=== PATIENT | male | born 1980 | race African-American/Black ===

== ENCOUNTER 2016-12-18 00:23 | Emergency (ER) | payer SELFPAY ==
[~2016-12-18] VITALS: Ht 172.7 cm; Wt 90.7 kg
[~2016-12-18 00:23] MED LIST: IBUPROFEN800 MG ORAL; PROTONIX40 M2 GT
[2016-12-18] MEDS ORDERED: NKM (00:41)
[2016-12-18 00:49] VITALS: BP 137/106
[2016-12-18] MEDS ORDERED: FUROSEMIDE40 MG ORAL (00:52)
[2016-12-18 00:59] VITALS: BP 137/106
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
== END 2016-12-18 01:05 | disposition home or self-care (01) ==
LOC: EMR 01:00
DX: M79.605 Pain in left leg (principal); M79.604 Pain in right leg; R60.9 Edema, unspecified
CPT/HCPCS: 99283

== ENCOUNTER 2016-12-28 23:45 | Inpatient (IN) | payer MEDICAID ==
[~2016-12-28] VITALS: Ht 172.7 cm; Wt 90.7 kg
[~2016-12-28 23:45] MED LIST changes: +FUROSEMIDE40 MG ORAL; +NKM
[2016-12-29] VITALS (8 sets, daily range): BP systolic 116–142; BP diastolic 58–103
[2016-12-29] MEDS ORDERED: ACETAMINOPHEN-1 EAC1 ORAL (00:09)
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
[2016-12-29] MEDS ORDERED: Ketorolac 30mg Inj IV ONE (01:00)
[2016-12-29 01:01] LABS: APPEARANCE,URINE CLEAR; KETONES,URINE NEGATIVE (NEGATIVE); LEUKOCYTE ESTERASE ,URINE NEGATIVE (NEGATIVE); NITRITE,URINE NEGATIVE (NEGATIVE); PH,URINE 6 (4.5-8.0); UROBILINOGEN,URINE 1 MG/DL (0.0-1.0)
[2016-12-29 01:07] LABS: BASOPHILS % (AUTO) 0.8 % (0.0-2.0); EOSINOPHILS % (AUTO) 0.6 % (0.0-3.0); LYMPHOCYTES % (AUTO) 29.5 % (20.0-45.0); MEAN CORPUSCULAR HEMOGLOBIN 28.4 PG (27.0-31.0); MEAN CORPUSCULAR HGB CONC 31.7 G/DL (32.0-36.0); MEAN CORPUSCULAR VOLUME 90 FL (80-99); MEAN PLATELET VOLUME 10.1 FL (6.5-10.1); MONOCYTES % (AUTO) 5.7 % (1.0-10.0); NEUTROPHILS % (AUTO) 63.4 % (45.0-75.0); PLATELET COUNT 226 K/UL (150-450); RED BLOOD COUNT 4.49 M/UL (4.70-6.10); RED CELL DISTRIBUTION WIDTH 13.1 % (11.6-14.8); WHITE BLOOD COUNT 13.5 K/UL (4.8-10.8)
[2016-12-29 01:08] LABS: PROTEIN,URINE NEGATIVE (NEGATIVE)
[2016-12-29 01:09] LABS: BACTERIA,URINE FEW /HPF; RBC,URINE 0 /HPF (0 - 0); SQUAMOUS EPITHELIAL CELL,UR FEW /LPF (NONE/OCC); WBC,URINE 0 /HPF (0 - 0)
[2016-12-29 01:13] LABS: TROPONIN I < 0.30 ng/mL (<=0.30)
[2016-12-29 01:16] LABS: ALANINE AMINOTRANSFERASE 42 U/L (3-41); ALBUMIN/GLOBULIN RATIO 1.1 (1.0-2.7); ANION GAP 17 (5-15); ASPARTATE AMINO TRANSFERASE 36 U/L (5-40); CALCIUM 8.7 mg/dL (8.6-10.2); CARBON DIOXIDE 22 mEQ/L (20-30); CHLORIDE 98 mEQ/L (98-107); CREATININE 1.2 mg/dL (0.7-1.2); GLOMERULAR FILTRATION RATE > 60 mL/min (>60); HEMOLYSIS 8; SODIUM 137 mEQ/L (135-145); TOTAL PROTEIN 6.4 g/dL (6.6-8.7)
[2016-12-29] MEDS ORDERED: DuoNeb 0.5-3(2.5)mg/3ml neb HHN PRN (08:00)
[2016-12-29] MEDS ORDERED: Miralax 17gm pkt ORAL PRN (08:00)
--- NOTE | 2016-12-29 08:35 | Cardiology Progress Note ---
Assessment/Plan Assessment/Plan leg pain dyspnea ? chf substance abuse he seems to be doing relatively well sat room air are 98-99% now await echo will need treatment for diastolci htn will need low dose acei for his htn if systolic dysunction will need further therpay otherwise he may be able to go home soon [id number] Objective Last 24 Hour Vital Signs Date Time Temp Pulse Resp B/P Pulse Ox O2 Delivery O2 Flow Rate FiO2 12/29/16 07:49 112 22 128/79 97 Room Air 12/29/16 07:20 98.0 110 18 139/99 99 Room Air 12/29/16 07:20 110 18 Room Air 12/29/16 05:25 97.4 107 17 122/83 98 Room Air 12/29/16 03:17 97.4 112 21 125/88 96 Room Air 12/29/16 01:37 97.4 12/29/16 00:17 97.4 115 21 129/91 100 Room Air 12/29/16 00:15 115 20 Room Air 12/29/16 00:04 128 128/106 95 Room Air Intake and Output 12/28/16 12/29/16 19:00 07:00 Output Total 600 ml Balance -600 ml Output Urine Total 600 ml # Voids 3 Laboratory Tests Test 12/29/16 00:45 White Blood Count 13.5 K/UL (4.8-10.8) H Red Blood Count 4.49 M/UL (4.70-6.10) L Hemoglobin 12.7 G/DL (14.2-18.0) L Hematocrit 40.2 % (42.0-52.0) L Mean Corpuscular Volume 90 FL (80-99) Mean Corpuscular Hemoglobin 28.4 PG (27.0-31.0) Mean Corpuscular Hemoglobin Concent 31.7 G/DL (32.0-36.0) L Red Cell Distribution Width 13.1 % (11.6-14.8) Platelet Count 226 K/UL (150-450) Mean Platelet Volume 10.1 FL (6.5-10.1) Neutrophils (%) (Auto) 63.4 % (45.0-75.0) Lymphocytes (%) (Auto) 29.5 % (20.0-45.0) Monocytes (%) (Auto) 5.7 % (1.0-10.0) Eosinophils (%) (Auto) 0.6 % (0.0-3.0) Basophils (%) (Auto) 0.8 % (0.0-2.0) Urine Color Yellow Urine Appearance Clear Urine pH 6 (4.5-8.0) Urine Specific [place] 1.020 (1.005-1.035) Urine Protein Negative (NEGATIVE) Urine Glucose (UA) Negative (NEGATIVE) Urine Ketones Negative (NEGATIVE) Urine Occult Blood Negative (NEGATIVE) Urine Nitrite Negative (NEGATIVE) Urine Bilirubin Negative (NEGATIVE) Urine Urobilinogen 1 MG/DL (0.0-1.0) H Urine Leukocyte Esterase Negative (NEGATIVE) Urine RBC 0 /HPF (0 - 0) Urine WBC 0 /HPF (0 - 0) Urine Squamous Epithelial Cells Few /LPF (NONE/OCC) Urine Bacteria Few /HPF (NONE) Sodium Level 137 mEQ/L (135-145) Potassium Level 4.0 mEQ/L (3.4-4.9) Chloride Level 98 mEQ/L (98-107) Carbon Dioxide Level 22 mEQ/L (20-30) Anion Gap 17 (5-15) H Blood Urea Nitrogen 19 mg/dL (7-23) Creatinine 1.2 mg/dL (0.7-1.2) Estimat Glomerular Filtration Rate > 60 mL/min (>60) Glucose Level 122 mg/dL (74-106) H Calcium Level 8.7 mg/dL (8.6-10.2) Total Bilirubin 0.6 mg/dL (0.0-1.2) Aspartate Amino Transf (AST/SGOT) 36 U/L (5-40) Alanine Aminotransferase (ALT/SGPT) 42 U/L (3-41) H Alkaline Phosphatase 126 U/L (40-129) Troponin I < 0.30 ng/mL (<=0.30) Pro-B-Type Natriuretic Peptide 2258 pg/mL (0-125) H Total Protein 6.4 g/dL (6.6-8.7) L Albumin 3.4 g/dL (3.5-5.2) L Globulin 3.0 g/dL Albumin/Globulin Ratio 1.1 (1.0-2.7) Urine Opiates Screen Negative (NEGATIVE) Urine Barbiturates Screen Negative (NEGATIVE) Phencyclidine (PCP) Screen Negative (NEGATIVE) Urine Amphetamines Screen Positive (NEGATIVE) H Urine Benzodiazepines Screen Negative (NEGATIVE) Urine Cocaine Screen Negative (NEGATIVE) Urine Marijuana (THC) Screen Positive (NEGATIVE) H MARY LARKIN Dec 29, 2016 08:35
[2016-12-29] MEDS ORDERED: Lisinopril 2.5mg tab ORAL SCH (09:00)
[2016-12-29 09:25] LABS: TROPONIN I < 0.30 ng/mL (<=0.30)
[2016-12-29] MEDS: Heparin 5000 units/ml inj SUBQ SCH ×2 (09:39→21:44)
--- NOTE | 2016-12-29 09:43 | Diagnostic Imaging Report ---
Indications: Shortness of breath Technique: Portable AP chest Findings: Comparison: None Suboptimal inspiration, lordotic projection, poor image quality due to exposure factors limit evaluation. Cardiac silhouette enlarged. Pulmonary vasculature difficult to evaluate. Hazy opacity right lung base. Left lung base not well evaluated. No obvious pleural abnormality. IMPRESSION: Limited exam due to technical factors described Suggestion of focal lung opacity right lung base, may be atelectatic, congestive, or pneumonic. Cardiomegaly Upright PA and lateral chest radiographs with better inspiratory effort and optimal technique recommended for more complete evaluation.
--- NOTE | 2016-12-29 10:19 | Consultation ---
DATE OF CONSULTATION: CARDIOLOGY CONSULTATION: CONSULTING PHYSICIAN: Geraldo Turner M.D. REFERRING PHYSICIAN: Erika Cote M.D. REASON FOR REFERRAL: Possible congestive heart failure. HISTORY OF PRESENT ILLNESS: This is a 36-year-old gentleman who presented to the emergency room because of leg pain for two weeks and shortness of breath for about 10 days cannot walk much. He states that he is short of breath in any position, does wake up at night because of shortness of breath . He has occasional pain in the chest that he had a difficult time explaining, but only lasted approximately few seconds and goes away by itself. No dizziness or lightheadedness. No heart pounding palpitations. PAST MEDICAL HISTORY: He denied diabetes, high blood pressure, heart attack, cancer, stroke, hepatitis, tuberculosis, asthma, emphysema, ulcers, kidney problems, liver problems, thyroid problems, anemia, arthritis, HIV, AIDS, and prior congestive heart failure. SOCIAL HISTORY: He occasionally smokes and occasionally drinks. He denies any drug use except for admitted to marijuana. REVIEW OF SYSTEMS: Gastrointestinal: Negative Genitourinary: Negative. Pulmonary: Negative. Constitutional: Negative. Neurologic: Negative. PHYSICAL EXAMINATION: GENERAL: Shows be overweight middle aged gentleman in no apparent respiratory distress. VITAL SIGNS: Blood pressure is anywhere between 122/83 to 139/99, heart rate is 112 to 115, temperature 97.4, and oxygen saturation 99% to 100% on room air is documented. NECK: Supple. No jugular venous distention. LUNGS: Relatively clear to auscultation although some forced expiratory breath sounds. The Doppler wave noted there is no crackles noted. CARDIAC: Regular rhythm. Tachycardic. No heaves, thrills, or gallops noted. ABDOMEN: Soft and obese. Positive bowel sounds. EXTREMITIES: There is trace edema of the lower extremities. NEUROLOGIC: He is awake, alert, and responsive. LABORATORY VALUES: Urine drug screen positive for amphetamines and positive for marijuana. White count 13.5, hemoglobin 12.7, and platelet count of 226,000. Sodium is 137, potassium 4.2, chloride 88, bicarbonate 22, BUN of 19, creatinine 1.2, and glucose of 122. Troponin less than 0.3. ProBNP is only 2200. Liver function tests appeared to be normal. Urinalysis appears to be unremarkable. Imaging, he cannot find any x-ray of the chest. Other data includes EKG, EKG shows a sinus tachycardia, rate of 120, and normal QRS axis and some nonspecific T-wave changes and some delay in R-wave progression. ASSESSMENT AND PLAN: 1. Leg pain. 2. Dyspnea. 3. Positive drug screen for marijuana and amphetamines. Dr. Cote, this patient was seen in cardiac consultation. Lungs appeared to be relatively clear. I am unable to locate the chest x-ray for review. However the emergency room physician indicates no consolidation, no pneumothorax, cardiomegaly with vascular congestion. The patient is being admitted with a diagnosis of congestive heart failure due to possible underlying drug abuse, which he absolutely denies and nevertheless an echocardiogram is needed to evaluate his systolic function. He does not have overt signs of heart failure on examination of significant degree although he has been treated in the emergency room. He was noted to have some slight rales at the bases on the emergency room physician's evaluation. He did have diastolic blood pressure being quite high with systolic appears to be intact. His oxygen saturations have been adequate. I would recommend waiting for an echocardiogram on him to see if he truly has any systolic or diastolic dysfunction and he is being treated with intravenous Lasix anyway if systolic dysfunction is present, then of course, he will need the therapy for that eventually. Dr. Cote, thank you for allowing me to participate in the care of this patient. Geraldo Turner M.D. DR: YU JOB#: [id number] CC:
--- NOTE | 2016-12-29 10:20 | History and Physical ---
History of Present Illness General Date patient seen: Dec 29, 2016 Reason for Hospitalization: Edema Present Illness HPI 36-year-old male with no past medical history presented with chief complaint of lower extremity and swelling. He had a cxr in ER showing severe cardiomegaly and chf and possible infiltrate. Allergies: Coded Allergies: No Known Allergies (Unverified , 08/25/13) Medication History Scheduled Furosemide* (Lasix*), 40 MG ORAL DAILY Ibuprofen* (Motrin*), 800 MG ORAL Q8H No Known Medications* (NKM - No Known Medications*), 0 ., (Reported) Pantoprazole Sodium (Protonix), 40 MG GT DAILY Discontinued Medications Acetaminophen With Codeine (T#3) (Tylenol #3 Tab*), 1 TAB ORAL Q4H PRN for For Pain, (Reported) Discontinued Reason: Therapy completed Patient History Healthcare decision maker Resuscitation status Advanced Directive on File Past Medical/Surgical History Past Medical/Surgical History: (1) Amphetamine abuse (2) Cardiomyopathy Review of Systems All Other Systems: negative except mentioned in HPI Physical Exam Lines, tubes and drains: peripheral, PICC HEENT: normocephalic, atraumatic Neck: non-tender, normal alignment Respiratory/Chest: chest wall non-tender, lungs clear Cardiovascular/Chest: normal peripheral pulses, normal rate Abdomen: normal bowel sounds Genitourinary/Rectal: normal genital exam, normal rectal exam Last 24 Hour Vital Signs Date Time Temp Pulse Resp B/P Pulse Ox O2 Delivery O2 Flow Rate FiO2 12/29/16 09:38 128/79 12/29/16 09:28 112 20 Room Air 12/29/16 07:49 112 22 128/79 97 Room Air 12/29/16 07:20 98.0 110 18 139/99 99 Room Air 12/29/16 07:20 110 18 Room Air 12/29/16 05:25 97.4 107 17 122/83 98 Room Air 12/29/16 03:17 97.4 112 21 125/88 96 Room Air 12/29/16 01:37 97.4 12/29/16 00:17 97.4 115 21 129/91 100 Room Air 12/29/16 00:15 115 20 Room Air 12/29/16 00:04 128 128/106 95 Room Air Intake and Output 12/28/16 12/29/16 19:00 07:00 Output Total 600 ml Balance -600 ml Output Urine Total 600 ml # Voids 3 Laboratory Tests Test 12/29/16 00:45 12/29/16 08:35 White Blood Count 13.5 K/UL (4.8-10.8) H Red Blood Count 4.49 M/UL (4.70-6.10) L Hemoglobin 12.7 G/DL (14.2-18.0) L Hematocrit 40.2 % (42.0-52.0) L Mean Corpuscular Volume 90 FL (80-99) Mean Corpuscular Hemoglobin 28.4 PG (27.0-31.0) Mean Corpuscular Hemoglobin Concent 31.7 G/DL (32.0-36.0) L Red Cell Distribution Width 13.1 % (11.6-14.8) Platelet Count 226 K/UL (150-450) Mean Platelet Volume 10.1 FL (6.5-10.1) Neutrophils (%) (Auto) 63.4 % (45.0-75.0) Lymphocytes (%) (Auto) 29.5 % (20.0-45.0) Monocytes (%) (Auto) 5.7 % (1.0-10.0) Eosinophils (%) (Auto) 0.6 % (0.0-3.0) Basophils (%) (Auto) 0.8 % (0.0-2.0) Urine Color Yellow Urine Appearance Clear Urine pH 6 (4.5-8.0) Urine Specific [place] 1.020 (1.005-1.035) Urine Protein Negative (NEGATIVE) Urine Glucose (UA) Negative (NEGATIVE) Urine Ketones Negative (NEGATIVE) Urine Occult Blood Negative (NEGATIVE) Urine Nitrite Negative (NEGATIVE) Urine Bilirubin Negative (NEGATIVE) Urine Urobilinogen 1 MG/DL (0.0-1.0) H Urine Leukocyte Esterase Negative (NEGATIVE) Urine RBC 0 /HPF (0 - 0) Urine WBC 0 /HPF (0 - 0) Urine Squamous Epithelial Cells Few /LPF (NONE/OCC) Urine Bacteria Few /HPF (NONE) Sodium Level 137 mEQ/L (135-145) Potassium Level 4.0 mEQ/L (3.4-4.9) Chloride Level 98 mEQ/L (98-107) Carbon Dioxide Level 22 mEQ/L (20-30) Anion Gap 17 (5-15) H Blood Urea Nitrogen 19 mg/dL (7-23) Creatinine 1.2 mg/dL (0.7-1.2) Estimat Glomerular Filtration Rate > 60 mL/min (>60) Glucose Level 122 mg/dL (74-106) H Calcium Level 8.7 mg/dL (8.6-10.2) Total Bilirubin 0.6 mg/dL (0.0-1.2) Aspartate Amino Transf (AST/SGOT) 36 U/L (5-40) Alanine Aminotransferase (ALT/SGPT) 42 U/L (3-41) H Alkaline Phosphatase 126 U/L (40-129) Troponin I < 0.30 ng/mL (<=0.30) < 0.30 ng/mL (<=0.30) Pro-B-Type Natriuretic Peptide 2258 pg/mL (0-125) H Total Protein 6.4 g/dL (6.6-8.7) L Albumin 3.4 g/dL (3.5-5.2) L Globulin 3.0 g/dL Albumin/Globulin Ratio 1.1 (1.0-2.7) Urine Opiates Screen Negative (NEGATIVE) Urine Barbiturates Screen Negative (NEGATIVE) Phencyclidine (PCP) Screen Negative (NEGATIVE) Urine Amphetamines Screen Positive (NEGATIVE) H Urine Benzodiazepines Screen Negative (NEGATIVE) Urine Cocaine Screen Negative (NEGATIVE) Urine Marijuana (THC) Screen Positive (NEGATIVE) H Height (Feet): 5 Height (Inches): 8.00 Weight (Pounds): 200 Medications Current Medications Medications (Trade) Dose Ordered Sig/Leonora Route PRN Reason Start Time Stop Time Status Last Admin Dose Admin Acetaminophen (Tylenol) 650 mg Q4H PRN ORAL Fever>100.5 12/29/16 08:00 01/28/17 07:59 Albuterol/ Ipratropium (DuoNeb 0.5-3(2.5)mg/3ml) 3 ml Q4H PRN HHN Shortness of Breath 12/29/16 08:00 01/03/17 07:59 Dextrose (Dextrose 50%) STAT PRN IV Hypoglycemia 12/29/16 08:00 01/28/17 07:59 Furosemide (Lasix) 40 mg EVERY 8 HOURS IV 12/29/16 14:00 01/28/17 13:59 UNV Heparin Sodium (Porcine) (Heparin 5000 units/ml) 5,000 units EVERY 12 HOURS SUBQ 12/29/16 09:00 01/28/17 08:59 12/29/16 09:39 Lisinopril (Zestril) 5 mg DAILY ORAL 12/29/16 09:00 01/28/17 08:59 12/29/16 09:38 Ondansetron HCl (Zofran) 4 mg Q6H PRN IVP Nausea & Vomiting 12/29/16 08:00 01/28/17 07:59 Polyethylene Glycol (Miralax) 17 gm DAILYPRN PRN ORAL Constipation 12/29/16 08:00 01/28/17 07:59 Temazepam (Restoril) 15 mg HSPRN PRN ORAL Insomnia 12/29/16 21:00 01/05/17 20:59 Assessment/Plan Problem List: (1) Acute on chronic diastolic (congestive) heart failure ICD Codes: I50.33 - Acute on chronic diastolic (congestive) heart failure SNOMED: 06131116, 884033372 (2) Amphetamine abuse ICD Codes: F15.10 - Other stimulant abuse, uncomplicated SNOMED: 80228895 Assessment/Plan diuretics respiratory treatment cardiology evaluation sputum for c/s, iv antibiotics for potential Pneumonia MARY CORRIGAN Dec 29, 2016 10:20
--- NOTE | 2016-12-29 12:43 | Cardiology Report ---
APPROVED REPORT EXAM: Two-dimensional and M-mode echocardiogram with Doppler and color Doppler. INDICATION Left ventricular function M-Mode DIMENSIONS IVSd1.1 (0.7-1.1cm)Left Atrium (MM)5.2 (1.6-4.0cm) LVDd6.3 (3.5-5.6cm)Aortic Root2.9 (2.0-3.7cm) PWd1.1 (0.7-1.1cm)Aortic Cusp Exc.1.8 (1.5-2.0cm) LVDs6.1 (2.5-4.0cm) PWs1.3 cm Mild left ventricular enlargement. Global left ventricular hypokinesis.Septal dyskinesis. Left ventricular ejection fraction estimated to be less than 20 %. No evidence of left ventricular hypertrophy. No evidence of pericardial fat or effusion. Moderate bi-atrial enlargement by 2D. Focal aortic valve sclerosis with adequate cusp excursion Thickened mitral valve leaflets with normal excursion. Mitral annulus and aortic root calcification. Pulmonic valve not well visualized. Normal tricuspid valve structure. IVC dilated at 2.3cm with no physiologic collapse. A color flow and spectral Doppler study was performed and revealed: Mild aortic regurgitation. Moderate mitral regurgitation (3jets). Left ventricular diastolic dysfunction not obtainable due to A-FIB. Moderate tricuspid regurgitation. Tricuspid systolic velocities suggests peak right ventricular systolic pressure of 49 mmHg Consistent with moderate pulmonary hypertension.
[2016-12-29] MEDS ORDERED: Ketorolac 30mg Inj IV PRN (13:00)
--- NOTE | 2016-12-29 14:32 | Cardiology Report ---
APPROVED REPORT EKG Measurement Heart [id number] Sinus tachycardia with fusion complexes Cannot rule out Anterior infarct, age undetermined Abnormal ECG
[2016-12-30 00:20] VITALS: BP 132/90
[2016-12-30 04:13] VITALS: BP 130/86
[2016-12-30 07:58] LABS: BASOPHILS % (AUTO) 0.8 % (0.0-2.0); EOSINOPHILS % (AUTO) 1.4 % (0.0-3.0); LYMPHOCYTES % (AUTO) 26.5 % (20.0-45.0); MEAN CORPUSCULAR HEMOGLOBIN 27.4 PG (27.0-31.0); MEAN CORPUSCULAR HGB CONC 30.3 G/DL (32.0-36.0); MEAN CORPUSCULAR VOLUME 90 FL (80-99); MEAN PLATELET VOLUME 9.2 FL (6.5-10.1); MONOCYTES % (AUTO) 6.2 % (1.0-10.0); NEUTROPHILS % (AUTO) 65.2 % (45.0-75.0); PLATELET COUNT 226 K/UL (150-450); RED BLOOD COUNT 4.73 M/UL (4.70-6.10); RED CELL DISTRIBUTION WIDTH 13.1 % (11.6-14.8); WHITE BLOOD COUNT 13.2 K/UL (4.8-10.8)
[2016-12-30 08:01] VITALS: BP 118/80
[2016-12-30] MEDS: Heparin 5000 units/ml inj SUBQ SCH ×2 (08:14→21:18)
[2016-12-30 08:21] LABS: ALANINE AMINOTRANSFERASE 37 U/L (3-41); ALBUMIN/GLOBULIN RATIO 1.1 (1.0-2.7); ANION GAP 13 (5-15); ASPARTATE AMINO TRANSFERASE 28 U/L (5-40); CALCIUM 8.9 mg/dL (8.6-10.2); CARBON DIOXIDE 27 mEQ/L (20-30); CHLORIDE 99 mEQ/L (98-107); CREATININE 1.1 mg/dL (0.7-1.2); GLOMERULAR FILTRATION RATE > 60 mL/min (>60); HEMOLYSIS 1; POTASSIUM 3.7 mEQ/L (3.4-4.9); SODIUM 139 mEQ/L (135-145); TOTAL PROTEIN 6.6 g/dL (6.6-8.7)
[2016-12-30 08:51] LABS: BILIRUBIN,DIRECT 0.3 mg/dL (0.1-0.3)
[2016-12-30] MEDS ORDERED: Lisinopril 10mg tab ORAL SCH (09:00)
[2016-12-30 09:30] LABS: ANION GAP 18 (5-15); CALCIUM 8.9 mg/dL (8.6-10.2); CARBON DIOXIDE 24 mEQ/L (20-30); CHLORIDE 97 mEQ/L (98-107); CREATININE 1.1 mg/dL (0.7-1.2); GLOMERULAR FILTRATION RATE > 60 mL/min (>60); HEMOLYSIS 3; PHOSPHORUS 3.8 mg/dL (2.5-4.8); POTASSIUM 3.6 mEQ/L (3.4-4.9); SODIUM 139 mEQ/L (135-145)
[2016-12-30 09:31] LABS: TROPONIN I < 0.30 ng/mL (<=0.30)
--- NOTE | 2016-12-30 11:01 | Diagnostic Imaging Report ---
Indication: DYSPNEA Technique: One view of the chest Comparison: 12/29/2016 Findings: The heart is enlarged. There is bilateral interstitial edema again demonstrated. This appears slightly improved, although that could be an artifact of slightly increased exposure technique of the current study. Pleural spaces are clear. Impression: Bilateral interstitial edema, equivocally slightly improved over one day. Otherwise stable
[2016-12-30 11:20] VITALS: BP 121/81
--- NOTE | 2016-12-30 15:09 | Pulmonology Progress Note ---
Assessment/Plan Problems: (1) Acute on chronic diastolic (congestive) heart failure (2) Amphetamine abuse Assessment/Plan diuresing well echo is 20% convinced the patient to stay until seen by alumina refinery operator Subjective ROS Limited/Unobtainable: No Interval Events: less short of breath Allergies: Coded Allergies: No Known Allergies (Unverified , 08/25/13) Objective Last 24 Hour Vital Signs Date Time Temp Pulse Resp B/P Pulse Ox O2 Delivery O2 Flow Rate FiO2 12/30/16 12:00 122 12/30/16 11:20 97.9 120 20 121/81 100 Room Air 12/30/16 08:10 118/80 12/30/16 08:01 96.6 118 20 118/80 96 Nasal Cannula 3.0 12/30/16 08:00 121 12/30/16 04:13 98.6 110 21 130/86 98 Room Air 12/30/16 04:00 119 12/30/16 00:20 97.8 110 20 132/90 99 Nasal Cannula 2.0 12/30/16 00:00 120 12/29/16 20:00 96.6 69 19 132/78 100 Room Air 12/29/16 20:00 120 12/29/16 19:30 90 20 Room Air 21 12/29/16 17:09 123/98 Room Air 12/29/16 16:00 96.9 117 18 142/103 97 Nasal Cannula 2.0 Intake and Output 12/29/16 12/30/16 19:00 07:00 Intake Total 900 ml Output Total 1700 ml 1600 ml Balance -800 ml -1600 ml Intake Oral 800 ml IV Total 100 ml Output Urine Total 1700 ml 1600 ml # Voids 1 General Appearance: WD/WN HEENT: normocephalic, atraumatic Respiratory/Chest: lungs clear Abdomen: normal bowel sounds, soft, non tender Extremities: no cyanosis Laboratory Tests 12/30/16 06:55: White Blood Count 13.2H, Red Blood Count 4.73, Hemoglobin 13.0L, Hematocrit 42.8 , Mean Corpuscular Volume 90, Mean Corpuscular Hemoglobin 27.4, Mean Corpuscular Hemoglobin Concent 30.3L, Red Cell Distribution Width 13.1, Platelet Count 226, Mean Platelet Volume 9.2, Neutrophils (%) (Auto) 65.2, Lymphocytes (%) (Auto) 26.5, Monocytes (%) (Auto) 6.2, Eosinophils (%) (Auto) 1.4, Basophils (%) (Auto) 0.8, Sodium Level 139, Potassium Level 3.7, Chloride Level 99, Carbon Dioxide Level 27, Anion Gap 13, Blood Urea Nitrogen 15, Creatinine 1.1, Estimat Glomerular Filtration Rate > 60, Glucose Level 105, Calcium Level 8.9, Phosphorus Level 3.8, Total Bilirubin 1.2, Direct Bilirubin 0.3, Aspartate Amino Transf (AST/SGOT) 28, Alanine Aminotransferase (ALT/SGPT) 37, Alkaline Phosphatase 114, Troponin I < 0.30, Pro-B-Type Natriuretic Peptide 2162H, Total Protein 6.6, Albumin 3.5, Globulin 3.1, Albumin/Globulin Ratio 1.1 Current Medications Medications (Trade) Dose Ordered Sig/Leonora Route PRN Reason Start Time Stop Time Status Last Admin Dose Admin Acetaminophen (Tylenol) 650 mg Q4H PRN ORAL Fever/Headache/Mild Pain 12/29/16 22:00 01/28/17 21:59 12/30/16 13:01 Acetaminophen/ Hydrocodone Bitart ([place] 5/325) 1 tab Q4H PRN ORAL Moderate Pain (Pain Scale 4-6) 12/30/16 15:15 01/06/17 15:14 UNV Albuterol/ Ipratropium (DuoNeb 0.5-3(2.5)mg/3ml) 3 ml Q4H PRN HHN Shortness of Breath 12/29/16 08:00 01/03/17 07:59 Dextrose (Dextrose 50%) STAT PRN IV Hypoglycemia 12/29/16 08:00 01/28/17 07:59 Furosemide (Lasix) 40 mg TID IV 12/29/16 13:00 01/28/17 12:59 12/30/16 12:58 Heparin Sodium (Porcine) (Heparin 5000 units/ml) 5,000 units EVERY 12 HOURS SUBQ 12/29/16 09:00 01/28/17 08:59 12/30/16 08:14 Levofloxacin (Levaquin) 100 ml @ 100 mls/hr Q24H IVPB 12/29/16 13:00 01/05/17 12:59 12/30/16 12:59 Lisinopril 10 mg 10 mg DAILY ORAL 12/30/16 09:00 01/29/17 08:59 12/30/16 08:10 Ondansetron HCl (Zofran) 4 mg Q6H PRN IVP Nausea & Vomiting 12/29/16 08:00 01/28/17 07:59 Polyethylene Glycol (Miralax) 17 gm DAILYPRN PRN ORAL Constipation 12/29/16 08:00 01/28/17 07:59 Temazepam (Restoril) 30 mg HSPRN PRN ORAL Insomnia 12/30/16 21:00 01/06/17 20:59 MARY CORRIGAN Dec 30, 2016 15:09
[2016-12-30] MEDS ORDERED: Norco 5mg/325mg tab ORAL PRN (15:15)
[2016-12-30 16:00] VITALS: BP 129/77
--- NOTE | 2016-12-30 16:32 | Cardiology Progress Note ---
Assessment/Plan Assessment/Plan leg pain acute systolic heart failure substance abuse cardio,myopathy MR pulm htn wbc is still elevated blood cx are not mature yet need med adjusted i have extensively discussed with pt about stopping drugs and avoid excessive water and na intake he has a obrien sandwich at bedside i told him he need to stop eating that way will contimnue diuretic increase acei i am avoiding giving him bb as his uds positive for amphetamine may start coreg tomorrow d/w dr elizabeth the need for fu with acardiologst to follow and adjust meds as well as other things he may need for microchip specialist was discused with pt he understood he also understood the need to take meds and that these meds amparo lneed to be adjusted intermediate duplex neg Subjective Cardiovascular: Denies: chest pain, irregular heart rate, lightheadedness Respiratory: Denies: SOB with excertion Objective Last 24 Hour Vital Signs Date Time Temp Pulse Resp B/P Pulse Ox O2 Delivery O2 Flow Rate FiO2 12/30/16 12:00 122 12/30/16 11:20 97.9 120 20 121/81 100 Room Air 12/30/16 08:10 118/80 12/30/16 08:01 96.6 118 20 118/80 96 Nasal Cannula 3.0 12/30/16 08:00 121 12/30/16 04:13 98.6 110 21 130/86 98 Room Air 12/30/16 04:00 119 12/30/16 00:20 97.8 110 20 132/90 99 Nasal Cannula 2.0 12/30/16 00:00 120 12/29/16 20:00 96.6 69 19 132/78 100 Room Air 12/29/16 20:00 120 12/29/16 19:30 90 20 Room Air 21 12/29/16 17:09 123/98 Room Air General Appearance: no apparent distress, alert Neck: supple Cardiovascular: normal rate, regular rhythm Respiratory/Chest: lungs clear, normal breath sounds Abdomen: normal bowel sounds, non tender, soft Extremities: moderate edema Intake and Output 12/29/16 12/30/16 19:00 07:00 Intake Total 900 ml Output Total 1700 ml 1600 ml Balance -800 ml -1600 ml Intake Oral 800 ml IV Total 100 ml Output Urine Total 1700 ml 1600 ml # Voids 1 Laboratory Tests Test 2/15/17 06:55 White Blood Count 13.2 K/UL (4.8-10.8) H Red Blood Count 4.73 M/UL (4.70-6.10) Hemoglobin 13.0 G/DL (14.2-18.0) L Hematocrit 42.8 % (42.0-52.0) Mean Corpuscular Volume 90 FL (80-99) Mean Corpuscular Hemoglobin 27.4 PG (27.0-31.0) Mean Corpuscular Hemoglobin Concent 30.3 G/DL (32.0-36.0) L Red Cell Distribution Width 13.1 % (11.6-14.8) Platelet Count 226 K/UL (150-450) Mean Platelet Volume 9.2 FL (6.5-10.1) Neutrophils (%) (Auto) 65.2 % (45.0-75.0) Lymphocytes (%) (Auto) 26.5 % (20.0-45.0) Monocytes (%) (Auto) 6.2 % (1.0-10.0) Eosinophils (%) (Auto) 1.4 % (0.0-3.0) Basophils (%) (Auto) 0.8 % (0.0-2.0) Sodium Level 139 mEQ/L (135-145) Potassium Level 3.7 mEQ/L (3.4-4.9) Chloride Level 99 mEQ/L (98-107) Carbon Dioxide Level 27 mEQ/L (20-30) Anion Gap 13 (5-15) Blood Urea Nitrogen 15 mg/dL (7-23) Creatinine 1.1 mg/dL (0.7-1.2) Estimat Glomerular Filtration Rate > 60 mL/min (>60) Glucose Level 105 mg/dL (74-106) Calcium Level 8.9 mg/dL (8.6-10.2) Phosphorus Level 3.8 mg/dL (2.5-4.8) Total Bilirubin 1.2 mg/dL (0.0-1.2) Direct Bilirubin 0.3 mg/dL (0.1-0.3) Aspartate Amino Transf (AST/SGOT) 28 U/L (5-40) Alanine Aminotransferase (ALT/SGPT) 37 U/L (3-41) Alkaline Phosphatase 114 U/L (40-129) Troponin I < 0.30 ng/mL (<=0.30) Pro-B-Type Natriuretic Peptide 2162 pg/mL (0-125) H Total Protein 6.6 g/dL (6.6-8.7) Albumin 3.5 g/dL (3.5-5.2) Globulin 3.1 g/dL Albumin/Globulin Ratio 1.1 (1.0-2.7) MARY LARKIN Dec 30, 2016 16:32
[2016-12-30 20:00] VITALS: BP 129/84
[2016-12-30] MEDS: Lisinopril 10mg tab ORAL SCH (21:18)
[2016-12-31 00:08] VITALS: BP 138/90
[2016-12-31 04:06] VITALS: BP 131/84
[2016-12-31 06:53] LABS: ANION GAP 15 (5-15); CARBON DIOXIDE 28 mEQ/L (20-30); CHLORIDE 96 mEQ/L (98-107); CREATININE 1.2 mg/dL (0.7-1.2); GLOMERULAR FILTRATION RATE > 60 mL/min (>60); HEMOLYSIS 7; MAGNESIUM 1.9 mg/dL (1.7-2.5); POTASSIUM 3.8 mEQ/L (3.4-4.9); SODIUM 139 mEQ/L (135-145)
[2016-12-31 06:56] LABS: TROPONIN I < 0.30 ng/mL (<=0.30)
[2016-12-31 07:39] VITALS: BP 117/87
[2016-12-31] MEDS: Lisinopril 10mg tab ORAL SCH (08:52)
[2016-12-31] MEDS: Heparin 5000 units/ml inj SUBQ SCH (08:54)
[2016-12-31 11:24] VITALS: BP 123/77
[2016-12-31 16:00] VITALS: BP 137/74
[2016-12-31] MEDS ORDERED: COREG3.125 MG ORAL (16:53)
--- NOTE | 2016-12-31 16:55 | Pulmonology Progress Note ---
Assessment/Plan Problems: (1) Acute on chronic diastolic (congestive) heart failure (2) Amphetamine abuse Assessment/Plan diuresing well echo is 20% pt wants to go home will dc on coreg and lasix pt understands the gravity of his illness Subjective ROS Limited/Unobtainable: No Constitutional: Reports: no symptoms HEENT: Repors: no symptoms Allergies: Coded Allergies: No Known Allergies (Unverified , 08/25/13) Objective Last 24 Hour Vital Signs Date Time Temp Pulse Resp B/P Pulse Ox O2 Delivery O2 Flow Rate FiO2 12/31/16 12:00 115 12/31/16 11:24 96.3 117 20 123/77 98 Room Air 12/31/16 08:52 121 117/87 12/31/16 08:52 117/87 12/31/16 08:00 119 12/31/16 07:39 97.3 121 20 117/87 99 Room Air 12/31/16 07:10 103 21 Room Air 21 12/31/16 04:06 98.7 119 20 131/84 98 Room Air 12/31/16 04:00 120 12/31/16 00:08 98.8 114 22 138/90 97 Room Air 12/31/16 00:00 125 12/30/16 21:18 129/84 12/30/16 20:00 97.7 125 20 129/84 97 Room Air 12/30/16 19:30 115 20 Room Air 21 Intake and Output 12/30/16 12/31/16 19:00 07:00 Intake Total 1340 ml 480 ml Output Total 2975 ml 1150 ml Balance -1635 ml -670 ml Intake Oral 1240 ml 480 ml IV Total 100 ml Output Urine Total 2975 ml 1150 ml # Voids 2 General Appearance: WD/WN HEENT: normocephalic Respiratory/Chest: chest wall non-tender, lungs clear Cardiovascular: normal peripheral pulses, normal rate Abdomen: normal bowel sounds, soft, non tender Skin: no rash Neurologic/Psychiatric: senior talent acquisition specialist II-XII grossly normal Microbiology Date/Time Source Procedure Growth Status 12/29/16 14:00 Blood Blood Culture - Preliminary NO GROWTH AFTER 24 HOURS Resulted 12/29/16 13:45 Blood Blood Culture - Preliminary NO GROWTH AFTER 24 HOURS Resulted Laboratory Tests 12/31/16 06:00: Sodium Level 139, Potassium Level 3.8, Chloride Level 96L, Carbon Dioxide Level 28, Anion Gap 15, Blood Urea Nitrogen 20, Creatinine 1.2, Estimat Glomerular Filtration Rate > 60, Glucose Level 121H, Calcium Level 9.0, Magnesium Level 1.9 , Troponin I < 0.30, Pro-B-Type Natriuretic Peptide 2066H Current Medications Medications (Trade) Dose Ordered Sig/Leonora Route PRN Reason Start Time Stop Time Status Last Admin Dose Admin Acetaminophen (Tylenol) 650 mg Q4H PRN ORAL Fever/Headache/Mild Pain 12/29/16 22:00 01/28/17 21:59 12/30/16 13:01 Acetaminophen/ Hydrocodone Bitart ([place] 5/325) 1 tab Q4H PRN ORAL Moderate Pain (Pain Scale 4-6) 12/30/16 15:15 01/06/17 15:14 Albuterol/ Ipratropium 3 ml 3 ml Q4H PRN HHN Shortness of Breath 12/29/16 08:00 01/03/17 07:59 Carvedilol (Coreg) 3.125 mg EVERY 12 HOURS ORAL 12/31/16 09:00 01/30/17 08:59 12/31/16 08:52 Dextrose (Dextrose 50%) STAT PRN IV Hypoglycemia 12/29/16 08:00 01/28/17 07:59 Furosemide (Lasix) 40 mg TID IV 12/29/16 13:00 01/28/17 12:59 12/31/16 12:07 Heparin Sodium (Porcine) (Heparin 5000 units/ml) 5,000 units EVERY 12 HOURS SUBQ 12/29/16 09:00 01/28/17 08:59 12/31/16 08:54 Levofloxacin (Levaquin) 100 ml @ 100 mls/hr Q24H IVPB 12/29/16 13:00 01/05/17 12:59 12/31/16 12:07 Lisinopril (Zestril) 10 mg Q12HR ORAL 12/30/16 21:00 01/29/17 20:59 12/31/16 08:52 Ondansetron HCl (Zofran) 4 mg Q6H PRN IVP Nausea & Vomiting 12/29/16 08:00 01/28/17 07:59 Polyethylene Glycol (Miralax) 17 gm DAILYPRN PRN ORAL Constipation 12/29/16 08:00 01/28/17 07:59 Temazepam (Restoril) 30 mg HSPRN PRN ORAL Insomnia 12/30/16 21:00 01/06/17 20:59 12/30/16 21:17 MARY CORRIGAN Dec 31, 2016 16:55
--- NOTE | 2016-12-31 18:27 | Cardiology Progress Note ---
Assessment/Plan Assessment/Plan leg pain acute systolic heart failure substance abuse cardio,myopathy MR pulm htn wbc is still elevated blood cx neg so far again today 12/31/2016 i have extensively discussed with pt about stopping drugs and avoid excessive water and na intake he has a obrien sandwich at bedside i told him he need to stop eating that way will contimnue diuretic increase acei i am avoiding giving him bb as his uds positive for amphetamine may start coreg tomorrow need for fu with acardiologst to follow and adjust meds as well as other things he may need for residential was discused with pt he understood he also understood the need to take meds and that these meds amparo lneed to be adjusted residential duplex neg i wrote perscription fo hsi acei adn coreg adn diuretic Subjective Cardiovascular: Denies: chest pain, lightheadedness, palpitations Respiratory: Denies: SOB with excertion, shortness of breath Gastrointestinal/Abdominal: Denies: abdominal pain Genitourinary: Denies: burning Objective Last 24 Hour Vital Signs Date Time Temp Pulse Resp B/P Pulse Ox O2 Delivery O2 Flow Rate FiO2 12/31/16 16:00 96.6 117 20 137/74 Nasal Cannula 2.0 99 12/31/16 12:00 115 12/31/16 11:24 96.3 117 20 123/77 98 Room Air 12/31/16 08:52 121 117/87 12/31/16 08:52 117/87 12/31/16 08:00 119 12/31/16 07:39 97.3 121 20 117/87 99 Room Air 12/31/16 07:10 103 21 Room Air 21 12/31/16 04:06 98.7 119 20 131/84 98 Room Air 12/31/16 04:00 120 12/31/16 00:08 98.8 114 22 138/90 97 Room Air 12/31/16 00:00 125 12/30/16 21:18 129/84 12/30/16 20:00 97.7 125 20 129/84 97 Room Air 12/30/16 19:30 115 20 Room Air 21 General Appearance: no apparent distress, alert Neck: supple Cardiovascular: normal rate, regular rhythm Respiratory/Chest: lungs clear Abdomen: normal bowel sounds, non tender, soft Extremities: no swelling Intake and Output 12/30/16 12/31/16 19:00 07:00 Intake Total 1340 ml 480 ml Output Total 2975 ml 1150 ml Balance -1635 ml -670 ml Intake Oral 1240 ml 480 ml IV Total 100 ml Output Urine Total 2975 ml 1150 ml # Voids 2 Laboratory Tests Test 12/31/16 06:00 Sodium Level 139 mEQ/L (135-145) Potassium Level 3.8 mEQ/L (3.4-4.9) Chloride Level 96 mEQ/L (98-107) L Carbon Dioxide Level 28 mEQ/L (20-30) Anion Gap 15 (5-15) Blood Urea Nitrogen 20 mg/dL (7-23) Creatinine 1.2 mg/dL (0.7-1.2) Estimat Glomerular Filtration Rate > 60 mL/min (>60) Glucose Level 121 mg/dL (74-106) H Calcium Level 9.0 mg/dL (8.6-10.2) Magnesium Level 1.9 mg/dL (1.7-2.5) Troponin I < 0.30 ng/mL (<=0.30) Pro-B-Type Natriuretic Peptide 2066 pg/mL (0-125) H Microbiology Date/Time Source Procedure Growth Status 12/29/16 14:00 Blood Blood Culture - Preliminary NO GROWTH AFTER 24 HOURS Resulted 12/29/16 13:45 Blood Blood Culture - Preliminary NO GROWTH AFTER 24 HOURS Resulted MARY LARKIN Dec 31, 2016 18:27
[2016-12-31] MEDS ORDERED: LISINOPRIL5 MG ORAL (18:35)
[2016-12-31] MEDS ORDERED: NS 275ml ONE (20:14)
[2016-12-31] MEDS ORDERED: Tubing IV Secondary IV ONE (20:14)
--- NOTE | 2017-01-01 12:08 | Discharge Summary ---
Discharge Summary Hospital Course Date of Admission Dec 29, 2016 at 02:23 Date of Discharge Dec 31, 2016 at 20:15 Admitting Diagnosis CHF HPI Tariq Crocker is a 36 year old male who was admitted on Dec 29, 2016 at 02 :23 for Congestive Heart Failure Hospital Course [id number] Discharge Discharge Disposition Patient was discharged to Home (01) Discharge Diagnoses: Natty Bender NP Jan 01, 2017 12:08
--- NOTE | 2017-01-01 15:00 | Cardiology Report ---
APPROVED REPORT EKG Measurement Heart [id number] Sinus tachycardia Possible Left atrial enlargement Cannot rule out Anterior infarct, age undetermined Abnormal ECG
--- NOTE | 2017-01-01 20:39 | Discharge Summary 2 SIG ---
DATE OF ADMISSION: 12/29/2016 DATE OF DISCHARGE: 12/31/2016 LINE HAUL DRIVER: Geraldo Turner M.D. BRIEF HOSPITAL COURSE: The patient is a 36-year-old male with no past medical history, presented with chief complaint of lower extremities swelling. On evaluation at the ED, chest x-ray showed severe cardiomegaly and congestive heart failure with possible infiltrates. Urine toxicology was positive for amphetamines. He was given respiratory treatment and IV antibiotics. Dr. Turner was consulted. EKG showed sinus tachycardia, rate of 120 with normal QRS axis, and nonspecific T-wave changes and some delay in R-wave progression. Urine drug screen was positive for marijuana and amphetamine. The patient's congestive heart failure possible due to underlying drug abuse, which he absolutely denies. Echocardiogram done showed ejection fraction less than 20% with global left ventricular hypokinesis, left ventricular enlargement, and moderate hypertension. He was educated on stopping illicit drugs and was educated to avoid excessive water and sodium intake. He was given diuretics and SIVA inhibitors. Venous duplex was negative. He was advised need for follow up with software qa manager to adjust his medications. He was discharged to home with prescription for SIVA inhibitor, Coreg, and diuretics. FINAL DIAGNOSES: 1. Acute systolic congestive heart failure. 2. Polysubstance abuse. 3. Cardiomyopathy. 4. Mitral regurgitation. 5. Pulmonary hypertension. 6. Amphetamine and marijuana use. Erika Cote M.D. I have been assigned to dictate discharge summary on this account and I was not involved in the patient's management. Natty Bender N.P. DR: OPAL JOB#: [id number] CC: SPARKLE
--- NOTE | 2017-01-01 21:48 | Diagnostic Imaging Report ---
APPROVED REPORT CPT Code: 62840 Present Symptoms Comments: R/O DVT BILATERAL: Imaging reveals a patent deep venous system bilaterally. There is no evidence of thrombus within the femoral, popliteal or tibial segments. The greater saphenous veins are also within normal limits. Doppler indicates normal spontaneous flow within these segments.
== END 2016-12-31 20:15 | disposition home or self-care (01) | DRG 194 ==
LOC: EMR 12-29 00:17 → 2W 12-29 02:23 → EDBEDREQ 12-29 06:21 → 2E 12-29 18:15
DX: I50.43 Acute on chronic combined systolic (congestive) and diastolic (congestive) heart failure (principal); I27.2 Other secondary pulmonary hypertension; I42.9 Cardiomyopathy, unspecified; E66.9 Obesity, unspecified; F15.10 Other stimulant abuse, uncomplicated; F17.200 Nicotine dependence, unspecified, uncomplicated; I34.0 Nonrheumatic mitral (valve) insufficiency; Z68.30 Body mass index [BMI] 30.0-30.9, adult
CPT/HCPCS: 36415; 71010; 80048; 80053; 80069; 80300; 81001; 82248; 83735; 83880; 84484; 85025; 87040; 93005; 93306; 93970; 94664; J7620

== ENCOUNTER 2017-02-15 07:55 | Emergency (ER) | payer SELFPAY ==
[~2017-02-15] VITALS: Ht 172.7 cm; Wt 100.7 kg
[~2017-02-15 07:55] MED LIST changes: +ACETAMINOPHEN-1 EAC1 ORAL; +COREG3.125 MG ORAL; +LISINOPRIL5 MG ORAL
[2017-02-15 08:30] VITALS: BP 131/92
[2017-02-15] MEDS ORDERED: FUROSEMIDE40 MG ORAL ×2 (08:41→08:44)
[2017-02-15] MEDS ORDERED: LISINOPRIL5 MG ORAL (08:41)
[2017-02-15] MEDS ORDERED: COREG3.125 MG ORAL (08:41)
[2017-02-15 08:59] VITALS: BP 126/98
--- NOTE | 2017-02-15 10:53 | Emergency Room Report ---
History of Present Illness General Chief Complaint: Dyspnea/Respdistress Source: Patient Present Illness HPI [id number] presents with request for medication refill. Requesting refill of Lasix and 2 HTN meds. C/o mild SOB since running out of meds. Denies chest pain, cough, fever/chills, leg pain/swelling. Denies drug use - states "clean" since December. Per EMR, history of ?systolic CHF, EF 20% on Echo in Dec 2016. History of meth use. Allergies: Coded Allergies: No Known Allergies (Unverified , 08/25/13) Patient History Past Medical History: CHF Past Surgical History: none Social History: Reports: alcohol use, drug use, smoking Immunizations: UTD Reviewed Nursing Documentation: PMH: Agreed, PSxH: Agreed Nursing Documentation-PMH Hx Cardiac Problems: Yes Hx Cancer: No Hx Gastrointestinal Problems: No Review of Systems All Other Systems: negative except mentioned in HPI Physical Exam Vital Signs Date Time Temp Pulse Resp B/P Pulse Ox O2 Delivery O2 Flow Rate FiO2 02/15/17 08:28 98.1 100 18 130/88 99 Room Air Sp02 EP Interpretation: reviewed, abnormal General Appearance: normal inspection, well appearing, no apparent distress, alert, GCS 15, non-toxic Head: normocephalic, atraumatic Eyes: bilateral eye EOMI, bilateral eye PERRL ENT: normal ENT inspection, hearing grossly normal, normal voice Neck: normal inspection, full range of motion, supple, no bony tend Respiratory: normal inspection, chest non-tender, lungs clear, normal breath sounds, no rhonchi, no respiratory distress, no retraction, no accessory muscle use, no wheezing Cardiovascular #1: regular rate, rhythm, no edema Gastrointestinal: normal inspection, normal bowel sounds, non tender, soft, no guarding, no hernia Genitourinary: no CVA tenderness Musculoskeletal: normal inspection, back normal, normal range of motion, Braulio' s Sign negative, other - no peripheral edema Neurologic: normal inspection, alert, oriented x3, responsive, high school professional III-XII nml as tested, motor strength/tone normal, speech normal Psychiatric: normal inspection, judgement/insight normal, mood/affect normal Skin: normal inspection, normal color, no rash Lymphatic: normal inspection Medical Decision Making Diagnostic Impression: Primary Impression: Medication refill ER Course Medications refilled Tachycardia likely d/t non-compliance with beta-jonathan for HTN Not in acute CHF currently. Vitals show O2 sat 100%, no tachypnea. No rales/ crackles on exam. Lying on stretcher without SOB. Advised to continue avoiding illict drugs, take meds as prescribed F/up with PMD Last Vital Signs Date Time Temp Pulse Resp B/P Pulse Ox O2 Delivery O2 Flow Rate FiO2 02/15/17 08:59 104 18 126/98 100 Room Air 02/15/17 08:30 97.1 Status: improved Disposition: HOME, SELF-CARE Condition: Improved Scripts Furosemide* (LASIX*) 40 Mg Tablet 40 MG ORAL DAILY, #30 TAB Prov: GWEN GU M.D. 02/15/17 Lisinopril (LISINOPRIL*) 5 Mg Tablet 10 MG ORAL Q12HR for 30 Days, #60 TAB Prov: GWEN GU M.D. 02/15/17 Carvedilol (Coreg) 3.125 Mg Tablet 3.125 MG ORAL EVERY 12 HOURS for 30 Days, TAB Prov: GWEN GU M.D. 02/15/17 Referrals: NOT CHOSEN IPA/,REFERRING (PCP) Patient Instructions: Heart Failure, [id number] Additional Instructions: - Please continue to avoid illegal drugs as they can worsen your heart condition - Take lasix - water pill - once daily as prescribed - Take the 2 blood pressure medications - coreg and lisinopril - as prescribed - Return to ER for severe shortness of breath or chest pain despite taking medications - Follow up with your doctor in 1 week GWEN GU M.D. Feb 15, 2017 10:53
== END 2017-02-15 09:00 | disposition home or self-care (01) ==
LOC: EMR 08:49
DX: I10 Essential (primary) hypertension (principal); Z76.0 Encounter for issue of repeat prescription; F17.210 Nicotine dependence, cigarettes, uncomplicated; F19.10 Other psychoactive substance abuse, uncomplicated; I50.9 Heart failure, unspecified
CPT/HCPCS: 99284

== ENCOUNTER 2017-03-01 10:04 | Emergency (ER) | payer SELFPAY ==
[2017-03-01] VITALS (11 sets, daily range): BP systolic 108–140; BP diastolic 73–101
[~2017-03-01] VITALS: Ht 172.7 cm; Wt 90.7 kg
--- NOTE | 2017-03-01 11:10 | Emergency Room Report ---
History of Present Illness General Chief Complaint: Abdominal Pain Source: Patient Present Illness HPI Patient is a 36-year-old male who presented after increased abdominal pain and bloating to his abdomen. Patient stated that he had gradual onset of symptoms. Patient reports having prior history of congestive heart failure as well as pedal edema. Patient stated that he had previously had been taking diuretics. He had gradual onset of symptoms. Patient denied any shortness of breath. He reports having some left upper abdomen pain. The patient stated that he had decreased exercise tolerance. Allergies: Coded Allergies: No Known Allergies (Unverified , 08/25/13) Patient History Past Medical History: see triage record, CHF Reviewed Nursing Documentation: PMH: Agreed, PSxH: Agreed Nursing Documentation-PMH Past Medical History: No History, Except For Hx Cardiac Problems: Yes - CHF Hx Cancer: No Hx Gastrointestinal Problems: No Review of Systems All Other Systems: negative except mentioned in HPI Physical Exam Vital Signs Date Time Temp Pulse Resp B/P Pulse Ox O2 Delivery O2 Flow Rate FiO2 03/01/17 10:32 97.5 112 18 140/101 99 Room Air Sp02 EP Interpretation: reviewed, normal General Appearance: normal inspection, well appearing, no apparent distress, alert, GCS 15 Head: atraumatic ENT: normal ENT inspection, hearing grossly normal, normal voice Neck: normal inspection, full range of motion, supple, no bony tend Respiratory: normal inspection, lungs clear, normal breath sounds, no respiratory distress, no retraction, no wheezing Cardiovascular #1: regular rate, rhythm, no edema Gastrointestinal: normal inspection, normal bowel sounds, non tender, soft, no guarding, no hernia Genitourinary: no CVA tenderness Musculoskeletal: normal inspection, back normal, normal range of motion Neurologic: normal inspection, alert, oriented x3, responsive, machinery engineer III-XII nml as tested, speech normal Psychiatric: normal inspection, judgement/insight normal, mood/affect normal Skin: normal inspection, normal color, no rash Medical Decision Making Diagnostic Impression: Primary Impression: Acute on chronic diastolic (congestive) heart failure ER Course Patient presented for abdominal pain.Patient presented for abdominal pain. Differential diagnoses included ischemic bowel, appendicitis, perforated viscus , abdominal aortic aneurysm, inferior myocardial infarction, viral gastroenteritis Because of complexity of patient's case laboratory testing and imaging studies were ordered.Dr. Cote was contacted for inpatient management due to complexity of medical condition. The patient was given IV Lasix. The patient was on medical supply technician was noted to have sinus tachycardia with a rate of 102 without PVCs or ectopy. EKG interpreted by me showed sinus tachycardia with a rate of [address] changes. Patient noted have some lateral T-wave inversion. Labs Test 03/01/17 11:25 White Blood Count 12.8 K/UL (4.8-10.8) Red Blood Count 5.02 M/UL (4.70-6.10) Hemoglobin 13.7 G/DL (14.2-18.0) Hematocrit 44.8 % (42.0-52.0) Mean Corpuscular Volume 89 FL (80-99) Mean Corpuscular Hemoglobin 27.4 PG (27.0-31.0) Mean Corpuscular Hemoglobin Concent 30.7 G/DL (32.0-36.0) Red Cell Distribution Width 14.7 % (11.6-14.8) Platelet Count 212 K/UL (150-450) Mean Platelet Volume 9.1 FL (6.5-10.1) Neutrophils (%) (Auto) 70.3 % (45.0-75.0) Lymphocytes (%) (Auto) 22.8 % (20.0-45.0) Monocytes (%) (Auto) 5.5 % (1.0-10.0) Eosinophils (%) (Auto) 0.7 % (0.0-3.0) Basophils (%) (Auto) 0.8 % (0.0-2.0) Prothrombin Time 11.8 SEC (9.30-11.50) Prothromb Time International Ratio 1.2 (0.9-1.1) Activated Partial Thromboplast Time 25 SEC (23-33) Urine Color Pale yellow Urine Appearance Clear Urine pH 6.5 (4.5-8.0) Urine Specific [place] 1.005 (1.005-1.035) Urine Protein Negative (NEGATIVE) Urine Glucose (UA) Negative (NEGATIVE) Urine Ketones Negative (NEGATIVE) Urine Occult Blood Negative (NEGATIVE) Urine Nitrite Negative (NEGATIVE) Urine Bilirubin Negative (NEGATIVE) Urine Urobilinogen Normal MG/DL (0.0-1.0) Urine Leukocyte Esterase Negative (NEGATIVE) Sodium Level 139 mEQ/L (135-145) Potassium Level 3.7 mEQ/L (3.4-4.9) Chloride Level 99 mEQ/L (98-107) Carbon Dioxide Level 27 mEQ/L (20-30) Anion Gap 13 (5-15) Blood Urea Nitrogen 15 mg/dL (7-23) Creatinine 1.3 mg/dL (0.7-1.2) Estimat Glomerular Filtration Rate > 60 mL/min (>60) Glucose Level 133 mg/dL (74-106) Calcium Level 8.9 mg/dL (8.6-10.2) Total Bilirubin 1.6 mg/dL (0.0-1.2) Direct Bilirubin 0.4 mg/dL (0.1-0.3) Aspartate Amino Transf (AST/SGOT) 37 U/L (5-40) Alanine Aminotransferase (ALT/SGPT) 42 U/L (3-41) Alkaline Phosphatase 120 U/L (40-129) Troponin I < 0.30 ng/mL (<=0.30) Total Protein 6.7 g/dL (6.6-8.7) Albumin 3.5 g/dL (3.5-5.2) Globulin 3.2 g/dL Albumin/Globulin Ratio 1.0 (1.0-2.7) Lipase 19 U/L (< 60) EKG Diagnostic Results Rate: normal Rhythm: NSR ST Segments: no acute changes Rhythm Strip Diag. Results EP Interpretation: yes Rhythm: NSR, no PVC's, no ectopy Chest X-Ray Diagnostic Results EP Interpretation: Yes Findings: no effusion, no pneumothorax, other - cardiomegaly Number of Views: 1 Last Vital Signs Date Time Temp Pulse Resp B/P Pulse Ox O2 Delivery O2 Flow Rate FiO2 03/01/17 10:47 97.5 112 18 140/101 99 Room Air Status: unchanged Disposition: ADMITTED INPATIENT Condition: Serious Sae Sanchez Mar 01, 2017 11:10
[2017-03-01] MEDS ORDERED: Mylanta II UD 30ml ORAL ONE (11:15)
[2017-03-01 12:03] LABS: APPEARANCE,URINE CLEAR; BASOPHILS % (AUTO) 0.8 % (0.0-2.0); EOSINOPHILS % (AUTO) 0.7 % (0.0-3.0); KETONES,URINE NEGATIVE (NEGATIVE); LEUKOCYTE ESTERASE ,URINE NEGATIVE (NEGATIVE); LYMPHOCYTES % (AUTO) 22.8 % (20.0-45.0); MEAN CORPUSCULAR HEMOGLOBIN 27.4 PG (27.0-31.0); MEAN CORPUSCULAR HGB CONC 30.7 G/DL (32.0-36.0); MEAN CORPUSCULAR VOLUME 89 FL (80-99); MEAN PLATELET VOLUME 9.1 FL (6.5-10.1); MONOCYTES % (AUTO) 5.5 % (1.0-10.0); NEUTROPHILS % (AUTO) 70.3 % (45.0-75.0); NITRITE,URINE NEGATIVE (NEGATIVE); PH,URINE 6.5 (4.5-8.0); PLATELET COUNT 212 K/UL (150-450); PROTEIN,URINE NEGATIVE (NEGATIVE); RED BLOOD COUNT 5.02 M/UL (4.70-6.10); RED CELL DISTRIBUTION WIDTH 14.7 % (11.6-14.8); UROBILINOGEN,URINE NORMAL MG/DL (0.0-1.0); WHITE BLOOD COUNT 12.8 K/UL (4.8-10.8)
[2017-03-01 12:12] LABS: INR 1.2 (0.9-1.1); PROTHROMBIN TIME 11.8 SEC (9.30-11.50)
[2017-03-01 12:14] LABS: ALANINE AMINOTRANSFERASE 42 U/L (3-41); ANION GAP 13 (5-15); ASPARTATE AMINO TRANSFERASE 37 U/L (5-40); CALCIUM 8.9 mg/dL (8.6-10.2); CARBON DIOXIDE 27 mEQ/L (20-30); CHLORIDE 99 mEQ/L (98-107); CREATININE 1.3 mg/dL (0.7-1.2); GLOMERULAR FILTRATION RATE > 60 mL/min (>60); LIPASE 19 U/L (< 60); POTASSIUM 3.7 mEQ/L (3.4-4.9); SODIUM 139 mEQ/L (135-145); TOTAL PROTEIN 6.7 g/dL (6.6-8.7); TROPONIN I < 0.30 ng/mL (<=0.30)
[2017-03-01 12:27] LABS: BILIRUBIN,DIRECT 0.4 mg/dL (0.1-0.3); HEMOLYSIS 1
[2017-03-01] MEDS ORDERED: Miralax 17gm pkt ORAL PRN (14:00)
[2017-03-01] MEDS ORDERED: DuoNeb 0.5-3(2.5)mg/3ml neb HHN PRN (14:00)
--- NOTE | 2017-03-01 16:02 | Diagnostic Imaging Report ---
Indication: SOB Technique: One view of the chest Comparison: 12/30/2016 Findings: Lungs and pleural spaces are currently clear, previously demonstrated interstitial edema has cleared. Heart remains markedly enlarged. Impression: Cardiomegaly. No acute process.
[2017-03-01] MEDS ORDERED: PEPCID COMPLET1 EACH PO (20:23)
[2017-03-01] MEDS ORDERED: VISINE30 ML OP ×2 (20:25)
[2017-03-01] MEDS ORDERED: Lisinopril 10mg tab ORAL SCH (21:00)
[2017-03-01] MEDS ORDERED: Heparin 5000 units/ml inj SUBQ SCH (21:00)
[2017-03-02 00:04] VITALS: BP 110/81
--- NOTE | 2017-03-04 23:10 | Diagnostic Imaging Report ---
APPROVED REPORT CPT Code: 93713 Present Symptoms Comments: Pain BILATERAL: Imaging reveals a patent deep venous system bilaterally. There is no evidence of thrombus within the femoral, popliteal or tibial segments. The greater saphenous veins are also within normal limits. Doppler indicates normal spontaneous flow within these segments.
== END 2017-03-02 00:04 | disposition left against medical advice (07) ==
LOC: EMR 12:25 → UNDOADMIN 13:21 → 4W 13:21 → EDBEDREQ 13:41 → EMR 03-02 00:04
DX: I50.33 Acute on chronic diastolic (congestive) heart failure (principal)
CPT/HCPCS: 36415; 71010; 80053; 81003; 82248; 83690; 84484; 85025; 85610; 85730; 93005; 93970; 96372; 96374; 99284; J1644; J1940; J2405

== ENCOUNTER 2017-03-04 10:06 | Emergency (ER) | payer SELFPAY ==
[~2017-03-04] VITALS: Ht 172.7 cm; Wt 90.7 kg
[~2017-03-04 10:06] MED LIST changes: +PEPCID COMPLET1 EACH PO; +VISINE30 ML OP
[2017-03-04] MEDS ORDERED: Furosemide 40mg tab ORAL ONE (11:15)
[2017-03-04 12:05] VITALS: BP 127/85
[2017-03-04] MEDS ORDERED: LISINOPRIL10 MG ORAL (12:38)
[2017-03-04] MEDS ORDERED: PEPCID COMPLET1 EACH PO (12:38)
[2017-03-04] MEDS ORDERED: COREG3.125 MG ORAL (12:38)
[2017-03-04] MEDS ORDERED: FUROSEMIDE40 MG ORAL (12:38)
[2017-03-04] MEDS ORDERED: ACETAMINOPHEN-1 EAC1 ORAL (12:38)
[2017-03-04 12:53] VITALS: BP 127/85
--- NOTE | 2017-03-04 13:19 | Diagnostic Imaging Report ---
Indications: Chest pain Technique: Portable AP chest Findings: Comparison: And 03/01/17 Inspiratory effort has decreased. Bronchovascular markings have increased in right lung base. Left lung remains clear. Cardiac silhouette remains enlarged. Pulmonary vasculature remains within normal limits. No pleural abnormalities detected. IMPRESSION: Changes in right lung base most likely compressive in nature, due to decreased inspiration. Early pneumonia not excludable. Upright PA and lateral chest radiographs with better inspiratory effort and optimal technique recommended for more complete evaluation. Stable cardiomegaly
--- NOTE | 2017-03-04 13:33 | Diagnostic Imaging Report ---
Indications: Abdominal pain for one week Technique: Continuous helical CT imaging of the abdomen and pelvis was performed with automatic exposure control on a Siemens sensation [address] scanner. Axial, coronal, sagittal images reconstructed at 3 mm slice thickness. No oral or IV contrast was administered per patient's refusal CTDI volume(s): 18 mGy Total DLP: 954 mGy-cm Findings: Comparison: Contrast-enhanced CT abdomen pelvis at 1113 Lack of oral and IV contrast limits evaluation. Gastrointestinal tract remains nondistended throughout. Several foci of high attenuation material in the appendiceal lumen, latter otherwise unremarkable in appearance. No obvious mural thickening, adjacent stranding, extraluminal gas or loculated fluid collections. Mild ascites in the abdomen and pelvis. Apparent mild diffuse mural thickening/edema of gallbladder wall. Unenhanced liver, pancreas, spleen, adrenal glands, kidneys, ureters, urinary bladder, prostate, seminal vesicles, retroperitoneum, mesentery, remainder visualized abdominopelvic anatomy demonstrates no other obvious acute abnormality. Heart size has increased. Lung bases and adjacent pleural surfaces clear. No focal skeletal abnormalities detected. Degenerative changes again noted in lumbar, lower thoracic spine. IMPRESSION: Development of mild ascites, nonspecific Development of gallbladder wall thickening most likely secondary to ascites. Correlate clinically. No other evidence of acute abdominopelvic disease, with limitation as described. Subtle but potentially significant abnormalities may be missed. Repeat CT scan with full oral and IV contrast preparation recommended for more complete evaluation, as clinically indicated Increased heart size may represent worsening cardiomyopathy Degenerative spondylosis
--- NOTE | 2017-03-05 14:00 | Emergency Room Report ---
History of Present Illness General Chief Complaint: Abdominal Pain Source: Patient Present Illness HPI 36-year-old male presents to ED complaining of abdominal pain. Pain and epigastric region, 7/10, dull, nonradiating. No aggravating or relieving factors. Patient states there is fluid in his abdomen and in his legs. Patient states he has history of CHF. Ran out of his Lasix medication. Denies any chest pain shortness of breath. Patient states he was here a few days ago and was supposed to be admitted but left AMA. Denies nausea or vomiting. No aggravating or relieving factors. Denies any other associated symptom Allergies: Coded Allergies: No Known Allergies (Unverified , 08/25/13) Patient History Past Medical History: CHF Past Surgical History: none Pertinent Family History: none Social History: Denies: alcohol use, drug use, smoking Immunizations: UTD Reviewed Nursing Documentation: PMH: Agreed, PSxH: Agreed Nursing Documentation-PMH Hx Cardiac Problems: Yes - CHF Hx Cancer: No Hx Gastrointestinal Problems: No Review of Systems All Other Systems: negative except mentioned in HPI Physical Exam Vital Signs Date Time Temp Pulse Resp B/P Pulse Ox O2 Delivery O2 Flow Rate FiO2 03/04/17 10:14 97.2 116 20 119/78 96 Room Air Sp02 EP Interpretation: reviewed, normal General Appearance: no apparent distress, alert, GCS 15, non-toxic, obese Head: normocephalic Eyes: bilateral eye PERRL, bilateral eye normal inspection ENT: normal ENT inspection Neck: normal inspection Respiratory: chest non-tender, lungs clear, normal breath sounds, speaking full sentences Cardiovascular #1: regular rate, rhythm, no edema Gastrointestinal: normal bowel sounds, non tender, soft, no guarding, no rebound, tenderness - epigastric Rectal: deferred Genitourinary: no CVA tenderness Musculoskeletal: swelling - 2 + pitting edema b/l LE Neurologic: alert, oriented x3, responsive, motor strength/tone normal, sensory intact, speech normal Psychiatric: normal inspection Skin: normal inspection Lymphatic: normal inspection Medical Decision Making Diagnostic Impression: Primary Impression: CHF (congestive heart failure) Qualified Codes: I50.9 - Heart failure, unspecified Additional Impression: Acute gastritis ER Course Hospital Course 36-year-old M presents to ED with abdominal pain Differential diagnosis includes-appendicitis, cholecystitis, small bowel obstruction, gastritis, Clinical course Patient placed on stretcher. After initial history and physical I ordered labs , IV fluids, pain medications and CT scan Patient declined IV access or blood draw stating that he was here a few days ago. I reviewed labs from a few days ago and they were unremarkable CT scan shows no acute pathology, some fluid suggestive of CHF Patient showing no signs of distress. Lungs clear. No in any acute exacerbation. No reason for admission at this time. Patient is not compliant with his medications Given dose of Lasix here in ED per will be discharged on his home medications Is documented history of gastritis. Patient given Zantac care in ED with symptoms improved I feel this is a highly complex case requiring extensive working including EKG/ Rhythm strip, Xray/CT/US, Blood/urine lab work, repeat exams while in ED, and administration of strong opiates/narcotics for pain control, admission to hospital or close patient follow up. Diagnosis - CHF, gastritis Stable and discharged to home. Followup with PMD. Return to ED if symptoms recur or worsen CT/MRI/US Diagnostic Results CT/MRI/US Diagnostic Results : Imaging Test Ordered: CT A/P Impression no acute process. fluid in abdomen Last Vital Signs Date Time Temp Pulse Resp B/P Pulse Ox O2 Delivery O2 Flow Rate FiO2 03/04/17 12:53 97.2 111 20 127/85 95 Room Air Status: improved Disposition: HOME, SELF-CARE Condition: Stable Scripts Acetaminophen With Codeine (T#3) (TYLENOL #3 TAB*) Y Tab 1 TAB ORAL Q8H Y for For Pain, #20 TAB Prov: SUMIT SHELLEY M.D. 03/04/17 Lisinopril* (LISINOPRIL*) 10 Mg Tablet 10 MG ORAL DAILY, #30 TAB Prov: SUMIT SHELLEY M.D. 03/04/17 Carvedilol (Coreg) 3.125 Mg Tablet 3.125 MG ORAL EVERY 12 HOURS for 30 Days, TAB Prov: SUMIT SHELLEY M.D. 03/04/17 Famotidine/Ca Carb/Mag Hydrox (PEPCID COMPLETE TABLET CHEW) 1 Each Tab.chew 1 EACH PO DAILY, #30 TAB Prov: SUMIT SHELLEY M.D. 03/04/17 Furosemide* (LASIX*) 40 Mg Tablet 40 MG ORAL DAILY, #30 TAB Prov: SUMIT SHELLEY M.D. 03/04/17 Patient Instructions: Edema SUMIT SHELLEY M.D. Mar 05, 2017 14:00
== END 2017-03-04 12:54 | disposition home or self-care (01) ==
LOC: EMR 10:45
DX: I50.9 Heart failure, unspecified (principal); K29.00 Acute gastritis without bleeding; M47.816 Spondylosis without myelopathy or radiculopathy, lumbar region; I51.7 Cardiomegaly
CPT/HCPCS: 71010; 74176; 99284

== ENCOUNTER 2017-04-12 07:07 | Emergency (ER) | payer SELFPAY ==
[~2017-04-12] VITALS: Ht 172.7 cm; Wt 90.7 kg
[~2017-04-12 07:07] MED LIST changes: +LISINOPRIL10 MG ORAL
[2017-04-12] MEDS ORDERED: Ketorolac 30mg Inj IV ONE (07:30)
--- NOTE | 2017-04-12 07:39 | Emergency Room Report ---
History of Present Illness General Chief Complaint: Abdominal Pain Source: Patient Present Illness HPI The patient presents with total body pain. He also has dyspnea and fluid retention. The pain is worse in his left knee. It's causing him to have difficulty walking. Also has fairly severe dyspnea on exertion. He denies any fevers. The pain is from his head down to his feet. Did not take any medication. The patient was admitted to the hospital for and diagnosed with congestive heart failure. He's not sure what the cause was. He was hospitalized for 2 days. Denies any chest pain. He states that his heart is working at 20%. He was supposed to follow up but did not. He denies dx of gout. No nausea vomiting or diarrhea. He feels generalized weakness. He is hungry. He denies drugs. However - see below. Last discharge diagnoses: 1. Acute systolic congestive heart failure. 2. Polysubstance abuse. 3. Cardiomyopathy. 4. Mitral regurgitation. 5. Pulmonary hypertension. 6. Amphetamine and marijuana use. 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 Nursing Documentation: PMH: Agreed, PSxH: Agreed Nursing Documentation-PMH Past Medical History: No History, Except For Hx Cardiac Problems: Yes - CHF Hx Cancer: No Hx Gastrointestinal Problems: No Review of Systems All Other Systems: negative except mentioned in HPI Physical Exam Vital Signs Date Time Temp Pulse Resp B/P Pulse Ox O2 Delivery O2 Flow Rate FiO2 04/12/17 07:13 97.9 112 18 117/97 97 Room Air Sp02 EP Interpretation: reviewed, normal General Appearance: well appearing, no apparent distress, GCS 15 Head: normocephalic Eyes: bilateral eye PERRL, bilateral eye normal inspection ENT: moist mucus membranes - poor dentition Neck: supple Respiratory: lungs clear, normal breath sounds Cardiovascular #1: no JVD, tachycardia, edema - 1+ Cardiovascular #2: 2+ radial (R) Gastrointestinal: normal inspection, normal bowel sounds, non tender, no mass, non-distended, overweight Musculoskeletal: gait/station normal, normal range of motion, no calf tenderness, swelling - L knee effusion, not hot or erythema Neurologic: alert, oriented x3, grossly normal Psychiatric: mood/affect normal, no suicidal/homicidal ideation Skin: normal inspection, warm/dry Medical Decision Making Diagnostic Impression: Primary Impression: Gout Qualified Codes: M10.262 - Drug-induced gout, left knee Additional Impressions: Heart failure Qualified Codes: I50.42 - Chronic combined systolic (congestive) and diastolic (congestive) heart failure Amphetamine abuse ER Course The patient presents with total body pain and dyspnea on exertion. He also has left knee pain. The fact he is taking Lasix makes gout a possibility. Denies any recent trauma. Differential includes acute myocardial infarction, congestive heart failure, bronchitis, viral syndrome amongst others. Evaluation will be with EKG, chest x-ray and labs. The patient would be treated with Toradol and colchicine. Labs significant for elevated uric acid and BNP. CXR without significant pulmonary edema. + amphetamine Improved with treatment. No emergent condition requiring hospitalization. Discussed with patient need to return to 12 step program and to obtain PMD. Patient stable for outpatient observation and treatment. Laboratory Tests Test 04/12/17 07:24 White Blood Count 12.2 K/UL (4.8-10.8) H Red Blood Count 5.11 M/UL (4.70-6.10) Hemoglobin 14.1 G/DL (14.2-18.0) L Hematocrit 45.8 % (42.0-52.0) Mean Corpuscular Volume 90 FL (80-99) Mean Corpuscular Hemoglobin 27.6 PG (27.0-31.0) Mean Corpuscular Hemoglobin Concent 30.8 G/DL (32.0-36.0) L Red Cell Distribution Width 14.9 % (11.6-14.8) H Platelet Count 183 K/UL (150-450) Mean Platelet Volume 10.5 FL (6.5-10.1) H Neutrophils (%) (Auto) 61.8 % (45.0-75.0) Lymphocytes (%) (Auto) 29.5 % (20.0-45.0) Monocytes (%) (Auto) 6.4 % (1.0-10.0) Eosinophils (%) (Auto) 1.4 % (0.0-3.0) Basophils (%) (Auto) 0.9 % (0.0-2.0) Prothrombin Time 11.3 SEC (9.30-11.50) Prothrombin Time INR 1.1 (0.9-1.1) PTT 22 SEC (23-33) L Sodium Level 138 mEQ/L (135-145) Potassium Level 4.0 mEQ/L (3.4-4.9) Chloride Level 98 mEQ/L (98-107) Carbon Dioxide Level 24 mEQ/L (20-30) Anion Gap 16 (5-15) H Blood Urea Nitrogen 20 mg/dL (7-23) Creatinine 1.4 mg/dL (0.7-1.2) H Estimate Glomerular Filtration Rate > 60 mL/min (>60) Glucose Level 95 mg/dL (74-106) Uric Acid 9.4 mg/dL (3.0-7.5) H Calcium Level 9.2 mg/dL (8.6-10.2) Total Bilirubin 1.1 mg/dL (0.0-1.2) Direct Bilirubin 0.3 mg/dL (0.1-0.3) Aspartate Amino Transferase (AST) 37 U/L (5-40) Alanine Aminotransferase (ALT) 38 U/L (3-41) Alkaline Phosphatase 119 U/L (40-129) Total Creatine Kinase 131 U/L (38-174) Troponin I < 0.30 ng/mL (<=0.30) Pro-B-Type Natriuretic Peptide 2904 pg/mL (0-125) H Total Protein 7.0 g/dL (6.6-8.7) Albumin 3.7 g/dL (3.5-5.2) Globulin 3.3 g/dL Albumin/Globulin Ratio 1.1 (1.0-2.7) Urine Opiates Screen Negative (NEGATIVE) Urine Barbiturates Screen Negative (NEGATIVE) Phencyclidine (PCP) Screen Negative (NEGATIVE) Urine Amphetamines Screen Positive (NEGATIVE) H Urine Benzodiazepines Screen Negative (NEGATIVE) Urine Cocaine Screen Negative (NEGATIVE) Urine Marijuana (THC) Screen Positive (NEGATIVE) H EKG Diagnostic Results Rate: tachycardiac ST Segments: no acute changes Rhythm Strip Diag. Results EP Interpretation: yes Rhythm: no PVC's, no ectopy, other - ST 104 Chest X-Ray Diagnostic Results Findings: no consolidation, no effusion, no pneumothorax, other - inc cor Last Vital Signs Date Time Temp Pulse Resp B/P Pulse Ox O2 Delivery O2 Flow Rate FiO2 04/12/17 12:19 97.8 100 20 112/86 100 Room Air Status: improved Disposition: HOME, SELF-CARE Condition: Improved Scripts Tramadol Hcl* (ULTRAM*) 50 Mg Tablet 50 MG ORAL Q6H Y for For Pain, #10 TAB 0 Refills Prov: Roel Alejo M.D. 04/12/17 Indomethacin (Indocin) 75 Mg Capsule.er 75 MG ORAL Q8HR, #20 CAP Prov: Roel Alejo M.D. 04/12/17 Colchicine (Colchicine) 0.6 Mg Capsule 0.6 MG PO Q6HR Y for gout/joint pain, #20 CAP Prov: Roel Alejo M.D. 04/12/17 Roel Alejo M.D. April 12, 2017 07:38
[2017-04-12 08:09] LABS: BASOPHILS % (AUTO) 0.9 % (0.0-2.0); EOSINOPHILS % (AUTO) 1.4 % (0.0-3.0); LYMPHOCYTES % (AUTO) 29.5 % (20.0-45.0); MEAN CORPUSCULAR HEMOGLOBIN 27.6 PG (27.0-31.0); MEAN CORPUSCULAR HGB CONC 30.8 G/DL (32.0-36.0); MEAN CORPUSCULAR VOLUME 90 FL (80-99); MEAN PLATELET VOLUME 10.5 FL (6.5-10.1); MONOCYTES % (AUTO) 6.4 % (1.0-10.0); NEUTROPHILS % (AUTO) 61.8 % (45.0-75.0); PLATELET COUNT 183 K/UL (150-450); RED BLOOD COUNT 5.11 M/UL (4.70-6.10); RED CELL DISTRIBUTION WIDTH 14.9 % (11.6-14.8); WHITE BLOOD COUNT 12.2 K/UL (4.8-10.8)
[2017-04-12 08:11] LABS: INR 1.1 (0.9-1.1); PROTHROMBIN TIME 11.3 SEC (9.30-11.50)
[2017-04-12 08:16] LABS: TROPONIN I < 0.30 ng/mL (<=0.30)
[2017-04-12 08:19] LABS: ALANINE AMINOTRANSFERASE 38 U/L (3-41); ALBUMIN/GLOBULIN RATIO 1.1 (1.0-2.7); ANION GAP 16 (5-15); ASPARTATE AMINO TRANSFERASE 37 U/L (5-40); CALCIUM 9.2 mg/dL (8.6-10.2); CARBON DIOXIDE 24 mEQ/L (20-30); CHLORIDE 98 mEQ/L (98-107); CREATININE 1.4 mg/dL (0.7-1.2); GLOMERULAR FILTRATION RATE > 60 mL/min (>60); HEMOLYSIS 19; SODIUM 138 mEQ/L (135-145); URIC ACID 9.4 mg/dL (3.0-7.5)
[2017-04-12 08:22] VITALS: BP 132/95
[2017-04-12 08:40] LABS: BILIRUBIN,DIRECT 0.3 mg/dL (0.1-0.3)
[2017-04-12 09:42] VITALS: BP 110/89
--- NOTE | 2017-04-12 10:15 | Diagnostic Imaging Report ---
Indication: Dyspnea Comparison: 03/04/17 A single view chest radiograph was obtained. Findings: Mild interstitial edema suspected. Heart is enlarged. Bones are unremarkable. Impression: Mild interstitial edema suspected. No change.
[2017-04-12] MEDS ORDERED: COLCHICINE0.6 M1 PO (11:13)
[2017-04-12] MEDS ORDERED: TRAMADOL HCL50 MG ORAL (11:13)
[2017-04-12] MEDS ORDERED: INDOCIN75 MG ORAL (11:13)
[2017-04-12 12:10] VITALS: BP 112/86
[2017-04-12 12:19] VITALS: BP 112/86
--- NOTE | 2017-04-13 07:51 | Cardiology Report ---
APPROVED REPORT EKG Measurement Heart [id number] Sinus tachycardia Cannot rule out Anterior infarct, age undetermined Abnormal ECG
== END 2017-04-12 12:21 | disposition home or self-care (01) ==
LOC: EMR 07:56
DX: M10.9 Gout, unspecified (principal); I50.42 Chronic combined systolic (congestive) and diastolic (congestive) heart failure; F17.200 Nicotine dependence, unspecified, uncomplicated; F15.10 Other stimulant abuse, uncomplicated; M25.562 Pain in left knee; Z79.899 Other long term (current) drug therapy
CPT/HCPCS: 36415; 71010; 80053; 80300; 82248; 82550; 83880; 84484; 84550; 85025; 85610; 85730; 93005; 96374; 99284; J1885

== ENCOUNTER 2017-04-23 03:58 | Inpatient (IN) | payer SELFPAY ==
[~2017-04-23] VITALS: Ht 172.7 cm; Wt 108.0 kg
[2017-04-23] VITALS (8 sets, daily range): BP systolic 106–130; BP diastolic 74–96
[~2017-04-23 03:58] MED LIST changes: +COLCHICINE0.6 M1 PO; +INDOCIN75 MG ORAL; +TRAMADOL HCL50 MG ORAL
--- NOTE | 2017-04-23 04:37 | Emergency Room Report ---
History of Present Illness General Chief Complaint: Dyspnea/Respdistress Source: Patient, Family Member, Medical Record Present Illness HPI This is a 37-year-old male with a history of cardiomyopathy with ejection fraction around 20%. This is probably do to drug abuse. He denies amphetamine use for at least a week. He presents with chief complaint of abdominal pain. He checked in initially with shortness of breath as her chief complaint. He is out of his medication for a week now. No fever or chills. No nausea no vomiting. Pain is 10 out of 10. Also felt shortness of breath. Worse with exertion. No chest pain. Similar symptom in the past the Allergies: Coded Allergies: No Known Allergies (Unverified , 08/25/13) Patient History Past Medical History: see triage record, old chart reviewed, CHF Past Surgical History: other Pertinent Family History: none Social History: Reports: drug use, smoking Immunizations: other Reviewed Nursing Documentation: PMH: Agreed, PSxH: Agreed Nursing Documentation-PMH Hx Cardiac Problems: Yes - CHF Hx Cancer: No Hx Gastrointestinal Problems: No Review of Systems Eye: Denies: blurred vision, eye pain ENT: Denies: ear pain, nose congestion, throat swelling Respiratory: Reports: shortness of breath, Denies: cough Cardiovascular: Denies: chest pain, palpitations Gastrointestinal: Reports: abdominal pain, Denies: diarrhea, nausea, vomiting Musculoskeletal: Denies: back pain, joint pain Skin: Denies: rash Neurological: Denies: headache, numbness Endocrine: Denies: increased thirst, increased urine Hematologic/Lymphatic: Denies: easy bruising All Other Systems: negative except mentioned in HPI Physical Exam Vital Signs Date Time Temp Pulse Resp B/P Pulse Ox O2 Delivery O2 Flow Rate FiO2 04/23/17 04:04 97.2 101 16 120/80 98 Room Air vitals normal Sp02 EP Interpretation: reviewed, normal General Appearance: well appearing, no apparent distress, alert Head: normocephalic, atraumatic Eyes: bilateral eye EOMI, bilateral eye PERRL ENT: hearing grossly normal, normal pharynx Neck: full range of motion, supple, no meningismus Respiratory: chest non-tender, lungs clear, normal breath sounds Cardiovascular #1: regular rate, rhythm, no murmur Gastrointestinal: normal bowel sounds, non tender, no mass, no organomegaly, no bruit, non-distended Musculoskeletal: back normal, gait/station normal, normal range of motion, swelling - 1+ Neurologic: alert, oriented x3 Psychiatric: mood/affect normal Skin: warm/dry Medical Decision Making Diagnostic Impression: Primary Impression: CHF (congestive heart failure) Qualified Codes: I50.9 - Heart failure, unspecified Additional Impressions: Amphetamine abuse Noncompliance ER Course Patient present with generalized anasarca and CHF. He's not compliant with his medication. He diuresed most 2 L after IV Lasix. Still positive for methamphetamine. No evidence of ACS, PE, pneumonia to name a few. He would benefit from admission for continue with IV Lasix and further management of his medication. He may benefit from social service consult. Based on his ejection fraction around 20%, he may benefit from AICD. If he continued down this path, prognosis is poor and is likely. Laboratory Tests Test 04/23/17 04:37 White Blood Count 13.1 K/UL (4.8-10.8) H Red Blood Count 4.71 M/UL (4.70-6.10) Hemoglobin 13.0 G/DL (14.2-18.0) L Hematocrit 41.4 % (42.0-52.0) L Mean Corpuscular Volume 88 FL (80-99) Mean Corpuscular Hemoglobin 27.6 PG (27.0-31.0) Mean Corpuscular Hemoglobin Concent 31.5 G/DL (32.0-36.0) L Red Cell Distribution Width 14.7 % (11.6-14.8) Platelet Count 235 K/UL (150-450) Mean Platelet Volume 9.0 FL (6.5-10.1) Neutrophils (%) (Auto) 60.3 % (45.0-75.0) Lymphocytes (%) (Auto) 31.1 % (20.0-45.0) Monocytes (%) (Auto) 6.5 % (1.0-10.0) Eosinophils (%) (Auto) 1.3 % (0.0-3.0) Basophils (%) (Auto) 0.9 % (0.0-2.0) Sodium Level 136 mEQ/L (135-145) Potassium Level 4.1 mEQ/L (3.4-4.9) Chloride Level 98 mEQ/L (98-107) Carbon Dioxide Level 24 mEQ/L (20-30) Anion Gap 14 (5-15) Blood Urea Nitrogen 20 mg/dL (7-23) Creatinine 1.3 mg/dL (0.7-1.2) H Estimat Glomerular Filtration Rate > 60 mL/min (>60) Glucose Level 118 mg/dL (74-106) H Calcium Level 8.7 mg/dL (8.6-10.2) Total Bilirubin 1.2 mg/dL (0.0-1.2) Direct Bilirubin Pending Aspartate Amino Transf (AST/SGOT) 41 U/L (5-40) H Alanine Aminotransferase (ALT/SGPT) 38 U/L (3-41) Alkaline Phosphatase 138 U/L (40-129) H Total Creatine Kinase 157 U/L (38-174) Creatine Kinase MB 3.0 ng/mL (< 6.7) Creatine Kinase MB Relative Index 1.9 Troponin I < 0.30 ng/mL (<=0.30) Pro-B-Type Natriuretic Peptide 2025 pg/mL (0-125) H Total Protein 6.4 g/dL (6.6-8.7) L Albumin 3.4 g/dL (3.5-5.2) L Globulin 3.0 g/dL Albumin/Globulin Ratio 1.1 (1.0-2.7) Urine Opiates Screen Negative (NEGATIVE) Urine Barbiturates Screen Negative (NEGATIVE) Phencyclidine (PCP) Screen Negative (NEGATIVE) Urine Amphetamines Screen Positive (NEGATIVE) H Urine Benzodiazepines Screen Negative (NEGATIVE) Urine Cocaine Screen Negative (NEGATIVE) Urine Marijuana (THC) Screen Positive (NEGATIVE) H Lab Results Impression labs with elevated BNP EKG Diagnostic Results Rate: normal Rhythm: other - Nonspecific ST changes ST Segments: no acute changes Rhythm Strip Diag. Results EP Interpretation: yes Rate: 90 Rhythm: NSR, no PVC's, no ectopy Chest X-Ray Diagnostic Results EP Interpretation: Yes Findings: no consolidation, no effusion, no pneumothorax, other - Cardiomegaly with vascular congestion Number of Views: 1 Last Vital Signs Date Time Temp Pulse Resp B/P Pulse Ox O2 Delivery O2 Flow Rate FiO2 04/23/17 04:06 98 16 Room Air 04/23/17 04:05 97.2 130/96 98 Status: improved Disposition: ADMITTED INPATIENT Condition: Serious Referrals: NOT CHOSEN ROGERS/,REFERRING (PCP) KARISSA DOUGHERTY M.D. Apr 23, 2017 04:37
[2017-04-23 04:52] LABS: BASOPHILS % (AUTO) 0.9 % (0.0-2.0); EOSINOPHILS % (AUTO) 1.3 % (0.0-3.0); LYMPHOCYTES % (AUTO) 31.1 % (20.0-45.0); MEAN CORPUSCULAR HEMOGLOBIN 27.6 PG (27.0-31.0); MEAN CORPUSCULAR HGB CONC 31.5 G/DL (32.0-36.0); MEAN CORPUSCULAR VOLUME 88 FL (80-99); MONOCYTES % (AUTO) 6.5 % (1.0-10.0); NEUTROPHILS % (AUTO) 60.3 % (45.0-75.0); PLATELET COUNT 235 K/UL (150-450); RED BLOOD COUNT 4.71 M/UL (4.70-6.10); RED CELL DISTRIBUTION WIDTH 14.7 % (11.6-14.8); WHITE BLOOD COUNT 13.1 K/UL (4.8-10.8)
[2017-04-23 05:08] LABS: TROPONIN I < 0.30 ng/mL (<=0.30)
[2017-04-23 05:09] LABS: ALANINE AMINOTRANSFERASE 38 U/L (3-41); ALBUMIN/GLOBULIN RATIO 1.1 (1.0-2.7); ANION GAP 14 (5-15); ASPARTATE AMINO TRANSFERASE 41 U/L (5-40); CALCIUM 8.7 mg/dL (8.6-10.2); CARBON DIOXIDE 24 mEQ/L (20-30); CHLORIDE 98 mEQ/L (98-107); CREATININE 1.3 mg/dL (0.7-1.2); GLOMERULAR FILTRATION RATE > 60 mL/min (>60); HEMOLYSIS 7; POTASSIUM 4.1 mEQ/L (3.4-4.9); SODIUM 136 mEQ/L (135-145); TOTAL PROTEIN 6.4 g/dL (6.6-8.7)
[2017-04-23 05:30] LABS: BILIRUBIN,DIRECT 0.4 mg/dL (0.1-0.3)
[2017-04-23] MEDS ORDERED: Nitroglycerin Subl 0.4mg tab (Bottle Of 25) SL PRN (07:15)
[2017-04-23] MEDS ORDERED: Ketorolac 30mg Inj IV PRN (07:15)
[2017-04-23] MEDS ORDERED: Miralax 17gm pkt ORAL PRN (07:15)
[2017-04-23] MEDS ORDERED: Enalaprilat 2.5mg/2ml Inj IV PRN (07:15)
[2017-04-23] MEDS ORDERED: DuoNeb 0.5-3(2.5)mg/3ml neb HHN PRN (07:15)
[2017-04-23] MEDS ORDERED: Diltiazem 25mg/5ml IV PRN (07:15)
[2017-04-23] MEDS: Aspirin Baby 81mg ORAL SCH (08:31)
[2017-04-23] MEDS: Lisinopril 10mg tab ORAL SCH ×2 (08:33→20:52)
[2017-04-23] MEDS: Heparin 5000 units/ml inj SUBQ SCH ×2 (08:34→21:03)
[2017-04-23] MEDS: Morphine Sulfate 2mg/ml Inj IVP PRN (08:36)
[2017-04-23] MEDS: Indomethacin 75 MG CAPSULE.ER ORAL SCH ×2 (10:19→21:00)
--- NOTE | 2017-04-23 11:02 | Diagnostic Imaging Report ---
Indication: SOB Technique: One view of the chest Comparison: 04/12/2017 Findings: The heart remains enlarged. There is mild interstitial congestion. The pleural spaces are clear. No definite airspace consolidation Impression: Cardiomegaly Mild interstitial congestion This agrees with the preliminary interpretation provided by the emergency room physician
--- NOTE | 2017-04-23 13:35 | History and Physical ---
History of Present Illness General Date patient seen: Apr 23, 2017 Reason for Hospitalization: Dyspnea/Respdistress Present Illness HPI 37-year-old male with a history of cardiomyopathy with ejection fraction around 20% presented with chief complaint of abdominal pain. He checked in initially with shortness of breath as her chief complaint. He is out of his medication for a week now. pt was diagnosed to have pulmonary edema and admitted for further evaluation. Allergies: Coded Allergies: No Known Allergies (Unverified , 08/25/13) Medication History Scheduled Carvedilol (Coreg), 3.125 MG ORAL EVERY 12 HOURS Carvedilol (Coreg), 3.125 MG ORAL EVERY 12 HOURS Famotidine/Ca Carb/Mag Hydrox (Pepcid Complete Tablet Chew), 1 EACH PO QD/PRN, ( Reported) Famotidine/Ca Carb/Mag Hydrox (Pepcid Complete Tablet Chew), 1 EACH PO DAILY Furosemide* (Lasix*), 40 MG ORAL DAILY Furosemide* (Lasix*), 40 MG ORAL DAILY Indomethacin (Indocin), 75 MG ORAL Q8HR Lisinopril (Lisinopril*), 10 MG ORAL Q12HR Lisinopril* (Lisinopril*), 10 MG ORAL DAILY Scheduled PRN Acetaminophen With Codeine (T#3) (Tylenol #3 Tab*), 1 TAB ORAL Q8H PRN for For Pain Colchicine (Colchicine), 0.6 MG PO Q6HR PRN for gout/joint pain Tramadol Hcl* (Ultram*), 50 MG ORAL Q6H PRN for For Pain Miscellaneous Medications Tetrahydrozoline HCl (Visine), 30 ML OP, (Reported) Patient History Healthcare decision maker pt A&Ox4 Resuscitation status Advanced Directive on File Past Medical/Surgical History Past Medical/Surgical History: (1) Amphetamine abuse (2) CHF (congestive heart failure) (3) Gout Review of Systems Respiratory: Reports: shortness of breath All Other Systems: negative except mentioned in HPI Physical Exam General Appearance: WD/WN Lines, tubes and drains: peripheral, central line HEENT: normocephalic, atraumatic Neck: non-tender, normal alignment Respiratory/Chest: chest wall non-tender, lungs clear Breasts: no masses Cardiovascular/Chest: normal rate Abdomen: normal bowel sounds Last 24 Hour Vital Signs Date Time Temp Pulse Resp B/P Pulse Ox O2 Delivery O2 Flow Rate FiO2 04/23/17 12:00 99 04/23/17 11:21 97.7 99 20 121/89 99 Room Air 04/23/17 08:33 104/74 04/23/17 08:32 92 104/74 04/23/17 08:00 94 04/23/17 07:46 96.4 96 20 109/74 98 Room Air 04/23/17 06:52 97.5 98 23 124/75 98 Room Air 04/23/17 06:52 97.5 98 23 124/75 98 Room Air 04/23/17 06:05 97.5 97 20 120/80 97 Room Air 04/23/17 04:06 98 16 Room Air 04/23/17 04:05 97.2 98 16 130/96 98 Room Air 04/23/17 04:04 97.2 101 16 120/80 98 Room Air Intake and Output 04/22/17 04/23/17 19:00 07:00 Output Total 2700 ml Balance -2700 ml Output Urine Total 2700 ml # Voids 1 Laboratory Tests Test 04/23/17 04:37 White Blood Count 13.1 K/UL (4.8-10.8) H Red Blood Count 4.71 M/UL (4.70-6.10) Hemoglobin 13.0 G/DL (14.2-18.0) L Hematocrit 41.4 % (42.0-52.0) L Mean Corpuscular Volume 88 FL (80-99) Mean Corpuscular Hemoglobin 27.6 PG (27.0-31.0) Mean Corpuscular Hemoglobin Concent 31.5 G/DL (32.0-36.0) L Red Cell Distribution Width 14.7 % (11.6-14.8) Platelet Count 235 K/UL (150-450) Mean Platelet Volume 9.0 FL (6.5-10.1) Neutrophils (%) (Auto) 60.3 % (45.0-75.0) Lymphocytes (%) (Auto) 31.1 % (20.0-45.0) Monocytes (%) (Auto) 6.5 % (1.0-10.0) Eosinophils (%) (Auto) 1.3 % (0.0-3.0) Basophils (%) (Auto) 0.9 % (0.0-2.0) Sodium Level 136 mEQ/L (135-145) Potassium Level 4.1 mEQ/L (3.4-4.9) Chloride Level 98 mEQ/L (98-107) Carbon Dioxide Level 24 mEQ/L (20-30) Anion Gap 14 (5-15) Blood Urea Nitrogen 20 mg/dL (7-23) Creatinine 1.3 mg/dL (0.7-1.2) H Estimat Glomerular Filtration Rate > 60 mL/min (>60) Glucose Level 118 mg/dL (74-106) H Calcium Level 8.7 mg/dL (8.6-10.2) Total Bilirubin 1.2 mg/dL (0.0-1.2) Direct Bilirubin 0.4 mg/dL (0.1-0.3) H Aspartate Amino Transf (AST/SGOT) 41 U/L (5-40) H Alanine Aminotransferase (ALT/SGPT) 38 U/L (3-41) Alkaline Phosphatase 138 U/L (40-129) H Total Creatine Kinase 157 U/L (38-174) Creatine Kinase MB 3.0 ng/mL (< 6.7) Creatine Kinase MB Relative Index 1.9 Troponin I < 0.30 ng/mL (<=0.30) Pro-B-Type Natriuretic Peptide 2025 pg/mL (0-125) H Total Protein 6.4 g/dL (6.6-8.7) L Albumin 3.4 g/dL (3.5-5.2) L Globulin 3.0 g/dL Albumin/Globulin Ratio 1.1 (1.0-2.7) Urine Opiates Screen Negative (NEGATIVE) Urine Barbiturates Screen Negative (NEGATIVE) Phencyclidine (PCP) Screen Negative (NEGATIVE) Urine Amphetamines Screen Positive (NEGATIVE) H Urine Benzodiazepines Screen Negative (NEGATIVE) Urine Cocaine Screen Negative (NEGATIVE) Urine Marijuana (THC) Screen Positive (NEGATIVE) H Height (Feet): 5 Height (Inches): 8.00 Weight (Pounds): 200 Medications Current Medications Medications (Trade) Dose Ordered Sig/Leonora Route PRN Reason Start Time Stop Time Status Last Admin Dose Admin Acetaminophen (Tylenol) 650 mg Q4H PRN ORAL T>100.5 04/23/17 07:15 05/23/17 07:14 Albuterol/ Ipratropium (DuoNeb 0.5-3(2.5)mg/3ml) 3 ml Q4H PRN HHN Shortness of Breath 04/23/17 07:15 04/28/17 07:14 Aspirin (ASA) 162 mg DAILY ORAL 04/23/17 09:00 05/23/17 08:59 04/23/17 08:31 Carvedilol (Coreg) 3.125 mg EVERY 12 HOURS ORAL 04/23/17 09:00 05/23/17 08:59 04/23/17 08:32 Diltiazem HCl (Cardizem) 10 mg EVERY HOUR PRN IV HR > 120 bpm 04/23/17 07:15 05/23/17 07:14 Enalaprilat (Vasotec) 2.5 mg Q6H PRN IV sbp > 160 mmHg 04/23/17 07:15 05/23/17 07:14 Heparin Sodium (Porcine) (Heparin 5000 units/ml) 5,000 units EVERY 12 HOURS SUBQ 04/23/17 09:00 05/23/17 08:59 04/23/17 08:34 Indomethacin (Indocin) 75 mg Q12HR ORAL 04/23/17 10:30 05/23/17 10:29 04/23/17 10:19 Lisinopril (Zestril) 10 mg Q12HR ORAL 04/23/17 09:00 05/23/17 08:59 04/23/17 08:33 Morphine Sulfate (Morphine Sulfate) 2 mg Q4H PRN IVP Severe Pain (Pain Scale 7-10) 04/23/17 07:15 04/30/17 07:14 04/23/17 08:36 Nitroglycerin (Ntg) 0.4 mg Q5MIN X 3 DOSES PRN SL Prn Chest Pain 04/23/17 07:15 05/23/17 07:14 Ondansetron HCl (Zofran) 4 mg Q6H PRN IVP Nausea & Vomiting 04/23/17 07:15 05/23/17 07:14 Polyethylene Glycol (Miralax) 17 gm DAILYPRN PRN ORAL Constipation 04/23/17 07:15 05/23/17 07:14 Temazepam (Restoril) 15 mg HSPRN PRN ORAL Insomnia 04/23/17 21:00 04/30/17 20:59 Tramadol HCl (Ultram) 50 mg Q6H PRN ORAL Moderate Pain (Pain Scale 4-6) 04/23/17 07:15 04/30/17 07:14 Assessment/Plan Problem List: (1) Acute respiratory failure ICD Codes: J96.00 - Acute respiratory failure, unspecified whether with hypoxia or hypercapnia SNOMED: 07544826 (2) Amphetamine abuse ICD Codes: F15.10 - Other stimulant abuse, uncomplicated SNOMED: 13541103 (3) Noncompliance ICD Codes: Z91.19 - Patient's noncompliance with other medical treatment and regimen SNOMED: 8164772 (4) CHF (congestive heart failure) ICD Codes: I50.9 - Heart failure, unspecified SNOMED: 43205006 Qualifiers: Qualified Codes: I50.9 - Heart failure, unspecified Assessment/Plan diuretics cardio evaluation check intake and output MARY CORRIGAN Apr 23, 2017 13:35
[2017-04-23 16:01] LABS: TROPONIN I < 0.30 ng/mL (<=0.30)
[2017-04-23] MEDS: traMADol 50mg tab ORAL PRN (22:08)
[2017-04-24] VITALS: BP 106/77
[2017-04-24 04:00] VITALS: BP 117/80
[2017-04-24] MEDS: traMADol 50mg tab ORAL PRN ×2 (07:47→20:31)
[2017-04-24 07:54] LABS: BASOPHILS % (AUTO) 0.7 % (0.0-2.0); EOSINOPHILS % (AUTO) 1.2 % (0.0-3.0); MEAN CORPUSCULAR HEMOGLOBIN 27.5 PG (27.0-31.0); MEAN CORPUSCULAR HGB CONC 31.7 G/DL (32.0-36.0); MEAN CORPUSCULAR VOLUME 87 FL (80-99); MEAN PLATELET VOLUME 10.1 FL (6.5-10.1); MONOCYTES % (AUTO) 6.4 % (1.0-10.0); NEUTROPHILS % (AUTO) 60.7 % (45.0-75.0); PLATELET COUNT 237 K/UL (150-450); RED BLOOD COUNT 4.93 M/UL (4.70-6.10); RED CELL DISTRIBUTION WIDTH 14.8 % (11.6-14.8); WHITE BLOOD COUNT 11.9 K/UL (4.8-10.8)
[2017-04-24 08:00] VITALS: BP 120/85
[2017-04-24 08:23] LABS: CALCIUM 8.8 mg/dL (8.6-10.2); CHOLESTEROL/HDL RATIO 2.6 (3.3-4.4); CREATININE 1.6 mg/dL (0.7-1.2); CRP QUANT 0.4 mg/dL (< 0.5); GLOMERULAR FILTRATION RATE 58.7 mL/min (>60); POTASSIUM 3.9 mEQ/L (3.4-4.9); TOTAL PROTEIN 6.7 g/dL (6.6-8.7); TROPONIN I < 0.30 ng/mL (<=0.30)
[2017-04-24 08:36] LABS: THYROID STIMULATING HORMONE 1.55 uIU/mL (0.300-4.500)
[2017-04-24] MEDS: Aspirin Baby 81mg ORAL SCH (08:40)
[2017-04-24] MEDS: Indomethacin 75 MG CAPSULE.ER ORAL SCH (08:42)
[2017-04-24] MEDS: Lisinopril 10mg tab ORAL SCH ×2 (08:42→20:31)
[2017-04-24] MEDS: Heparin 5000 units/ml inj SUBQ SCH ×2 (08:44→20:32)
[2017-04-24 08:48] LABS: BILIRUBIN,DIRECT 0.5 mg/dL (0.1-0.3)
[2017-04-24 08:56] LABS: INR 1.1 (0.9-1.1); PROTHROMBIN TIME 11.4 SEC (9.30-11.50)
[2017-04-24 12:00] VITALS: BP 128/95
--- NOTE | 2017-04-24 13:45 | Cardiology Progress Note ---
Assessment/Plan Assessment/Plan chronic chf cm subtance abue mr pulm htn acei diruetic bb eventually hope soon [id number] Objective Last 24 Hour Vital Signs Date Time Temp Pulse Resp B/P Pulse Ox O2 Delivery O2 Flow Rate FiO2 04/24/17 12:00 96.0 49 18 128/95 Nasal Cannula 2.0 98 04/24/17 08:43 106 120/85 04/24/17 08:42 120/85 04/24/17 08:00 95.7 106 18 120/85 97 Room Air 04/24/17 07:00 104 18 Nasal Cannula 2.0 04/24/17 04:00 98.0 96 20 117/80 96 Nasal Cannula 2.0 04/24/17 03:41 95 04/24/17 00:00 97.7 100 18 106/77 100 Nasal Cannula 2.0 04/23/17 23:52 90 04/23/17 21:00 98 124/88 04/23/17 20:52 124/88 04/23/17 20:20 98 18 Nasal Cannula 2.0 04/23/17 20:00 96.6 99 20 124/88 99 Nasal Cannula 2.0 04/23/17 20:00 96.6 99 20 124/88 99 Nasal Cannula 2.0 04/23/17 19:51 106 04/23/17 16:00 89 04/23/17 15:22 96.8 90 20 122/77 100 Room Air Intake and Output 04/23/17 04/24/17 19:00 07:00 Intake Total 400 ml 128 ml Output Total 350 ml 1400 ml Balance 50 ml -1272 ml Intake Oral 360 ml IV Total 40 ml 128 ml Output Urine Total 350 ml 1400 ml Laboratory Tests Test 04/23/17 15:28 04/24/17 06:48 Troponin I < 0.30 ng/mL (<=0.30) < 0.30 ng/mL (<=0.30) White Blood Count 11.9 K/UL (4.8-10.8) H Red Blood Count 4.93 M/UL (4.70-6.10) Hemoglobin 13.6 G/DL (14.2-18.0) L Hematocrit 42.8 % (42.0-52.0) Mean Corpuscular Volume 87 FL (80-99) Mean Corpuscular Hemoglobin 27.5 PG (27.0-31.0) Mean Corpuscular Hemoglobin Concent 31.7 G/DL (32.0-36.0) L Red Cell Distribution Width 14.8 % (11.6-14.8) Platelet Count 237 K/UL (150-450) Mean Platelet Volume 10.1 FL (6.5-10.1) Neutrophils (%) (Auto) 60.7 % (45.0-75.0) Lymphocytes (%) (Auto) 31.0 % (20.0-45.0) Monocytes (%) (Auto) 6.4 % (1.0-10.0) Eosinophils (%) (Auto) 1.2 % (0.0-3.0) Basophils (%) (Auto) 0.7 % (0.0-2.0) Prothrombin Time 11.4 SEC (9.30-11.50) Prothromb Time International Ratio 1.1 (0.9-1.1) Activated Partial Thromboplast Time 25 SEC (23-33) Sodium Level 137 mEQ/L (135-145) Potassium Level 3.9 mEQ/L (3.4-4.9) Chloride Level 96 mEQ/L (98-107) L Carbon Dioxide Level 24 mEQ/L (20-30) Anion Gap 17 (5-15) H Blood Urea Nitrogen 24 mg/dL (7-23) H Creatinine 1.6 mg/dL (0.7-1.2) H Estimat Glomerular Filtration Rate 58.7 mL/min (>60) Glucose Level 135 mg/dL (74-106) H Calcium Level 8.8 mg/dL (8.6-10.2) Total Bilirubin 1.5 mg/dL (0.0-1.2) H Direct Bilirubin 0.5 mg/dL (0.1-0.3) H Aspartate Amino Transf (AST/SGOT) 32 U/L (5-40) Alanine Aminotransferase (ALT/SGPT) 34 U/L (3-41) Alkaline Phosphatase 139 U/L (40-129) H C-Reactive Protein, Quantitative 0.4 mg/dL (< 0.5) Pro-B-Type Natriuretic Peptide 2423 pg/mL (0-125) H Total Protein 6.7 g/dL (6.6-8.7) Albumin 3.4 g/dL (3.5-5.2) L Globulin 3.3 g/dL Albumin/Globulin Ratio 1.0 (1.0-2.7) Triglycerides Level 68 mg/dL (< 150) Cholesterol Level 65 mg/dL (< 200) LDL Cholesterol 26 mg/dL (60-99) L HDL Cholesterol 25 mg/dL (> 60) Cholesterol/HDL Ratio 2.6 (3.3-4.4) L Thyroid Stimulating Hormone (TSH) 1.550 uIU/mL (0.300-4.500) MARY LARKIN Apr 24, 2017 13:45
[2017-04-24 16:00] VITALS: BP 128/89
[2017-04-24] MEDS ORDERED: Indomethacin 75 MG CAPSULE.ER ORAL PRN (18:00)
--- NOTE | 2017-04-24 18:03 | Pulmonology Progress Note ---
Assessment/Plan Problems: (1) Acute respiratory failure (2) Amphetamine abuse (3) Noncompliance (4) CHF (congestive heart failure) Assessment/Plan watch bun/creatinine, dc lasix drip for now check labs in am Subjective ROS Limited/Unobtainable: No Constitutional: Reports: no symptoms HEENT: Repors: no symptoms Respiratory: Reports: no symptoms Allergies: Coded Allergies: No Known Allergies (Unverified , 08/25/13) Objective Last 24 Hour Vital Signs Date Time Temp Pulse Resp B/P Pulse Ox O2 Delivery O2 Flow Rate FiO2 04/24/17 16:00 83 04/24/17 16:00 89 19 128/89 100 Room Air 04/24/17 12:00 96.0 49 18 128/95 Nasal Cannula 2.0 98 04/24/17 12:00 99 04/24/17 08:43 106 120/85 04/24/17 08:42 120/85 04/24/17 08:00 95.7 106 18 120/85 97 Room Air 04/24/17 08:00 107 04/24/17 07:00 104 18 Nasal Cannula 2.0 04/24/17 04:00 98.0 96 20 117/80 96 Nasal Cannula 2.0 04/24/17 03:41 95 04/24/17 00:00 97.7 100 18 106/77 100 Nasal Cannula 2.0 04/23/17 23:52 90 04/23/17 21:00 98 124/88 04/23/17 20:52 124/88 04/23/17 20:20 98 18 Nasal Cannula 2.0 04/23/17 20:00 96.6 99 20 124/88 99 Nasal Cannula 2.0 04/23/17 20:00 96.6 99 20 124/88 99 Nasal Cannula 2.0 04/23/17 19:51 106 Intake and Output 04/23/17 04/24/17 19:00 07:00 Intake Total 400 ml 128 ml Output Total 350 ml 1400 ml Balance 50 ml -1272 ml Intake Oral 360 ml IV Total 40 ml 128 ml Output Urine Total 350 ml 1400 ml Objective General Appearance: WD/WN, no apparent distress Lines, tubes and drains: peripheral HEENT: normocephalic, atraumatic Neck: non-tender, normal alignment Respiratory/Chest: chest wall non-tender, lungs rales Breasts: no masses Cardiovascular/Chest: normal peripheral pulses, normal rate Abdomen: normal bowel sounds, non tender Genitourinary/Rectal: normal genital exam Extremities: normal range of motion, non-tender, normal inspection, + edema Skin Exam: normal pigmentation Laboratory Tests 04/24/17 06:48: White Blood Count 11.9H, Red Blood Count 4.93, Hemoglobin 13.6L, Hematocrit 42.8 , Mean Corpuscular Volume 87, Mean Corpuscular Hemoglobin 27.5, Mean Corpuscular Hemoglobin Concent 31.7L, Red Cell Distribution Width 14.8, Platelet Count 237, Mean Platelet Volume 10.1, Neutrophils (%) (Auto) 60.7, Lymphocytes (%) (Auto) 31.0, Monocytes (%) (Auto) 6.4, Eosinophils (%) (Auto) 1.2, Basophils (%) (Auto) 0.7, Prothrombin Time 11.4, Prothromb Time International Ratio 1.1, Activated Partial Thromboplast Time 25, Sodium Level 137, Potassium Level 3.9, Chloride Level 96L, Carbon Dioxide Level 24, Anion Gap 17H, Blood Urea Nitrogen 24H, Creatinine 1.6H, Estimat Glomerular Filtration Rate 58.7, Glucose Level 135H, Calcium Level 8.8, Total Bilirubin 1.5H, Direct Bilirubin 0.5H, Aspartate Amino Transf (AST/SGOT) 32, Alanine Aminotransferase (ALT/SGPT) 34, Alkaline Phosphatase 139H, Troponin I < 0.30, C- Reactive Protein, Quantitative 0.4, Pro-B-Type Natriuretic Peptide 2423H, Total Protein 6.7, Albumin 3.4L, Globulin 3.3, Albumin/Globulin Ratio 1.0, Triglycerides Level 68, Cholesterol Level 65, LDL Cholesterol 26L, HDL Cholesterol 25, Cholesterol/HDL Ratio 2.6L, Thyroid Stimulating Hormone (TSH) 1.550 Current Medications Medications (Trade) Dose Ordered Sig/Leonora Route PRN Reason Start Time Stop Time Status Last Admin Dose Admin Acetaminophen (Tylenol) 650 mg Q4H PRN ORAL T>100.5 04/23/17 07:15 05/23/17 07:14 Albuterol/ Ipratropium (DuoNeb 0.5-3(2.5)mg/3ml) 3 ml Q4H PRN HHN Shortness of Breath 04/23/17 07:15 04/28/17 07:14 Aspirin (ASA) 162 mg DAILY ORAL 04/23/17 09:00 05/23/17 08:59 04/24/17 08:40 Carvedilol (Coreg) 3.125 mg EVERY 12 HOURS ORAL 04/23/17 09:00 05/23/17 08:59 04/24/17 08:43 Diltiazem HCl (Cardizem) 10 mg EVERY HOUR PRN IV HR > 120 bpm 04/23/17 07:15 05/23/17 07:14 Enalaprilat (Vasotec) 2.5 mg Q6H PRN IV sbp > 160 mmHg 04/23/17 07:15 05/23/17 07:14 Furosemide/ Dextrose (Lasix/D5W) 110 ml @ 11 mls/hr Q10H IV 04/23/17 15:00 05/23/17 14:59 04/24/17 11:08 Heparin Sodium (Porcine) 5000 units 5,000 units EVERY 12 HOURS SUBQ 04/23/17 09:00 05/23/17 08:59 04/24/17 08:44 Indomethacin (Indocin) 75 mg Q12HR ORAL 04/23/17 10:30 05/23/17 10:29 04/24/17 08:42 Lisinopril (Zestril) 10 mg Q12HR ORAL 04/23/17 09:00 05/23/17 08:59 04/24/17 08:42 Morphine Sulfate (Morphine Sulfate) 2 mg Q4H PRN IVP Severe Pain (Pain Scale 7-10) 04/23/17 07:15 04/30/17 07:14 04/23/17 08:36 Nitroglycerin (Ntg) 0.4 mg Q5MIN X 3 DOSES PRN SL Prn Chest Pain 04/23/17 07:15 05/23/17 07:14 Ondansetron HCl (Zofran) 4 mg Q6H PRN IVP Nausea & Vomiting 04/23/17 07:15 05/23/17 07:14 Polyethylene Glycol (Miralax) 17 gm DAILYPRN PRN ORAL Constipation 04/23/17 07:15 05/23/17 07:14 Ranitidine HCl (Zantac) 150 mg DAILYPRN PRN ORAL heartburn 04/24/17 10:45 05/24/17 10:44 04/24/17 11:07 Temazepam (Restoril) 15 mg HSPRN PRN ORAL Insomnia 04/23/17 21:00 04/30/17 20:59 Tramadol HCl (Ultram) 50 mg Q6H PRN ORAL Moderate Pain (Pain Scale 4-6) 04/23/17 07:15 04/30/17 07:14 04/24/17 07:47 MARY CORRIGAN Apr 24, 2017 18:03
[2017-04-24 20:00] VITALS: BP 133/89
--- NOTE | 2017-04-24 22:45 | Consultation ---
DATE OF CONSULTATION: 04/24/2017 CARDIOLOGY CONSULTATION REFERRING PHYSICIAN: Erika Cote M.D. REASON FOR ADMISSION: Abdominal pain. HISTORY OF PRESENT ILLNESS: The patient is a 37-year-old male with a history of cardiomyopathy, congestive heart failure, noncompliance, came to the hospital because he was told that his stomach was protruding and he looked in the mirror himself and found that to be true. He finally present to the emergency room. Initially, he came into the hospital complaining of shortness of breath as chief complaint, but then, it was changed to the fact that his abdomen was distended. There is no chest pain or pressure. There is no PND. He does have dyspnea on exertion. There is no orthopnea. He uses one pillow. There is no dizziness or lightheadedness. He has occasional palpitations. PAST MEDICAL HISTORY: As previously noted in my consultation, he has a history of cardiomyopathy, congestive heart failure, and positive urine drug screen previously for marijuana and amphetamines on prior occasions. ALLERGIES: He has no known drug allergies. SOCIAL HISTORY: He says he occasionally smokes and drinks alcoholic beverages and he denied previously use of any drugs except for marijuana. REVIEW OF SYSTEMS: Gastrointestinal: Negative. Genitourinary: Negative. Pulmonary: Negative. Constitutional: Negative. PHYSICAL EXAMINATION: GENERAL: Shows to be a young gentleman in no respiratory distress. He was sleeping when I came in to the room. VITAL SIGNS: Blood pressure is anywhere between 120/85 to 128/95, heart rate 106, and temperature 96 degrees. NECK: Supple. No jugular venous distention. LUNGS: Clear to auscultation and percussion. CARDIAC EXAMINATION: S1 is normal. S2 is normal. Regular rate and rhythm. No heaves, thrills, gallops, or rubs are noted. ABDOMEN: Soft and nontender. Positive bowel sounds. EXTREMITIES: There is no clubbing, cyanosis, nor is there any edema. NEUROLOGIC: He is awake and responsive. LABORATORY VALUES: White count 11.9 down from 13.9 with hemoglobin 13.2, and platelet count of 237,000. Sodium is 137, potassium 3.9, chloride 96, bicarbonate 24, BUN 24, creatinine 1.6 and direct comparison with his creatinine has been elevated to 0.9 in 2012 and up to 1.4, this last admission in March. His alkaline phosphate is 131. Three sets of cardiac enzymes are all negative. ProBNP is 2400. It has been as high as 2900 on prior occasions. His liver function tests were all normal. His total cholesterol was 165 with a LDL of 26 and HDL of 25 and TSH of 1.55. His coags, INR 1.1 and PTT of 25. The urinalysis is not done in this hospitalization. Urine drug screen positive for marijuana and positive for amphetamines as it was previously. ASSESSMENT AND PLAN: 1. Chronic congestive heart failure. 2. Cardiomyopathy in December. He had an ejection fraction of 20%. 3. Mitral regurgitation. 4. Pulmonary hypertension. 5. Substance abuse. 6. Abdominal distention. PLAN: Dr. Cote, this patient was seen in cardiac consultation. The patient should be continued on medications due to congestive heart failure. I had been previously hesitant in terms of administering beta-blockers because his continuous use of amphetamines contraindicate the use, although at some point in the future may be possible to put him on that. Otherwise, diuretics to be continued and he appears to be not in as good a shape as he was on prior occasions, and hopefully, he will be able to go home relatively soon. Geraldo Turner M.D. DR: ANH JOB#: [id number] CC:
[2017-04-25] VITALS: BP 106/74
[2017-04-25 04:00] VITALS: BP 128/73
[2017-04-25 08:00] VITALS: BP 140/74
[2017-04-25] MEDS: Lisinopril 10mg tab ORAL SCH ×2 (08:25→20:45)
[2017-04-25] MEDS: Aspirin Baby 81mg ORAL SCH (08:25)
[2017-04-25 08:27] LABS: BASOPHILS % (AUTO) 0.8 % (0.0-2.0); EOSINOPHILS % (AUTO) 1.2 % (0.0-3.0); LYMPHOCYTES % (AUTO) 29.1 % (20.0-45.0); MEAN CORPUSCULAR HEMOGLOBIN 27.2 PG (27.0-31.0); MEAN CORPUSCULAR HGB CONC 31.2 G/DL (32.0-36.0); MEAN CORPUSCULAR VOLUME 87 FL (80-99); MEAN PLATELET VOLUME 9.5 FL (6.5-10.1); MONOCYTES % (AUTO) 6.5 % (1.0-10.0); NEUTROPHILS % (AUTO) 62.4 % (45.0-75.0); PLATELET COUNT 214 K/UL (150-450); RED BLOOD COUNT 5.07 M/UL (4.70-6.10); WHITE BLOOD COUNT 13.2 K/UL (4.8-10.8)
[2017-04-25] MEDS: Heparin 5000 units/ml inj SUBQ SCH ×2 (08:27→20:47)
[2017-04-25 08:48] LABS: TROPONIN I < 0.30 ng/mL (<=0.30)
[2017-04-25 09:38] LABS: CREATININE 1.6 mg/dL (0.7-1.2); GLOMERULAR FILTRATION RATE 58.7 mL/min (>60); POTASSIUM 3.9 mEQ/L (3.4-4.9); TOTAL PROTEIN 6.6 g/dL (6.6-8.7)
[2017-04-25 10:14] LABS: BILIRUBIN,DIRECT 0.5 mg/dL (0.1-0.3)
--- NOTE | 2017-04-25 11:04 | Diagnostic Imaging Report ---
Indication: Dyspnea Comparison: 04/24/17 A single view chest radiograph was obtained. Findings: Interstitial edema suspected once again. Heart is enlarged. Lung volumes are smaller currently. Impression: Suspect interstitial edema/CHF
[2017-04-25 11:53] VITALS: BP 123/76
--- NOTE | 2017-04-25 14:26 | Cardiology Progress Note ---
Assessment/Plan Assessment/Plan 1. Chronic congestive heart failure. 2. Cardiomyopathy in December. He had an ejection fraction of 20%. 3. Mitral regurgitation. 4. Pulmonary hypertension. 5. Substance abuse. 6. Abdominal distention. diurtic acei bb avoidance or drugs home tomorrow will need perscription o fmeds lasix 40 daily coreg 3.125 mg bid, lisinopril 10 mg bi Subjective Cardiovascular: Denies: chest pain, lightheadedness, palpitations Respiratory: Denies: SOB with excertion, shortness of breath Gastrointestinal/Abdominal: Denies: abdominal pain Genitourinary: Denies: burning Objective Last 24 Hour Vital Signs Date Time Temp Pulse Resp B/P Pulse Ox O2 Delivery O2 Flow Rate FiO2 04/25/17 12:00 95 04/25/17 11:53 97.0 99 17 123/76 99 Nasal Cannula 3.0 04/25/17 08:25 140/74 04/25/17 08:24 103 140/74 04/25/17 08:00 96.8 95 17 140/74 100 Nasal Cannula 3.0 04/25/17 08:00 95 04/25/17 07:58 103 18 Nasal Cannula 3.0 32 04/25/17 04:00 97.0 97 20 128/73 97 Nasal Cannula 2.0 04/25/17 04:00 95 04/25/17 00:00 100 04/25/17 00:00 97.5 95 18 106/74 97 Nasal Cannula 2.0 04/24/17 20:31 133/89 04/24/17 20:31 110 133/89 04/24/17 20:00 97.5 110 20 133/89 98 Nasal Cannula 2.0 04/24/17 20:00 99 04/24/17 18:50 125 18 Nasal Cannula 3.0 32 04/24/17 16:00 83 04/24/17 16:00 89 19 128/89 100 Room Air General Appearance: no apparent distress, alert Neck: no JVD Cardiovascular: normal rate, regular rhythm Respiratory/Chest: lungs clear Abdomen: normal bowel sounds, non tender, soft Extremities: moderate edema Intake and Output 04/24/17 04/25/17 19:00 07:00 Intake Total 103 ml 240 ml Output Total 600 ml 650 ml Balance -497 ml -410 ml Intake Oral 240 ml IV Total 103 ml Output Urine Total 600 ml 650 ml Laboratory Tests Test 04/25/17 07:35 White Blood Count 13.2 K/UL (4.8-10.8) H Red Blood Count 5.07 M/UL (4.70-6.10) Hemoglobin 13.8 G/DL (14.2-18.0) L Hematocrit 44.2 % (42.0-52.0) Mean Corpuscular Volume 87 FL (80-99) Mean Corpuscular Hemoglobin 27.2 PG (27.0-31.0) Mean Corpuscular Hemoglobin Concent 31.2 G/DL (32.0-36.0) L Red Cell Distribution Width 15.0 % (11.6-14.8) H Platelet Count 214 K/UL (150-450) Mean Platelet Volume 9.5 FL (6.5-10.1) Neutrophils (%) (Auto) 62.4 % (45.0-75.0) Lymphocytes (%) (Auto) 29.1 % (20.0-45.0) Monocytes (%) (Auto) 6.5 % (1.0-10.0) Eosinophils (%) (Auto) 1.2 % (0.0-3.0) Basophils (%) (Auto) 0.8 % (0.0-2.0) Sodium Level 136 mEQ/L (135-145) Potassium Level 3.9 mEQ/L (3.4-4.9) Chloride Level 93 mEQ/L (98-107) L Carbon Dioxide Level 25 mEQ/L (20-30) Anion Gap 18 (5-15) H Blood Urea Nitrogen 28 mg/dL (7-23) H Creatinine 1.6 mg/dL (0.7-1.2) H Estimat Glomerular Filtration Rate 58.7 mL/min (>60) Glucose Level 123 mg/dL (74-106) H Calcium Level 9.0 mg/dL (8.6-10.2) Total Bilirubin 1.8 mg/dL (0.0-1.2) H Direct Bilirubin 0.5 mg/dL (0.1-0.3) H Aspartate Amino Transf (AST/SGOT) 23 U/L (5-40) Alanine Aminotransferase (ALT/SGPT) 28 U/L (3-41) Alkaline Phosphatase 119 U/L (40-129) Troponin I < 0.30 ng/mL (<=0.30) Pro-B-Type Natriuretic Peptide 2551 pg/mL (0-125) H Total Protein 6.6 g/dL (6.6-8.7) Albumin 3.4 g/dL (3.5-5.2) L Globulin 3.2 g/dL Albumin/Globulin Ratio 1.0 (1.0-2.7) MARY LARKIN Apr 25, 2017 14:26
--- NOTE | 2017-04-25 15:37 | Pulmonology Progress Note ---
Assessment/Plan Problems: (1) Acute respiratory failure (2) Amphetamine abuse (3) Noncompliance (4) CHF (congestive heart failure) Assessment/Plan diuresed 5 liters sofar watch bun/creatinine, dc home in am check labs in am Subjective ROS Limited/Unobtainable: No Interval Events: comfortable Allergies: Coded Allergies: No Known Allergies (Unverified , 08/25/13) Objective Last 24 Hour Vital Signs Date Time Temp Pulse Resp B/P Pulse Ox O2 Delivery O2 Flow Rate FiO2 04/25/17 12:00 95 04/25/17 11:53 97.0 99 17 123/76 99 Nasal Cannula 3.0 04/25/17 08:25 140/74 04/25/17 08:24 103 140/74 04/25/17 08:00 96.8 95 17 140/74 100 Nasal Cannula 3.0 04/25/17 08:00 95 04/25/17 07:58 103 18 Nasal Cannula 3.0 32 04/25/17 04:00 97.0 97 20 128/73 97 Nasal Cannula 2.0 04/25/17 04:00 95 04/25/17 00:00 100 04/25/17 00:00 97.5 95 18 106/74 97 Nasal Cannula 2.0 04/24/17 20:31 133/89 04/24/17 20:31 110 133/89 04/24/17 20:00 97.5 110 20 133/89 98 Nasal Cannula 2.0 04/24/17 20:00 99 04/24/17 18:50 125 18 Nasal Cannula 3.0 32 04/24/17 16:00 83 04/24/17 16:00 89 19 128/89 100 Room Air Intake and Output 04/24/17 04/25/17 19:00 07:00 Intake Total 103 ml 240 ml Output Total 600 ml 650 ml Balance -497 ml -410 ml Intake Oral 240 ml IV Total 103 ml Output Urine Total 600 ml 650 ml Objective General Appearance: WD/WN, no apparent distress Lines, tubes and drains: peripheral HEENT: normocephalic, atraumatic Neck: non-tender, normal alignment Respiratory/Chest: chest wall non-tender, lungs rales Breasts: no masses Cardiovascular/Chest: normal peripheral pulses, normal rate Abdomen: normal bowel sounds, non tender Genitourinary/Rectal: normal genital exam Extremities: normal range of motion, non-tender, normal inspection, + edema Skin Exam: normal pigmentation Laboratory Tests 04/25/17 07:35: White Blood Count 13.2H, Red Blood Count 5.07, Hemoglobin 13.8L, Hematocrit 44.2 , Mean Corpuscular Volume 87, Mean Corpuscular Hemoglobin 27.2, Mean Corpuscular Hemoglobin Concent 31.2L, Red Cell Distribution Width 15.0H, Platelet Count 214, Mean Platelet Volume 9.5, Neutrophils (%) (Auto) 62.4, Lymphocytes (%) (Auto) 29.1, Monocytes (%) (Auto) 6.5, Eosinophils (%) (Auto) 1.2, Basophils (%) (Auto) 0.8, Sodium Level 136, Potassium Level 3.9, Chloride Level 93L, Carbon Dioxide Level 25, Anion Gap 18H, Blood Urea Nitrogen 28H, Creatinine 1.6H, Estimat Glomerular Filtration Rate 58.7, Glucose Level 123H, Calcium Level 9.0, Total Bilirubin 1.8H, Direct Bilirubin 0.5H, Aspartate Amino Transf (AST/SGOT) 23, Alanine Aminotransferase (ALT/SGPT) 28, Alkaline Phosphatase 119, Troponin I < 0.30, Pro-B-Type Natriuretic Peptide 2551H, Total Protein 6.6, Albumin 3.4L, Globulin 3.2, Albumin/Globulin Ratio 1.0 Current Medications Medications (Trade) Dose Ordered Sig/Leonora Route PRN Reason Start Time Stop Time Status Last Admin Dose Admin Acetaminophen (Tylenol) 650 mg Q4H PRN ORAL T>100.5 04/23/17 07:15 05/23/17 07:14 Albuterol/ Ipratropium (DuoNeb 0.5-3(2.5)mg/3ml) 3 ml Q4H PRN HHN Shortness of Breath 04/23/17 07:15 04/28/17 07:14 Aspirin (ASA) 162 mg DAILY ORAL 04/23/17 09:00 05/23/17 08:59 04/25/17 08:25 Carvedilol (Coreg) 3.125 mg EVERY 12 HOURS ORAL 04/23/17 09:00 05/23/17 08:59 04/25/17 08:24 Diltiazem HCl (Cardizem) 10 mg EVERY HOUR PRN IV HR > 120 bpm 04/23/17 07:15 05/23/17 07:14 Enalaprilat (Vasotec) 2.5 mg Q6H PRN IV sbp > 160 mmHg 04/23/17 07:15 05/23/17 07:14 Furosemide (Lasix) 40 mg EVERY 12 HOURS IV 04/25/17 15:00 05/25/17 14:59 04/25/17 15:14 Heparin Sodium (Porcine) (Heparin 5000 units/ml) 5,000 units EVERY 12 HOURS SUBQ 04/23/17 09:00 05/23/17 08:59 04/25/17 08:27 Indomethacin (Indocin) 75 mg Q12HR PRN ORAL pain 04/24/17 18:00 05/24/17 17:59 Lisinopril (Zestril) 10 mg Q12HR ORAL 04/23/17 09:00 05/23/17 08:59 04/25/17 08:25 Morphine Sulfate (Morphine Sulfate) 2 mg Q4H PRN IVP Severe Pain (Pain Scale 7-10) 04/23/17 07:15 04/30/17 07:14 04/23/17 08:36 Nitroglycerin (Ntg) 0.4 mg Q5MIN X 3 DOSES PRN SL Prn Chest Pain 04/23/17 07:15 05/23/17 07:14 Ondansetron HCl (Zofran) 4 mg Q6H PRN IVP Nausea & Vomiting 04/23/17 07:15 05/23/17 07:14 Polyethylene Glycol (Miralax) 17 gm DAILYPRN PRN ORAL Constipation 04/23/17 07:15 05/23/17 07:14 Ranitidine HCl (Zantac) 150 mg DAILYPRN PRN ORAL heartburn 04/24/17 10:45 05/24/17 10:44 04/24/17 11:07 Temazepam (Restoril) 15 mg HSPRN PRN ORAL Insomnia 04/23/17 21:00 04/30/17 20:59 Tramadol HCl (Ultram) 50 mg Q6H PRN ORAL Moderate Pain (Pain Scale 4-6) 04/23/17 07:15 04/30/17 07:14 04/24/17 20:31 MARY CORRIGAN Apr 25, 2017 15:37
[2017-04-25 16:00] VITALS: BP 120/72
[2017-04-25 20:11] VITALS: BP 129/77
[2017-04-26] MEDS: Morphine Sulfate 2mg/ml Inj IVP PRN (00:19)
[2017-04-26 00:30] VITALS: BP 142/80
[2017-04-26 04:00] VITALS: BP 129/97
[2017-04-26 07:22] LABS: BASOPHILS % (AUTO) 0.6 % (0.0-2.0); EOSINOPHILS % (AUTO) 1.4 % (0.0-3.0); LYMPHOCYTES % (AUTO) 26.2 % (20.0-45.0); MEAN CORPUSCULAR HEMOGLOBIN 29.4 PG (27.0-31.0); MEAN CORPUSCULAR HGB CONC 33.5 G/DL (32.0-36.0); MEAN CORPUSCULAR VOLUME 88 FL (80-99); MEAN PLATELET VOLUME 9.1 FL (6.5-10.1); MONOCYTES % (AUTO) 6.2 % (1.0-10.0); NEUTROPHILS % (AUTO) 65.6 % (45.0-75.0); PLATELET COUNT 186 K/UL (150-450); RED BLOOD COUNT 4.59 M/UL (4.70-6.10); RED CELL DISTRIBUTION WIDTH 14.6 % (11.6-14.8); WHITE BLOOD COUNT 14.1 K/UL (4.8-10.8)
[2017-04-26 08:00] VITALS: BP 128/83
[2017-04-26 08:10] LABS: ALANINE AMINOTRANSFERASE 29 U/L (3-41); ALBUMIN/GLOBULIN RATIO 1.1 (1.0-2.7); ANION GAP 18 (5-15); ASPARTATE AMINO TRANSFERASE 27 U/L (5-40); CALCIUM 9.2 mg/dL (8.6-10.2); CARBON DIOXIDE 25 mEQ/L (20-30); CHLORIDE 97 mEQ/L (98-107); CREATININE 1.3 mg/dL (0.7-1.2); GLOMERULAR FILTRATION RATE > 60 mL/min (>60); HEMOLYSIS 3; MAGNESIUM 1.7 mg/dL (1.7-2.5); POTASSIUM 3.7 mEQ/L (3.4-4.9); SODIUM 140 mEQ/L (135-145); TOTAL PROTEIN 6.7 g/dL (6.6-8.7)
[2017-04-26 08:21] LABS: BILIRUBIN,DIRECT 0.5 mg/dL (0.1-0.3)
[2017-04-26] MEDS: Lisinopril 10mg tab ORAL SCH (08:32)
[2017-04-26] MEDS: Aspirin Baby 81mg ORAL SCH (08:32)
[2017-04-26] MEDS: Heparin 5000 units/ml inj SUBQ SCH (08:34)
--- NOTE | 2017-04-26 09:10 | Cardiology Report ---
APPROVED REPORT EXAM: Two-dimensional and M-mode echocardiogram with Doppler and color Doppler. INDICATION LV function M-Mode DIMENSIONS IVSd0.9 (0.7-1.1cm)Left Atrium (MM)3.8 (1.6-4.0cm) LVDd6.5 (3.5-5.6cm)Aortic Root3.2 (2.0-3.7cm) PWd1.0 (0.7-1.1cm)Aortic Cusp Exc.1.5 (1.5-2.0cm) LVDs6.2 (2.5-4.0cm) PWs1.8 cm Severe left ventricular enlargement. Global left ventricular severe hypokinesis. Septal dyskinesis with thinning. Inferior akinesis. Best motion noted in proximal to mid lateral adn anteior wall s Left ventricular ejection fraction estimated to be 15-20 %. Increased E point-interventricular septal separation c/w left ventricular dysfunction. Anterior Echo-free space, may be due to pericardial fat or effusion. Mild bi-atrial enlargement. Mild right ventricular enlargement. Mild focal aortic valve sclerosis with adequate cusp excursion. Mildly thickened mitral valve leaflets with normal excursion. Mitral annulus and aortic root calcification. Normal pulmonic valve structure. Normal tricuspid valve structure. IVC dilated at 2.5 cm without physiologic collapse suggestive of increased RA pressure. A color flow and spectral Doppler study was performed and revealed: Trace aortic regurgitation. Mild mitral regurgitation. Mitral inflow velocities indicates possible pseudo normalization pattern implying moderately elevated left atrial pressure (Grade II). Moderate tricuspid regurgitation. Tricuspid systolic velocities suggests peak right ventricular systolic pressure of 54 mmHg, consistent with moderate pulmonary hypertension.
--- NOTE | 2017-04-26 09:10 | Diagnostic Imaging Report ---
Indication: Dyspnea Comparison: 04/23/17 A single view chest radiograph was obtained. Findings: Accounting for differences in technique there is probably no change. The previous study was quite lordotic in projection angle. Mild interstitial edema may be present. The heart is enlarged. Impression: Suspected mild interstitial edema. Comparison with the previous day is problematic but there is probably no change.
[2017-04-26 11:29] VITALS: BP 127/85
--- NOTE | 2017-04-26 13:17 | Pulmonology Progress Note ---
Assessment/Plan Problems: (1) Acute respiratory failure (2) Amphetamine abuse (3) Noncompliance (4) CHF (congestive heart failure) Assessment/Plan diuresed 5 liters sofar watch bun/creatinine, dc home today check labs in am Subjective ROS Limited/Unobtainable: No Constitutional: Reports: no symptoms HEENT: Repors: no symptoms Allergies: Coded Allergies: No Known Allergies (Unverified , 08/25/13) Objective Last 24 Hour Vital Signs Date Time Temp Pulse Resp B/P Pulse Ox O2 Delivery O2 Flow Rate FiO2 04/26/17 11:29 96.3 100 20 127/85 100 Nasal Cannula 2.0 04/26/17 08:32 128/83 04/26/17 08:32 103 128/83 04/26/17 08:00 97.7 103 20 128/83 98 Nasal Cannula 2.0 04/26/17 08:00 99 04/26/17 07:50 Nasal Cannula 3.0 32 04/26/17 07:49 98 18 Nasal Cannula 3.0 32 04/26/17 07:49 97 Nasal Cannula 3.0 32 04/26/17 04:00 97.0 101 20 129/97 96 Room Air 04/26/17 04:00 98 04/26/17 00:59 97.0 04/26/17 00:30 97.0 107 20 142/80 98 Room Air 04/26/17 00:00 113 04/25/17 20:45 129/77 04/25/17 20:45 112 129/77 04/25/17 20:11 98.0 112 20 129/77 100 Nasal Cannula 2.0 04/25/17 20:00 106 04/25/17 19:30 Nasal Cannula 2.0 28 04/25/17 19:30 100 18 Nasal Cannula 3.0 32 04/25/17 19:30 97 Nasal Cannula 2.0 28 04/25/17 16:00 97.0 95 17 120/72 99 Nasal Cannula 3.0 04/25/17 16:00 111 Intake and Output 04/25/17 04/26/17 19:00 07:00 Intake Total 780 ml Output Total 1400 ml Balance -620 ml Intake Oral 780 ml Output Urine Total 1400 ml # Voids 3 Objective General Appearance: WD/WN, no apparent distress Lines, tubes and drains: peripheral HEENT: normocephalic, atraumatic Neck: non-tender, normal alignment Respiratory/Chest: chest wall non-tender, lungs rales Breasts: no masses Cardiovascular/Chest: normal peripheral pulses, normal rate Abdomen: normal bowel sounds, non tender Genitourinary/Rectal: normal genital exam Extremities: normal range of motion, non-tender, normal inspection, + edema Skin Exam: normal pigmentation Laboratory Tests 04/26/17 05:40: White Blood Count 14.1H, Red Blood Count 4.59L, Hemoglobin 13.5L, Hematocrit 40.3L, Mean Corpuscular Volume 88, Mean Corpuscular Hemoglobin 29.4, Mean Corpuscular Hemoglobin Concent 33.5, Red Cell Distribution Width 14.6, Platelet Count 186, Mean Platelet Volume 9.1, Neutrophils (%) (Auto) 65.6, Lymphocytes (% ) (Auto) 26.2, Monocytes (%) (Auto) 6.2, Eosinophils (%) (Auto) 1.4, Basophils ( %) (Auto) 0.6, Sodium Level 140, Potassium Level 3.7, Chloride Level 97L, Carbon Dioxide Level 25, Anion Gap 18H, Blood Urea Nitrogen 27H, Creatinine 1.3H , Estimat Glomerular Filtration Rate > 60, Glucose Level 93, Calcium Level 9.2, Magnesium Level 1.7, Total Bilirubin 1.8H, Direct Bilirubin 0.5H, Aspartate Amino Transf (AST/SGOT) 27, Alanine Aminotransferase (ALT/SGPT) 29, Alkaline Phosphatase 130H, Pro-B-Type Natriuretic Peptide 2423H, Total Protein 6.7, Albumin 3.6, Globulin 3.1, Albumin/Globulin Ratio 1.1 Current Medications Medications (Trade) Dose Ordered Sig/Leonora Route PRN Reason Start Time Stop Time Status Last Admin Dose Admin Acetaminophen (Tylenol) 650 mg Q4H PRN ORAL T>100.5 04/23/17 07:15 05/23/17 07:14 Albuterol/ Ipratropium (DuoNeb 0.5-3(2.5)mg/3ml) 3 ml Q4H PRN HHN Shortness of Breath 04/23/17 07:15 04/28/17 07:14 Aspirin (ASA) 162 mg DAILY ORAL 04/23/17 09:00 05/23/17 08:59 04/26/17 08:32 Carvedilol (Coreg) 3.125 mg EVERY 12 HOURS ORAL 04/23/17 09:00 05/23/17 08:59 04/26/17 08:32 Furosemide (Lasix) 40 mg EVERY 12 HOURS IV 04/25/17 15:00 05/25/17 14:59 04/26/17 08:32 Heparin Sodium (Porcine) (Heparin 5000 units/ml) 5,000 units EVERY 12 HOURS SUBQ 04/23/17 09:00 05/23/17 08:59 04/26/17 08:34 Indomethacin (Indocin) 75 mg Q12HR PRN ORAL pain 04/24/17 18:00 05/24/17 17:59 Lisinopril (Zestril) 10 mg Q12HR ORAL 04/23/17 09:00 05/23/17 08:59 04/26/17 08:32 Morphine Sulfate (Morphine Sulfate) 2 mg Q4H PRN IVP Severe Pain (Pain Scale 7-10) 04/23/17 07:15 04/30/17 07:14 04/26/17 00:19 Nitroglycerin (Ntg) 0.4 mg Q5MIN X 3 DOSES PRN SL Prn Chest Pain 04/23/17 07:15 05/23/17 07:14 Ranitidine HCl (Zantac) 150 mg DAILYPRN PRN ORAL heartburn 04/24/17 10:45 05/24/17 10:44 04/25/17 22:25 Temazepam (Restoril) 15 mg HSPRN PRN ORAL Insomnia 04/23/17 21:00 04/30/17 20:59 04/25/17 22:25 MARY CORRIGAN Apr 26, 2017 13:17
--- NOTE | 2017-04-27 11:42 | Discharge Summary ---
Discharge Summary Hospital Course Date of Admission Apr 23, 2017 at 05:56 Date of Discharge Apr 26, 2017 at 13:59 Admitting Diagnosis Congestive heart failure OTIS Crocker is a 37 year old male who was admitted on Apr 23, 2017 at 05: 56 for Congestive Heart Failure Hospital Course dc summary #[id number] Discharge Medications Continued Medications: Carvedilol (Coreg) 3.125 Mg Tablet 3.125 MG ORAL EVERY 12 HOURS for 30 Days, TAB Furosemide* (Lasix*) 40 Mg Tablet 40 MG ORAL DAILY, #30 TAB Lisinopril (Lisinopril*) 5 Mg Tablet 10 MG ORAL Q12HR for 30 Days, #60 TAB Discharge Condition Upon Discharge: stable Discharge Disposition Patient was discharged to Home (01) Discharge Diagnoses: Discharge Instructions Discharge Instructions Special Instructions I have been assigned to complete a D/C Summary on this account. I was not involved in the patient management Jillian Zazueta NP ([place]te[place]) Apr 27, 2017 11:42
--- NOTE | 2017-04-27 18:19 | Cardiology Report ---
APPROVED REPORT EKG Measurement Heart [id number] Normal sinus rhythm Possible Anterior infarct, age undetermined Prolonged QT Abnormal ECG
--- NOTE | 2017-04-28 03:00 | Discharge Summary 2 SIG ---
DATE OF ADMISSION: 04/23/2017 DATE OF DISCHARGE: 04/26/2017 REASON FOR ADMISSION: 37-year-old male with known history of cardiomyopathy ejection fraction only about 20% likely secondary to drug abuse, presented with complaint of shortness of breath and abdominal pain. The patient reported that he was out of his medications for one week. He denied fever. He denied chills. No nausea. No vomiting. Reported chest pain 10/10 worse with exertion. Similar symptoms in the past. Workup in the emergency room revealed the patient with generalized anasarca. Chest x-ray revealed cardiomegaly with vascular congestion. Pro BNP - 2024. EKG revealed no acute ischemic changes. Normal sinus rhythm. Troponin negative. WBC - 13.1. Urine tox screen positive for amphetamine and marijuana. The patient was given IV Lasix. The patient diuresed 2 liters after diuretic. The patient was placed on supplemetnal oxygen. The patient was admitted for further management. ADMITTING DIAGNOSES: 1. Acute respiratory failure. 2. Congestive heart failure. 3. Amphetamine abuse. 4. Noncompliance. HOSPITAL STAY: The patient admitted to telemetry floor. The patient started on diuresis. Intake and output, renal parameters, and electrolytes were closely monitored. Cardiology consult was requested. Supplemental oxygen and pulmonary toilet provided as needed to keep saturation above 92%. As the patient improved clinically, respiratory status improved as well. Paleobotanist seen and evaluated the patient. The patient with a known history of cardiomyopathy, ejection fraction less than 20%. Paleobotanist agreed with the diuretic regimen. Initially, he was hesitant to start the patient on beta-jonathan secondary to continuous amphetamine abuse. However after discussion with patient and counseling on abstinence from illicit street drugs, the patient was started on low dose of beta-jonathan and SIVA inhibitor prior to discharge and continued with diuretic. Repeated echocardiogram revealed ejection fraction of 10% to 15% and right ventricular systolic pressure of 54 consistent with moderate pulmonary hypertension as well as the evidence of moderate tricuspid regurgitation and mild to moderate mitral regurgitation. The patient was discharged home. Prescriptions provided and encouraged compliance. The patient was counseled on poor prognosis if not complaint with medication regimen and not stop using street drugs. DVT, GI prophylaxis provided. Bowel regimen instituted. Patient clinically improved and was stable for discharge. FINAL DIAGNOSES: 1. Acute respiratory failure. 2. Chronic congestive heart failure. 3. Amphetamine abuse. 4. Noncompliance. 5. Cardiomyopathy. 6. Moderate pulmonary hypertension. 7. Mitral regurgitation. DISCHARGE MEDICATIONS: See medication reconciliation list. DISCHARGE INSTRUCTIONS: The patient to follow up with the primary medical doctor. Erika Cote M.D. I have been assigned to dictate discharge summary on this account and I was not involved in the patient's management. Jillian Caligallo NJames DR: Caitlin JOB#: [id number] CC: [id number]
== END 2017-04-26 13:59 | disposition home or self-care (01) | DRG 189 ==
LOC: ENRESERVTM → ENRESERVDT → EMR 04:20 → EDBEDREQ 05:41 → 2E 05:56 → EDBEDREQ 06:18
DX: J96.00 Acute respiratory failure, unspecified whether with hypoxia or hypercapnia (principal); I42.9 Cardiomyopathy, unspecified; I27.2 Other secondary pulmonary hypertension; I50.9 Heart failure, unspecified; F15.10 Other stimulant abuse, uncomplicated; I08.1 Rheumatic disorders of both mitral and tricuspid valves; Z91.14 Patient's other noncompliance with medication regimen
CPT/HCPCS: 36415; 71010; 80053; 80061; 80300; 82248; 82550; 82553; 83735; 83880; 84443; 84484; 85025; 85610; 85730; 86140; 87081; 93005; 93306; 94664; 94760

== ENCOUNTER 2017-06-22 11:12 | Emergency (ER) | payer MEDICAID ==
[~2017-06-22] VITALS: Ht 172.7 cm; Wt 90.7 kg
[2017-06-22 11:12] VITALS: BP 137/81
--- NOTE | 2017-06-22 11:36 | Emergency Room Report ---
History of Present Illness General Chief Complaint: General Complaint Source: Patient Present Illness HPI This patient has a history of congestive heart failure. The patient states he' s been out of his regular CHF medications for the past week or so. He does not have a good reason other than he has been busy. He states he has noticed increased swelling in his lower extremities. He has some shortness of breath. He denies chest pain. He denies cough or congestion. Denies fever chills. He has no other complaints. Allergies: Coded Allergies: No Known Allergies (Unverified , 08/25/13) Patient History Past Medical History: see triage record, CAD, CHF Social History: Reports: drug use, smoking Reviewed Nursing Documentation: PMH: Agreed, PSxH: Agreed Nursing Documentation-PMH Hx Cardiac Problems: Yes - CHF Hx Cancer: No Hx Gastrointestinal Problems: No Review of Systems All Other Systems: negative except mentioned in HPI Physical Exam Vital Signs Date Time Temp Pulse Resp B/P Pulse Ox O2 Delivery O2 Flow Rate FiO2 06/22/17 11:12 97.9 101 16 137/81 95 Room Air Sp02 EP Interpretation: reviewed, normal General Appearance: no apparent distress, alert, GCS 15, non-toxic Head: normocephalic, atraumatic Eyes: bilateral eye PERRL, bilateral eye normal inspection ENT: hearing grossly normal, normal pharynx, no angioedema, normal voice Neck: full range of motion, supple/symm/no masses Respiratory: chest non-tender, lungs clear, normal breath sounds, speaking full sentences Cardiovascular #1: regular rate, rhythm, no edema Gastrointestinal: normal bowel sounds, non tender, soft, non-distended, no guarding, no rebound Rectal: deferred Musculoskeletal: back normal, gait/station normal, normal range of motion, swelling - BLE 2+pitting edema. +TPP Neurologic: alert, oriented x3, responsive, motor strength/tone normal, sensory intact, speech normal Psychiatric: judgement/insight normal, memory normal, mood/affect normal, no suicidal/homicidal ideation Skin: normal color, no rash, warm/dry, well hydrated Medical Decision Making Diagnostic Impression: Primary Impression: CHF (congestive heart failure) ER Course This patient presents with CHF exacerbation. His symptoms are mild. CXR has cardiomegaly but no pulmonary edema. He had no respiratory distress. He was given IV Lasix and urinated 2 L in the emergency department. The patient is well appearing overall nontoxic. I will start the patient back on his home Lasix, coag and Pepcid Complete. The patient was also instructed to obtain his medications from his primary care physician and be followed by a buffer automatic. He indicated understanding and intention to do so. Patient is given return precautions and followup instructions. Labs Test 06/22/17 11:52 06/22/17 12:50 Sodium Level 137 mEQ/L (135-145) Potassium Level 3.8 mEQ/L (3.4-4.9) Chloride Level 102 mEQ/L (98-107) Carbon Dioxide Level 23 mEQ/L (20-30) Anion Gap 12 (5-15) Blood Urea Nitrogen 15 mg/dL (7-23) Creatinine 1.1 mg/dL (0.7-1.2) Estimat Glomerular Filtration Rate > 60 mL/min (>60) Glucose Level 93 mg/dL (74-106) Calcium Level 8.9 mg/dL (8.6-10.2) Total Bilirubin 1.1 mg/dL (0.0-1.2) Direct Bilirubin 0.3 mg/dL (0.1-0.3) Aspartate Amino Transf (AST/SGOT) 30 U/L (5-40) Alanine Aminotransferase (ALT/SGPT) 33 U/L (3-41) Alkaline Phosphatase 144 U/L (40-129) Total Creatine Kinase 128 U/L (38-174) Creatine Kinase MB 3.2 ng/mL (< 6.7) Creatine Kinase MB Relative Index 2.5 Troponin I < 0.30 ng/mL (<=0.30) Pro-B-Type Natriuretic Peptide 3367 pg/mL (0-125) Total Protein 7.4 g/dL (6.6-8.7) Albumin 3.8 g/dL (3.5-5.2) Globulin 3.6 g/dL Albumin/Globulin Ratio 1.0 (1.0-2.7) White Blood Count 13.1 K/UL (4.8-10.8) Red Blood Count 4.78 M/UL (4.70-6.10) Hemoglobin 13.8 G/DL (14.2-18.0) Hematocrit 44.2 % (42.0-52.0) Mean Corpuscular Volume 93 FL (80-99) Mean Corpuscular Hemoglobin 28.8 PG (27.0-31.0) Mean Corpuscular Hemoglobin Concent 31.1 G/DL (32.0-36.0) Red Cell Distribution Width 15.5 % (11.6-14.8) Platelet Count 222 K/UL (150-450) Mean Platelet Volume 9.3 FL (6.5-10.1) Neutrophils (%) (Auto) 76.4 % (45.0-75.0) Lymphocytes (%) (Auto) 17.2 % (20.0-45.0) Monocytes (%) (Auto) 4.7 % (1.0-10.0) Eosinophils (%) (Auto) 1.1 % (0.0-3.0) Basophils (%) (Auto) 0.6 % (0.0-2.0) EKG Diagnostic Results Rate: tachycardiac Rhythm: other - S.tachycardia ST Segments: no acute changes Rhythm Strip Diag. Results EP Interpretation: yes Rate: 100's Rhythm: no PVC's, no ectopy Other Impression S.tachycardia Chest X-Ray Diagnostic Results Chest X-Ray Diagnostic Results : Chest X-Ray Ordered: Yes # of Views/Limited/Complete: 1 View Indication: Shortness of Breath EP Interpretation: Yes Interpretation: no consolidation, no effusion, no pneumothorax Impression: No acute disease Interpreting ER Provider: Cardiomegaly Last Vital Signs Date Time Temp Pulse Resp B/P Pulse Ox O2 Delivery O2 Flow Rate FiO2 06/22/17 11:12 97.9 101 16 137/81 95 Room Air Status: improved Disposition: HOME, SELF-CARE Condition: Improved CHIDI BLACK D.O. Jun 22, 2017 11:36
[2017-06-22 12:17] LABS: TROPONIN I < 0.30 ng/mL (<=0.30)
[2017-06-22 12:18] LABS: ALANINE AMINOTRANSFERASE 33 U/L (3-41); ANION GAP 12 (5-15); ASPARTATE AMINO TRANSFERASE 30 U/L (5-40); CALCIUM 8.9 mg/dL (8.6-10.2); CARBON DIOXIDE 23 mEQ/L (20-30); CHLORIDE 102 mEQ/L (98-107); CREATININE 1.1 mg/dL (0.7-1.2); GLOMERULAR FILTRATION RATE > 60 mL/min (>60); HEMOLYSIS 7; POTASSIUM 3.8 mEQ/L (3.4-4.9); SODIUM 137 mEQ/L (135-145); TOTAL PROTEIN 7.4 g/dL (6.6-8.7)
[2017-06-22 12:29] LABS: CKMB 3.2 ng/mL (< 6.7)
[2017-06-22 12:39] LABS: BILIRUBIN,DIRECT 0.3 mg/dL (0.1-0.3)
[2017-06-22 13:00] LABS: BASOPHILS % (AUTO) 0.6 % (0.0-2.0); EOSINOPHILS % (AUTO) 1.1 % (0.0-3.0); LYMPHOCYTES % (AUTO) 17.2 % (20.0-45.0); MEAN CORPUSCULAR HEMOGLOBIN 28.8 PG (27.0-31.0); MEAN CORPUSCULAR HGB CONC 31.1 G/DL (32.0-36.0); MEAN CORPUSCULAR VOLUME 93 FL (80-99); MEAN PLATELET VOLUME 9.3 FL (6.5-10.1); MONOCYTES % (AUTO) 4.7 % (1.0-10.0); NEUTROPHILS % (AUTO) 76.4 % (45.0-75.0); PLATELET COUNT 222 K/UL (150-450); RED BLOOD COUNT 4.78 M/UL (4.70-6.10); RED CELL DISTRIBUTION WIDTH 15.5 % (11.6-14.8); WHITE BLOOD COUNT 13.1 K/UL (4.8-10.8)
[2017-06-22] MEDS ORDERED: COREG3.125 MG ORAL (13:36)
[2017-06-22] MEDS ORDERED: PEPCID COMPLET1 EACH PO (13:36)
[2017-06-22] MEDS ORDERED: FUROSEMIDE40 MG ORAL (13:36)
[2017-06-22 13:53] VITALS: BP 150/75
--- NOTE | 2017-06-22 15:12 | Diagnostic Imaging Report ---
Indication: SOB Technique: One view of the chest Comparison: none Findings: The heart is borderline enlarged. Lungs and pleural spaces are clear. Previously demonstrated parenchymal disease is no longer evident. Impression: Borderline cardiomegaly. No acute process
== END 2017-06-22 13:53 | disposition home or self-care (01) ==
LOC: EMR 11:31
DX: I50.9 Heart failure, unspecified (principal); I25.10 Atherosclerotic heart disease of native coronary artery without angina pectoris
CPT/HCPCS: 36415; 71010; 80053; 82248; 82550; 82553; 83880; 84484; 85025; 93005; 96374; 99284; J1940

== ENCOUNTER 2017-07-26 23:28 | Emergency (ER) | payer MEDICAID, OTHER ==
[~2017-07-26] VITALS: Ht 172.7 cm; Wt 90.7 kg
[2017-07-26 23:48] VITALS: BP 142/85
[2017-07-27] MEDS ORDERED: Furosemide 40mg tab ORAL ONE
[2017-07-27] MEDS ORDERED: Norco 5mg/325mg tab ORAL ONE
[2017-07-27] MEDS ORDERED: FUROSEMIDE40 MG ORAL (00:08)
[2017-07-27] MEDS ORDERED: COREG3.125 MG ORAL (00:08)
--- NOTE | 2017-07-27 00:09 | Emergency Room Report ---
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 Also history of heart failure. He is noncompliant with medication. Said his been out for a week. Denies any fever chills denies any nausea vomiting. He present here today with chief complaint of anger pain. He said he swollen and the ring on his fingers cutting of blood flow. Worse today. Denies any other complaint. No shortness of breath. No chest pain. No nausea or vomiting. No exertional component. Allergies: Coded Allergies: No Known Allergies (Unverified , 08/25/13) Patient History Past Medical History: see triage record, old chart reviewed Past Surgical History: other Pertinent Family History: none Social History: Reports: smoking, alcohol use, drug use Immunizations: other Reviewed Nursing Documentation: PMH: Agreed, PSxH: Agreed Nursing Documentation-PMH Hx Cardiac Problems: Yes - CHF Hx Cancer: No Hx Gastrointestinal Problems: No Review of Systems Eye: Denies: eye pain, blurred vision ENT: Denies: ear pain, nose congestion, throat swelling Respiratory: Denies: cough, shortness of breath Cardiovascular: Denies: chest pain, palpitations Gastrointestinal: Denies: abdominal pain, diarrhea, nausea, vomiting Musculoskeletal: Denies: back pain, joint pain Skin: Denies: rash Neurological: Denies: headache, numbness Endocrine: Denies: increased thirst, increased urine Hematologic/Lymphatic: Denies: easy bruising All Other Systems: negative except mentioned in HPI Physical Exam Vital Signs Date Time Temp Pulse Resp B/P (MAP) Pulse Ox O2 Delivery O2 Flow Rate FiO2 07/26/17 23:36 98.2 98 18 142/85 98 vitals normal Sp02 EP Interpretation: reviewed, normal General Appearance: well appearing, no apparent distress, alert Head: normocephalic, atraumatic Eyes: bilateral eye PERRL, bilateral eye EOMI ENT: hearing grossly normal, normal pharynx Neck: full range of motion, supple, no meningismus Respiratory: chest non-tender, lungs clear, normal breath sounds Cardiovascular #1: regular rate, rhythm, no murmur Gastrointestinal: normal bowel sounds, non tender, no mass, no organomegaly, no bruit, non-distended Musculoskeletal: back normal, gait/station normal, normal range of motion, other - He has a ring on his right fourth finger and is slightly tight. Is at the [place] this right fifth finger which is very tight. There is some mild redness. No fever or chills. He hasn't been on the left third finger which is also a little tight. Psychiatric: mood/affect normal Skin: warm/dry Procedures Additional Procedure Procedure Narrative Procedure: Foreign body extraction Indication: Foreign body Discussion: Using a ring cutter to remove all 3 rings without much difficulty. Patient tolerated procedure without a problem. He felt better. Medical Decision Making Diagnostic Impression: Primary Impression: Acute on chronic diastolic (congestive) heart failure Additional Impressions: Amphetamine abuse Foreign body ER Course Patient presents with exacerbation of his chronic heart failure. We'll put her back on his medicine. He also has tightness of the ring to the finger. He removed them with mild difficulty. He felt better now. We'll discharge home. Last Vital Signs Date Time Temp Pulse Resp B/P (MAP) Pulse Ox O2 Delivery O2 Flow Rate FiO2 07/26/17 23:48 98.2 76 18 142/85 98 Status: improved Disposition: HOME, SELF-CARE Condition: Stable Scripts Carvedilol (Coreg) 3.125 Mg Tablet 3.125 MG ORAL EVERY 12 HOURS, #60 TAB Prov: KARISSA DOUGHERTY M.D. 07/27/17 Furosemide* (LASIX*) 40 Mg Tablet 40 MG ORAL DAILY, #60 TAB Prov: KARISSA DOUGHERTY M.D. 07/27/17 Additional Instructions: Some using drugs and alcohol. Take your medication. Return it worse. KARISSA DOUGHERTY M.D. Jul 27, 2017 00:09
[2017-07-27 00:17] VITALS: BP 142/85
== END 2017-07-27 00:17 | disposition home or self-care (01) ==
LOC: EMR 23:50
DX: I50.33 Acute on chronic diastolic (congestive) heart failure (principal); F15.10 Other stimulant abuse, uncomplicated; S60.454A Superficial foreign body of right ring finger, initial encounter; X58.XXXA Exposure to other specified factors, initial encounter; Y93.9 Activity, unspecified; Y92.9 Unspecified place or not applicable; F17.200 Nicotine dependence, unspecified, uncomplicated; I42.9 Cardiomyopathy, unspecified
CPT/HCPCS: 99284

== ENCOUNTER 2017-10-14 02:49 | Emergency (ER) | payer OTHER ==
[~2017-10-14] VITALS: Ht 172.7 cm; Wt 90.7 kg
--- NOTE | 2017-10-14 03:11 | Emergency Room Report ---
History of Present Illness General Chief Complaint: Dyspnea/Respdistress Source: Patient Present Illness HPI This is a 37-year-old male with a history of methamphetamine abuse and cardiomyopathy with ejection fraction of 20%. Patient has been using his medication. He ran out for couple days. He came in with chief complaint of shortness of breath. Increasing edema. No nausea no vomiting. No chest pain. Worse with exertion. Worse with laying flat. Similar symptoms in the past. I have Seen him several times already. Allergies: Coded Allergies: No Known Allergies (Unverified , 08/25/13) Patient History Past Medical History: see triage record, old chart reviewed, CHF Past Surgical History: other Pertinent Family History: none Social History: Reports: drug use Immunizations: other Reviewed Nursing Documentation: PMH: Agreed, PSxH: Agreed Nursing Documentation-PMH Hx Cardiac Problems: Yes - CHF Hx Cancer: No Hx Gastrointestinal Problems: No Review of Systems Eye: Denies: eye pain, blurred vision ENT: Denies: ear pain, nose congestion, throat swelling Respiratory: Reports: shortness of breath, Denies: cough Cardiovascular: Denies: chest pain, palpitations Gastrointestinal: Denies: abdominal pain, diarrhea, nausea, vomiting Musculoskeletal: Denies: back pain, joint pain Skin: Denies: rash Neurological: Denies: headache, numbness Endocrine: Denies: increased thirst, increased urine Hematologic/Lymphatic: Denies: easy bruising All Other Systems: negative except mentioned in HPI Physical Exam Vital Signs Date Time Temp Pulse Resp B/P (MAP) Pulse Ox O2 Delivery O2 Flow Rate FiO2 10/14/17 02:53 97.5 123 22 135/93 92 Room Air vitals with tachycardia and hypoxia Sp02 EP Interpretation: reviewed, abnormal General Appearance: well appearing, no apparent distress, alert Head: normocephalic, atraumatic Eyes: bilateral eye PERRL, bilateral eye EOMI ENT: hearing grossly normal, normal pharynx Neck: full range of motion, supple, no meningismus Respiratory: chest non-tender, rales Cardiovascular #1: regular rate, rhythm, no murmur Gastrointestinal: normal bowel sounds, non tender, no mass, no organomegaly, no bruit, non-distended Musculoskeletal: back normal, normal range of motion, swelling - 2+ edema Psychiatric: mood/affect normal Skin: warm/dry Medical Decision Making Diagnostic Impression: Primary Impression: Acute on chronic diastolic (congestive) heart failure Additional Impressions: Amphetamine abuse Proteinuria Qualified Codes: R80.9 - Proteinuria, unspecified Noncompliance Cardiomyopathy Qualified Codes: I42.7 - Cardiomyopathy due to drug and external agent ER Course Patient presents with CHF exacerbation. Probably secondary to noncompliance and drug abuse. His cardiomyopathy is probably secondary to substance abuse. Last echocardiogram showing ejection fraction of only 20%. He would benefit from an AICD due to high risk of sudden . Patient diuresed about 1 L but still dyspneic. Because of this, will admit for further diuresis. No evidence of ACS, PE, dissection, pneumonia to name a few. Patient will be admitted here under service of Dr. Cote or transfer based on insurance. Laboratory Tests Test 10/14/17 03:21 10/14/17 03:27 White Blood Count 11.2 K/UL (4.8-10.8) H Red Blood Count 4.29 M/UL (4.70-6.10) L Hemoglobin 13.0 G/DL (14.2-18.0) L Hematocrit 40.6 % (42.0-52.0) L Mean Corpuscular Volume 95 FL (80-99) Mean Corpuscular Hemoglobin 30.3 PG (27.0-31.0) Mean Corpuscular Hemoglobin Concent 32.0 G/DL (32.0-36.0) Red Cell Distribution Width 13.0 % (11.6-14.8) Platelet Count 156 K/UL (150-450) Mean Platelet Volume 10.7 FL (6.5-10.1) H Neutrophils (%) (Auto) 67.5 % (45.0-75.0) Lymphocytes (%) (Auto) 25.2 % (20.0-45.0) Monocytes (%) (Auto) 5.8 % (1.0-10.0) Eosinophils (%) (Auto) 1.1 % (0.0-3.0) Basophils (%) (Auto) 0.4 % (0.0-2.0) Sodium Level 139 MMOL/L (136-145) Potassium Level 3.9 MMOL/L (3.5-5.1) Chloride Level 105 MMOL/L (98-107) Carbon Dioxide Level 30 MMOL/L (21-32) Anion Gap 4 mmol/L (5-15) L Blood Urea Nitrogen 14 mg/dL (7-18) Creatinine 1.0 MG/DL (0.55-1.30) Estimat Glomerular Filtration Rate > 60 mL/min (>60) Glucose Level 115 MG/DL (74-106) H Calcium Level 8.6 MG/DL (8.5-10.1) Total Bilirubin 0.6 MG/DL (0.2-1.0) Aspartate Amino Transf (AST/SGOT) 45 U/L (15-37) H Alanine Aminotransferase (ALT/SGPT) 55 U/L (12-78) Alkaline Phosphatase 145 U/L (46-116) H Troponin I 0.041 ng/mL (0.000-0.056) Pro-B-Type Natriuretic Peptide 3047 pg/mL (0-125) H Total Protein 6.9 G/DL (6.4-8.2) Albumin 2.9 G/DL (3.4-5.0) L Globulin 4.0 g/dL Albumin/Globulin Ratio 0.7 (1.0-2.7) L Urine Color Yellow Urine Appearance Clear Urine pH 6 (4.5-8.0) Urine Specific [place] 1.020 (1.005-1.035) Urine Protein 2+ (NEGATIVE) H Urine Glucose (UA) Negative (NEGATIVE) Urine Ketones Negative (NEGATIVE) Urine Occult Blood Negative (NEGATIVE) Urine Nitrite Negative (NEGATIVE) Urine Bilirubin Negative (NEGATIVE) Urine Urobilinogen 4 MG/DL (0.0-1.0) H Urine Leukocyte Esterase 1+ (NEGATIVE) H Urine RBC 0-2 /HPF (0 - 0) H Urine WBC 0-2 /HPF (0 - 0) Urine Squamous Epithelial Cells None /LPF (NONE/OCC) Urine Bacteria None /HPF (NONE) Urine Opiates Screen Negative (NEGATIVE) Urine Barbiturates Screen Negative (NEGATIVE) Phencyclidine (PCP) Screen Negative (NEGATIVE) Urine Amphetamines Screen Positive (NEGATIVE) H Urine Benzodiazepines Screen Positive (NEGATIVE) H Urine Cocaine Screen Negative (NEGATIVE) Urine Marijuana (THC) Screen Positive (NEGATIVE) H Lab Results Impression labs with elevated BNP EKG Diagnostic Results Rate: normal Rhythm: NSR ST Segments: no acute changes Rhythm Strip Diag. Results Rhythm Strip Time: 04:34 EP Interpretation: yes Rate: 93 Rhythm: NSR, no PVC's, no ectopy Chest X-Ray Diagnostic Results Chest X-Ray Diagnostic Results : Chest X-Ray Ordered: Yes # of Views/Limited/Complete: 1 View Indication: Shortness of Breath EP Interpretation: Yes Interpretation: no consolidation, no effusion, no pneumothorax, other - CM with vascular congestion Impression: Other - chf Electronically Signed by: Eliel Loyola MD Last Vital Signs Date Time Temp Pulse Resp B/P (MAP) Pulse Ox O2 Delivery O2 Flow Rate FiO2 10/14/17 03:02 123 22 Room Air 10/14/17 02:53 97.5 135/93 92 Status: improved Disposition: ADMITTED INPATIENT Condition: Serious ELIEL LOYOLA M.D. Oct 14, 2017 03:10
[2017-10-14 03:39] LABS: BASOPHILS % (AUTO) 0.4 % (0.0-2.0); EOSINOPHILS % (AUTO) 1.1 % (0.0-3.0); LYMPHOCYTES % (AUTO) 25.2 % (20.0-45.0); MEAN CORPUSCULAR HEMOGLOBIN 30.3 PG (27.0-31.0); MEAN CORPUSCULAR VOLUME 95 FL (80-99); MEAN PLATELET VOLUME 10.7 FL (6.5-10.1); MONOCYTES % (AUTO) 5.8 % (1.0-10.0); NEUTROPHILS % (AUTO) 67.5 % (45.0-75.0); PLATELET COUNT 156 K/UL (150-450); RED BLOOD COUNT 4.29 M/UL (4.70-6.10); WHITE BLOOD COUNT 11.2 K/UL (4.8-10.8)
[2017-10-14 03:45] LABS: APPEARANCE,URINE CLEAR; KETONES,URINE NEGATIVE (NEGATIVE); LEUKOCYTE ESTERASE ,URINE 1+ (NEGATIVE); NITRITE,URINE NEGATIVE (NEGATIVE); PH,URINE 6 (4.5-8.0); PROTEIN,URINE 2+ (NEGATIVE); UROBILINOGEN,URINE 4 MG/DL (0.0-1.0)
[2017-10-14 03:54] LABS: ANION GAP 4 mmol/L (5-15); CALCIUM 8.6 MG/DL (8.5-10.1); CARBON DIOXIDE 30 MMOL/L (21-32); CHLORIDE 105 MMOL/L (98-107); GLOMERULAR FILTRATION RATE > 60 mL/min (>60); POTASSIUM 3.9 MMOL/L (3.5-5.1); SODIUM 139 MMOL/L (136-145)
[2017-10-14 03:56] LABS: RBC,URINE 0-2 /HPF (0 - 0); WBC,URINE 0-2 /HPF (0 - 0)
[2017-10-14 04:05] LABS: ALANINE AMINOTRANSFERASE 55 U/L (12-78); ALBUMIN/GLOBULIN RATIO 0.7 (1.0-2.7); ASPARTATE AMINO TRANSFERASE 45 U/L (15-37); TOTAL PROTEIN 6.9 G/DL (6.4-8.2)
[2017-10-14 05:32] VITALS: BP 142/89
[2017-10-14 07:34] VITALS: BP 139/85
--- NOTE | 2017-10-14 10:56 | Diagnostic Imaging Report ---
Indication: SOB Technique: One view of the chest Comparison: 06/22/2017 Findings: The heart is markedly enlarged. There is there was mild interstitial congestion which appears similar to the previous exam. No focal airspace consolidation. Pleural spaces are clear Impression: Cardiomegaly with mild interstitial congestion
--- NOTE | 2017-10-16 16:21 | Cardiology Report ---
APPROVED REPORT EKG Measurement Heart [id number] Sinus tachycardia Possible Anterior infarct, age undetermined Abnormal ECG
== END 2017-10-14 08:13 | disposition short-term general hospital (02) ==
LOC: EMR 04:12 → EDBEDREQ 04:27 → EMR 08:13
DX: I50.33 Acute on chronic diastolic (congestive) heart failure (principal); F15.10 Other stimulant abuse, uncomplicated; R80.9 Proteinuria, unspecified; Z91.14 Patient's other noncompliance with medication regimen; I42.7 Cardiomyopathy due to drug and external agent; R09.02 Hypoxemia; R00.0 Tachycardia, unspecified
CPT/HCPCS: 36415; 71010; 80053; 80307; 81003; 83880; 84484; 85025; 93005; 96374; 99285; J1940

== ENCOUNTER 2017-12-30 11:34 | Emergency (ER) | payer OTHER ==
[~2017-12-30] VITALS: Ht 172.7 cm; Wt 113.4 kg
--- NOTE | 2017-12-30 14:21 | Emergency Room Report ---
History of Present Illness General Chief Complaint: Lower Extremity Injury Source: Patient Present Illness HPI 37-year-old male presents to the emergency department complaining of progressive swelling in the left knee since yesterday. Patient reports that he fell and sustained injury approximately one year ago. Patient denies recent trauma or fall otherwise. Patient reports bilateral 10 in severity pain localized to left anterior knee that is exacerbated upon standing. He reports deformities/swelling that is visible. Denies fevers, chills, erythema, bruising or open wounds. Denies numbness tingling or loss of sensation or gross motor movements of the extremities, incontinence of bowel or bladder. Denies CP , Palpitations, LOC, AMS, dizziness, Changes in Vision, Sensation, paresthesias , or a sudden severe headache. Allergies: Coded Allergies: No Known Allergies (Unverified , 08/25/13) Patient History Past Medical History: see triage record Past Surgical History: none Pertinent Family History: none Immunizations: UTD Reviewed Nursing Documentation: PMH: Agreed, PSxH: Agreed Nursing Documentation-PMH Past Medical History: No History, Except For Hx Cardiac Problems: Yes - CHF Hx Cancer: No Hx Gastrointestinal Problems: No Review of Systems All Other Systems: negative except mentioned in HPI Physical Exam Vital Signs Date Time Temp Pulse Resp B/P (MAP) Pulse Ox O2 Delivery O2 Flow Rate FiO2 12/30/17 11:54 97.4 99 20 137/83 98 Room Air 97.3 Sp02 EP Interpretation: reviewed, normal General Appearance: no apparent distress, alert, GCS 15, non-toxic Head: normocephalic, atraumatic ENT: hearing grossly normal, normal voice Neck: full range of motion Respiratory: lungs clear, normal breath sounds, speaking full sentences Cardiovascular #1: regular rate, rhythm Musculoskeletal: back normal, gait/station normal, normal range of motion, tender - mild anterior left knee ttp, obvious deformity of the left knee, negative drawer sign, no obvious increased laxity, FROM. Neurologic: alert, oriented x3, responsive, motor strength/tone normal, sensory intact, speech normal, grossly normal Psychiatric: judgement/insight normal Skin: normal color, no rash, warm/dry, well hydrated Medical Decision Making PA Attestation Dr. Mendez is my supervising Physician whom patient management has been discussed with. Diagnostic Impression: Primary Impression: Patella román Additional Impression: Patellar tendon rupture Qualified Codes: S86.812A - Strain of other muscle(s) and tendon(s) at lower leg level, left leg, initial encounter ER Course 37-year-old male presents to the emergency department complaining of progressive swelling in the left knee since yesterday. Patient reports that he fell and sustained injury approximately one year ago. Patient denies recent trauma or fall otherwise. Patient reports bilateral 10 in severity pain localized to left anterior knee that is exacerbated upon standing. He reports deformities/swelling that is visible. Denies fevers, chills, erythema, bruising or open wounds. Denies numbness tingling or loss of sensation or gross motor movements of the extremities, incontinence of bowel or bladder. Denies CP , Palpitations, LOC, AMS, dizziness, Changes in Vision, Sensation, paresthesias , or a sudden severe headache. Ddx considered but are not limited to Fracture, dislocation, contusion, Sprain/ Strain/Spasm, tendon rupture to name a few. Vital signs: are WNL, pt. is afebrile H&PE are most consistent with musculoskeletal injury will perform imaging to r/ o fractures/dislocations. ORDERS: - X-ray Left KNEE 3 views - impression: abnormal--high riding patella per preliminary read in ED, and signed by KATI Walker, my supervising physician has reviewed, and agrees with my interpretation. ED INTERVENTIONS: -- Knee Immobilizer Splint applied to the left knee by avionics repair technician. Pt. remains neurovascularly intact. -Patient is provided with crutches and instructed on their use pt. placed in knee immobilizer and d/w pt. follow up with digital advertising specialist DISCHARGE: At this time pt. is stable for d/c to home. Will provide printed patient care instructions, and any necessary prescriptions. Care plan and follow up instructions have been discussed with the patient prior to discharge. Other X-Ray Diagnostic Results Other X-Ray Diagnostic Results : X-Ray ordered: Left knEE # of Views/Limited Vs Complete: 3 View Indication: Swelling PA Xray: Interpretation reviewed, by supervising MD, and agrees with findings. Interpretation: no dislocation, no fractures, other - HIgh Riding Patella Impression: Other - Abnormal- evidence to suggest patellar tendon rupture- high riding patella Electronically Signed by: Carissa Walker PA-C Last Vital Signs Date Time Temp Pulse Resp B/P (MAP) Pulse Ox O2 Delivery O2 Flow Rate FiO2 12/30/17 11:54 97.4 99 20 137/83 98 Room Air 97.3 Disposition: HOME, SELF-CARE Condition: Stable Scripts Furosemide* (LASIX*) 40 Mg Tablet 40 MG ORAL DAILY, #10 TAB Prov: Carissa Walker 12/30/17 Acetaminophen* (TYLENOL EXTRA STRENGTH*) 500 Mg Tablet 500 MG ORAL Q6H Y for For Pain, #20 TAB 0 Refills Prov: Carissa Walker 12/30/17 Referrals: [facility],REFERRING (PCP) Patient Instructions: Knee Pain Additional Instructions: Take medications as directed. Follow up with an RHIT in 3-5 days, even if your symptoms have resolved. --Please review list of primary care clinics, if you do not already have a primary care provider Return sooner to ED if new symptoms occur, or current symptoms become worse. - Please note that this Emergency Department Report was dictated using [employer] checker technology software, occasionally this can lead to erroneous entry secondary to interpretation by the dictation equipment. Carissa Walker Dec 30, 2017 14:20
[2017-12-30] MEDS ORDERED: TYLENOL EXTRA500 MG ORAL (14:23)
--- NOTE | 2017-12-30 14:29 | Diagnostic Imaging Report ---
Indication: Pain 3 views of the left knee were obtained. Findings: The patella is extremely high riding which is indicative of a patellar tendon rupture. Acuity of this injury is not known. Please correlate clinically. The bones are osteopenic. There is mild narrowing of the joint space. IMPRESSION: Suspected patellar tendon rupture. Please correlate clinically
[2017-12-30] MEDS ORDERED: FUROSEMIDE40 MG ORAL (14:40)
[2017-12-30 15:38] VITALS: BP 137/83
== END 2017-12-30 14:50 | disposition home or self-care (01) ==
LOC: EMR 12:20
DX: S76.112A Strain of left quadriceps muscle, fascia and tendon, initial encounter (principal); X58.XXXA Exposure to other specified factors, initial encounter; Y92.9 Unspecified place or not applicable; I50.9 Heart failure, unspecified
CPT/HCPCS: 99284

== ENCOUNTER 2018-02-15 03:20 | Emergency (ER) | payer OTHER ==
[~2018-02-15] VITALS: Ht 175.3 cm; Wt 114.3 kg
[~2018-02-15 03:20] MED LIST changes: +TYLENOL EXTRA500 MG ORAL
[2018-02-15 03:47] VITALS: BP 117/87
[2018-02-15] MEDS: Furosemide 40mg tab ORAL ONE (03:55)
--- NOTE | 2018-02-15 04:30 | Emergency Room Report ---
History of Present Illness General Chief Complaint: Edema Source: Patient Present Illness HPI Patient presents with complaints of swelling to his legs Denies any headache denies any chest pain or shortness of breath Denies any back or flank pain Patient does not know why he has swelling On further questioning he does report that he has been off his water pills for about one month Patient also reports that his heart is working at 20% On evaluation of medical records patient does have history of EF of 20% Allergies: Coded Allergies: No Known Allergies (Unverified , 08/25/13) Patient History Past Medical History: see triage record Pertinent Family History: none Reviewed Nursing Documentation: PMH: Agreed; PSxH: Agreed Nursing Documentation-PMH Hx Cardiac Problems: Yes - CHF Hx Cancer: No Hx Gastrointestinal Problems: No Review of Systems All Other Systems: negative except mentioned in HPI Physical Exam Vital Signs Date Time Temp Pulse Resp B/P (MAP) Pulse Ox O2 Delivery O2 Flow Rate FiO2 02/15/18 03:25 97.9 110 20 95 Room Air 97.9 02/15/18 03:47 117/87 Sp02 EP Interpretation: reviewed, normal General Appearance: well appearing, no apparent distress Head: normocephalic, atraumatic Eyes: bilateral eye PERRL, bilateral eye EOMI ENT: hearing grossly normal, normal pharynx, TMs + canals normal, uvula midline Neck: full range of motion, supple, no meningismus, no bony tend Respiratory: lungs clear, normal breath sounds, no rhonchi, no respiratory distress, no retraction, no accessory muscle use Cardiovascular #1: normal peripheral pulses, regular rate, rhythm, no gallop, no JVD, other - Holosystolic Gastrointestinal: normal bowel sounds, non tender, soft, no mass, no organomegaly, non-distended, no guarding, no hernia, no pulsatile mass, no rebound Genitourinary: no CVA tenderness Musculoskeletal: normal inspection Neurologic: oriented x3, responsive, program counselor III-XII nml as tested, motor strength/ tone normal, sensory intact Psychiatric: mood/affect normal Skin: other - Dependent edema both lower legs Lymphatic: normal inspection, no adenopathy Medical Decision Making Diagnostic Impression: Primary Impression: Edema ER Course Multiple differentials considered Patient was provided with diuretics in the ER Patient saturating well respirations are appropriate does not show any obvious acute signs of acute CHF Patient has been fairly noncompliant with his medications Requires improved compliance and improved outpatient evaluation Rhythm Strip Diag. Results EP Interpretation: yes Rate: 95 Rhythm: NSR, no PVC's, no ectopy Last Vital Signs Date Time Temp Pulse Resp B/P (MAP) Pulse Ox O2 Delivery O2 Flow Rate FiO2 02/15/18 03:47 97.9 112 20 117/87 95 Room Air 97.9 Status: improved Disposition: HOME, SELF-CARE Condition: Improved Scripts Furosemide* (LASIX*) 40 Mg Tablet 20 MG ORAL BID, #20 TAB Prov: Arnulfo Wilkinson DO 02/15/18 Referrals: [facility],REFERRING (PCP) Additional Instructions: Patient is provided with the discharge instructions notified to follow up with primary doctor in the next 2-3 days otherwise return to the er with any worsening symptoms. Please note that this report is being documented using [employer] technology. This can lead to erroneous entry secondary to incorrect interpretation by the dictating instrument. Arnulfo Wilkinson DO Feb 15, 2018 04:30
[2018-02-15] MEDS ORDERED: FUROSEMIDE40 MG ORAL (04:31)
[2018-02-15 04:44] VITALS: BP 122/72
[2018-02-15 04:52] VITALS: BP 122/72
== END 2018-02-15 04:52 | disposition home or self-care (01) ==
LOC: EMR 03:40
DX: R60.0 Localized edema (principal); I50.9 Heart failure, unspecified
CPT/HCPCS: 99283

== ENCOUNTER 2018-02-22 05:58 | Emergency (ER) | payer OTHER ==
[~2018-02-22] VITALS: Ht 175.3 cm; Wt 114.3 kg
[~2018-02-22 05:58] MED LIST changes: +FUROSEMIDE20 M1 ORAL
[2018-02-22 06:07] VITALS: BP 120/85
--- NOTE | 2018-02-22 06:17 | Emergency Room Report ---
History of Present Illness General Chief Complaint: Pain Source: Patient, Medical Record, EMS Present Illness HPI This is a 37-year-old male known to me. He has a history of cardiomyopathy secondary to drug abuse. His ejection fraction around 20%. He is noncompliant with his medication. He presents with chief complaint of leg cramping and swelling. He said he has been taking his Lasix but doesn't know the dose. He admitted to using it today but vague about in the past week. He denies any nausea vomiting. Pain is 9 out of 10 crampy in nature. Denies methamphetamine abuse saying that other people around him smoke. He is noncompliant with his medication because he said he is not 79 years old and does not need medication. Allergies: Coded Allergies: No Known Allergies (Unverified , 08/25/13) Patient History Past Medical History: see triage record, old chart reviewed Past Surgical History: other Pertinent Family History: none Social History: Reports: smoking, alcohol use, drug use Immunizations: other Reviewed Nursing Documentation: PMH: Agreed; PSxH: Agreed Nursing Documentation-PMH Past Medical History: No History, Except For Hx Cardiac Problems: Yes - CHF Hx Cancer: No Hx Gastrointestinal Problems: No Review of Systems Eye: Denies: eye pain, blurred vision ENT: Denies: ear pain, nose congestion, throat swelling Respiratory: Denies: cough, shortness of breath Cardiovascular: Denies: chest pain, palpitations Gastrointestinal: Denies: abdominal pain, diarrhea, nausea, vomiting Musculoskeletal: Reports: muscle pain, muscle stiffness; Denies: back pain, joint pain Skin: Denies: rash Neurological: Denies: headache, numbness Endocrine: Denies: increased thirst, increased urine Hematologic/Lymphatic: Denies: easy bruising All Other Systems: negative except mentioned in HPI Physical Exam Vital Signs Date Time Temp Pulse Resp B/P (MAP) Pulse Ox O2 Delivery O2 Flow Rate FiO2 02/22/18 05:54 98.6 100 16 117/72 98 Room Air 98.6 vitals normal Sp02 EP Interpretation: reviewed, normal General Appearance: well appearing, no apparent distress, alert Head: normocephalic, atraumatic Eyes: bilateral eye PERRL, bilateral eye EOMI ENT: hearing grossly normal, normal pharynx Neck: full range of motion, supple, no meningismus Respiratory: chest non-tender, lungs clear, normal breath sounds Cardiovascular #1: regular rate, rhythm, no murmur Gastrointestinal: normal bowel sounds, non tender, no mass, no organomegaly, no bruit, non-distended Musculoskeletal: back normal, gait/station normal, normal range of motion, swelling - 2+ pitting edema Psychiatric: mood/affect normal Skin: warm/dry Medical Decision Making Diagnostic Impression: Primary Impression: Acute on chronic diastolic (congestive) heart failure Additional Impression: Amphetamine abuse ER Course Patient presents with acute exacerbation of CHF secondary to noncompliance with medication. Also worsened by drug abuse. Labs pending. I will sign this patient out to Dr. Alejo for final disposition. Most likely will be discharged home since patient doesn't want to stay in the hospital. EKG Diagnostic Results Rate: normal, tachycardiac Rhythm: NSR ST Segments: other - NSST changes Rhythm Strip Diag. Results Rhythm Strip Time: 06:31 EP Interpretation: yes Rate: 100 Rhythm: NSR, no PVC's, no ectopy Chest X-Ray Diagnostic Results Chest X-Ray Diagnostic Results : Chest X-Ray Ordered: Yes # of Views/Limited/Complete: 1 View Indication: Shortness of Breath EP Interpretation: Yes Interpretation: no consolidation, no effusion, no pneumothorax, other - CM with mild vasc congestion Impression: Other - CM Electronically Signed by: Eliel Dougherty MD Last Vital Signs Date Time Temp Pulse Resp B/P (MAP) Pulse Ox O2 Delivery O2 Flow Rate FiO2 02/22/18 05:54 98.6 100 16 117/72 98 Room Air 98.6 Status: improved Disposition: HOME, SELF-CARE Referrals: [facility],REFERRING (PCP) ELIEL DOUGHERTY M.D. Feb 22, 2018 06:17
[2018-02-22 06:45] LABS: BASOPHILS % (AUTO) 0.6 % (0.0-2.0); EOSINOPHILS % (AUTO) 0.9 % (0.0-3.0); HEMATOCRIT 42.5 % (42.0-52.0); HEMOGLOBIN 14.1 G/DL (14.2-18.0); LYMPHOCYTES % (AUTO) 15.7 % (20.0-45.0); MEAN CORPUSCULAR VOLUME 89 FL (80-99); NEUTROPHILS % (AUTO) 75.7 % (45.0-75.0); PLATELET COUNT 236 K/UL (150-450); RED BLOOD COUNT 4.79 M/UL (4.70-6.10); RED CELL DISTRIBUTION WIDTH 13.5 % (11.6-14.8); WHITE BLOOD COUNT 13.4 K/UL (4.8-10.8)
[2018-02-22] MEDS ORDERED: Aspirin Baby 81mg ORAL ONE (06:45)
[2018-02-22 06:50] LABS: ANION GAP 7 mmol/L (5-15); BLOOD UREA NITROGEN 21 mg/dL (7-18); CALCIUM 8.2 MG/DL (8.5-10.1); CARBON DIOXIDE 27 MMOL/L (21-32); CHLORIDE 103 MMOL/L (98-107); CREATININE 1.4 MG/DL (0.55-1.30); POTASSIUM 3.7 MMOL/L (3.5-5.1); SODIUM 137 MMOL/L (136-145)
--- NOTE | 2018-02-22 06:55 | Emergency Room Report ---
Physical Exam Please see above history and physical by Dr. Loyola. The patient is complaining about pain in his right leg with edema. He has a history of congestive heart failure. He is noncompliant with his medications. Dr. Loyola had ordered Lasix and aspirin. Vital Signs Date Time Temp Pulse Resp B/P (MAP) Pulse Ox O2 Delivery O2 Flow Rate FiO2 02/22/18 05:54 98.6 100 16 117/72 98 Room Air 98.6 Sp02 EP Interpretation: reviewed, normal General Appearance: well appearing, no apparent distress, GCS 15 Head: normocephalic Eyes: bilateral eye PERRL, bilateral eye Scleral Injection ENT: moist mucus membranes Neck: supple Respiratory: lungs clear, normal breath sounds Cardiovascular #1: regular rate, rhythm, edema - bilat Cardiovascular #2: 2+ radial (R) Gastrointestinal: normal inspection, normal bowel sounds, non tender, no mass, non-distended, distended Musculoskeletal: back normal, no calf tenderness, Braulio's Sign negative, swelling - L knee Neurologic: alert, oriented x3, grossly normal Psychiatric: anxious - and demanding pain medicine Skin: warm/dry, abrasions - abdomen. No LE erythema Medical Decision Making Diagnostic Impression: Primary Impression: Acute on chronic diastolic (congestive) heart failure Additional Impressions: Amphetamine abuse Gout Qualified Codes: M10.262 - Drug-induced gout, left knee Muscle spasms of both lower extremities Renal insufficiency ER Course The patient presents with leg edema and pain. He states he needs Lasix and also treatment for his pain. Part of differential is gout with the knee pain and on lasix. Uric acid added. EKG shows normal sinus rhythm without acute changes. Chest x-ray shows cardiomegaly with some mild congestive changes. In addition to the Lasix and aspirin the patient is given [place] for pain. Labs c/w gout. Colchicine given. Dx discussed with patient. Renal insufficiency has been present in past. Exam is against DVT. Patient had 2 episodes of severe muscle cramps. Both treated with ativan with improvement. Patient calm and sleeping. States has lasix at home. Discussed need for stopping amphetamines. Mom came and findings discussed. Also discussed need for specialized CHF clinic (suggested [facility]). Patient stable for outpatient observation and treatment. Laboratory Tests Test 02/22/18 06:19 White Blood Count 13.4 K/UL (4.8-10.8) H Red Blood Count 4.79 M/UL (4.70-6.10) Hemoglobin 14.1 G/DL (14.2-18.0) L Hematocrit 42.5 % (42.0-52.0) Mean Corpuscular Volume 89 FL (80-99) Mean Corpuscular Hemoglobin 29.4 PG (27.0-31.0) Mean Corpuscular Hemoglobin Concent 33.1 G/DL (32.0-36.0) Red Cell Distribution Width 13.5 % (11.6-14.8) Platelet Count 236 K/UL (150-450) Mean Platelet Volume 8.4 FL (6.5-10.1) Neutrophils (%) (Auto) 75.7 % (45.0-75.0) H Lymphocytes (%) (Auto) 15.7 % (20.0-45.0) L Monocytes (%) (Auto) 7.0 % (1.0-10.0) Eosinophils (%) (Auto) 0.9 % (0.0-3.0) Basophils (%) (Auto) 0.6 % (0.0-2.0) Urine Color Pale yellow Urine Appearance Clear Urine pH 6 (4.5-8.0) Urine Specific [place] 1.010 (1.005-1.035) Urine Protein 1+ (NEGATIVE) H Urine Glucose (UA) Negative (NEGATIVE) Urine Ketones Negative (NEGATIVE) Urine Occult Blood Negative (NEGATIVE) Urine Nitrite Negative (NEGATIVE) Urine Bilirubin Negative (NEGATIVE) Urine Urobilinogen Normal MG/DL (0.0-1.0) Urine Leukocyte Esterase Negative (NEGATIVE) Urine RBC 0-2 /HPF (0 - 0) H Urine WBC 0-2 /HPF (0 - 0) Urine Squamous Epithelial Cells Occasional /LPF Urine Bacteria Few /HPF (NONE) Urine Hyaline Casts 2-4 /LPF (NONE) H Sodium Level 137 MMOL/L (136-145) Potassium Level 3.7 MMOL/L (3.5-5.1) Chloride Level 103 MMOL/L (98-107) Carbon Dioxide Level 27 MMOL/L (21-32) Anion Gap 7 mmol/L (5-15) Blood Urea Nitrogen 21 mg/dL (7-18) H Creatinine 1.4 MG/DL (0.55-1.30) H Estimate Glomerular Filtration Rate > 60 mL/min (>60) Glucose Level 105 MG/DL (74-106) Uric Acid 9.2 MG/DL (2.6-7.2) H Calcium Level 8.2 MG/DL (8.5-10.1) L Total Bilirubin 1.4 MG/DL (0.2-1.0) H Direct Bilirubin 0.3 MG/DL (0.0-0.3) Aspartate Amino Transferase (AST) 28 U/L (15-37) Alanine Aminotransferase (ALT) 33 U/L (12-78) Alkaline Phosphatase 154 U/L (46-116) H Troponin I 0.010 ng/mL (0.000-0.056) Pro-B-Type Natriuretic Peptide 1327 pg/mL (0-125) H Total Protein 7.6 G/DL (6.4-8.2) Albumin 3.5 G/DL (3.4-5.0) Globulin 4.1 g/dL Albumin/Globulin Ratio 0.9 (1.0-2.7) L Urine Opiates Screen Negative (NEGATIVE) Urine Barbiturates Screen Negative (NEGATIVE) Phencyclidine (PCP) Screen Negative (NEGATIVE) Urine Amphetamines Screen Positive (NEGATIVE) H Urine Benzodiazepines Screen Negative (NEGATIVE) Urine Cocaine Screen Negative (NEGATIVE) Urine Marijuana (THC) Screen Positive (NEGATIVE) H EKG Diagnostic Results Rate: normal Rhythm: NSR ST Segments: no acute changes Rhythm Strip Diag. Results EP Interpretation: yes Rhythm: NSR, no PVC's, no ectopy Chest X-Ray Diagnostic Results Chest X-Ray Diagnostic Results : Chest X-Ray Ordered: Yes # of Views/Limited/Complete: 1 View Indication: Other Interpretation: no effusion, no pneumothorax, other - Cardiomegaly and mild congestive changes Impression: Other Electronically Signed by: Electronically signed by Roel Alejo MD Last Vital Signs Date Time Temp Pulse Resp B/P (MAP) Pulse Ox O2 Delivery O2 Flow Rate FiO2 02/22/18 12:51 98.2 92 18 124/94 96 Room Air Status: improved Disposition: HOME, SELF-CARE Condition: Improved Scripts Colchicine (Colchicine) 0.6 Mg Capsule 0.6 MG PO BID PRN for joint pain, #14 CAP Prov: Roel Alejo M.D. 02/22/18 Methocarbamol* (ROBAXIN*) 500 Mg Tablet 500 MG PO TID PRN for muscle spasms, #12 TAB 0 Refills Prov: Roel Alejo M.D. 02/22/18 Tramadol Hcl* (ULTRAM*) 50 Mg Tablet 50 MG ORAL Q6H PRN for For Pain, #10 TAB 0 Refills Prov: Roel Alejo M.D. 02/22/18 Referrals: [facility],REFERRING (PCP) Roel Alejo M.D. Feb 22, 2018 06:55
[2018-02-22] MEDS ORDERED: Norco 5mg/325mg tab ORAL ONE (07:00)
[2018-02-22 07:04] LABS: ALANINE AMINOTRANSFERASE 33 U/L (12-78); ALBUMIN 3.5 G/DL (3.4-5.0); ALBUMIN/GLOBULIN RATIO 0.9 (1.0-2.7); ALKALINE PHOSPHATASE 154 U/L (46-116); ASPARTATE AMINO TRANSFERASE 28 U/L (15-37); BILIRUBIN,DIRECT 0.3 MG/DL (0.0-0.3); BILIRUBIN,TOTAL 1.4 MG/DL (0.2-1.0)
[2018-02-22 07:05] VITALS: BP 104/74
[2018-02-22 07:11] LABS: APPEARANCE,URINE CLEAR; BILIRUBIN, URINE NEGATIVE (NEGATIVE); COLOR,URINE PALE YELLOW; GLUCOSE, URINE (UA) NEGATIVE (NEGATIVE); KETONES,URINE NEGATIVE (NEGATIVE); LEUKOCYTE ESTERASE ,URINE NEGATIVE (NEGATIVE); NITRITE,URINE NEGATIVE (NEGATIVE); PH,URINE 6 (4.5-8.0); PROTEIN,URINE 1+ (NEGATIVE); UROBILINOGEN,URINE NORMAL MG/DL (0.0-1.0)
[2018-02-22] MEDS ORDERED: LORazepam Inj 2mg/ml 1ml IV ONE ×2 (07:15→08:30)
[2018-02-22 08:00] VITALS: BP 113/85
[2018-02-22 09:00] VITALS: BP 115/75
[2018-02-22 10:00] VITALS: BP 117/80
[2018-02-22] MEDS ORDERED: COLCHICINE0.6 M1 PO (10:47)
[2018-02-22] MEDS ORDERED: ROBAXIN500 MG PO (10:47)
[2018-02-22] MEDS ORDERED: TRAMADOL HCL50 MG ORAL (10:47)
--- NOTE | 2018-02-22 11:07 | Diagnostic Imaging Report ---
Indication: Shortness of breath Technique: One view of the chest Comparison: 10/14/2017 Findings: The heart is enlarged. The lungs and pleural spaces are clear. Previously demonstrated interstitial congestion is no longer evident Impression: Cardiomegaly. No acute process
[2018-02-22 12:51] VITALS: BP 124/94
--- NOTE | 2018-02-23 17:32 | Cardiology Report ---
APPROVED REPORT EKG Measurement Heart [id number] Sinus tachycardia Possible Left atrial enlargement Possible Inferior infarct, age undetermined Cannot rule out Anterior infarct, age undetermined Abnormal ECG
== END 2018-02-22 12:53 | disposition home or self-care (01) ==
LOC: EDBD 05:58 → EMR 06:13
DX: I50.33 Acute on chronic diastolic (congestive) heart failure (principal); F15.10 Other stimulant abuse, uncomplicated; R00.0 Tachycardia, unspecified; M10.262 Drug-induced gout, left knee; N28.9 Disorder of kidney and ureter, unspecified
CPT/HCPCS: 36415; 71045; 80053; 80307; 81003; 82248; 83880; 84484; 84550; 85025; 93005; 96374; 96375; 99284; J1940

== ENCOUNTER 2018-03-06 03:55 | Emergency (ER) | payer OTHER ==
[~2018-03-06] VITALS: Ht 172.7 cm; Wt 113.4 kg
[~2018-03-06 03:55] MED LIST changes: +ROBAXIN500 MG PO
--- NOTE | 2018-03-06 04:28 | Emergency Room Report ---
History of Present Illness General Chief Complaint: Dyspnea/Respdistress Source: Patient, Medical Record Present Illness HPI This patient with h/o cardiomyopathy presents with shortness of breath and abdominal distention. The patient was seen February 22 with knee pain and dyspnea. He was diagnosed with gout. He was prescribed colchicine which has improved his knee pain - denies pain now. He is on Lasix at this time. The patient abuses methamphetamine and is uncertain whether his tox screen will still be positive. The patient gets dyspneic with minimal exertion. The swelling is better since February 22 but still is present. No chest pain. No palpitations or dizziness. The patient denies fever chills vomiting. He's had loose stools brown in color. No depression. No URI sy. No calf pain. Last visit he had severe muscle spasms while in ED treated with morphine and ativan. No dysuria. Allergies: Coded Allergies: No Known Allergies (Unverified , 08/25/13) Patient History Past Medical History: see triage record Social History: Reports: smoking, drug use Social History Narrative Works at [employer] Reviewed Nursing Documentation: PMH: Agreed; PSxH: Agreed Nursing Documentation-PMH Past Medical History: No History, Except For Hx Cardiac Problems: Yes - CHF Hx Cancer: No Hx Gastrointestinal Problems: No Review of Systems All Other Systems: negative except mentioned in HPI Physical Exam Vital Signs Date Time Temp Pulse Resp B/P (MAP) Pulse Ox O2 Delivery O2 Flow Rate FiO2 03/06/18 04:03 98.0 114 21 128/82 96 Room Air 98.1 Sp02 EP Interpretation: reviewed, normal General Appearance: well appearing, no apparent distress, GCS 15 Head: normocephalic Eyes: bilateral eye PERRL, bilateral eye EOMI, bilateral eye Scleral Injection ENT: moist mucus membranes Neck: supple Respiratory: lungs clear, normal breath sounds Cardiovascular #1: regular rate, rhythm, edema Cardiovascular #2: 2+ radial (R) Gastrointestinal: normal inspection, normal bowel sounds, non tender, no mass, distended - mildly, not tympanitic, hepatomegaly Genitourinary: no CVA tenderness Musculoskeletal: back normal, gait/station normal, normal range of motion, other - knee swelling, inflammation and pain less but still present Neurologic: alert, oriented x3, motor strength/tone normal, DTRs symmetric, sensory intact Psychiatric: mood/affect normal Skin: warm/dry, other - leung which were present last visit are somewhat improved Medical Decision Making Diagnostic Impression: Primary Impression: CHF (congestive heart failure) Qualified Codes: I50.43 - Acute on chronic combined systolic (congestive) and diastolic (congestive) heart failure Additional Impression: Amphetamine abuse ER Course Patient presents with abdominal distention and dyspnea on exertion. Differential includes acute myocardial infarction, exacerbation of congestive heart failure gastroenteritis, pancreatitis amongst others. He will be evaluated with EKG, chest x-ray and labs. Given Lasix. EKG without injury. Labs with slightly high WBC, normal CMP, normal troponin, improved uric acid. CXR improved CHF from 02/22. Patient sleeping - supine after treatment. States he has urinated quite a bit. Patient stable for outpatient observation and treatment. Encouraged patient to follow up at CHF clinic (has appointment). Also encouraged MA. Laboratory Tests Test 03/06/18 04:15 03/06/18 04:30 White Blood Count 12.0 K/UL (4.8-10.8) H Red Blood Count 4.67 M/UL (4.70-6.10) L Hemoglobin 13.4 G/DL (14.2-18.0) L Hematocrit 41.7 % (42.0-52.0) L Mean Corpuscular Volume 89 FL (80-99) Mean Corpuscular Hemoglobin 28.6 PG (27.0-31.0) Mean Corpuscular Hemoglobin Concent 32.1 G/DL (32.0-36.0) Red Cell Distribution Width 14.3 % (11.6-14.8) Platelet Count 171 K/UL (150-450) Mean Platelet Volume 11.4 FL (6.5-10.1) H Neutrophils (%) (Auto) 68.1 % (45.0-75.0) Lymphocytes (%) (Auto) 25.2 % (20.0-45.0) Monocytes (%) (Auto) 4.9 % (1.0-10.0) Eosinophils (%) (Auto) 1.2 % (0.0-3.0) Basophils (%) (Auto) 0.6 % (0.0-2.0) Prothrombin Time 11.2 SEC (9.30-11.50) Prothrombin Time INR 1.1 (0.9-1.1) PTT 24 SEC (23-33) Sodium Level 139 MMOL/L (136-145) Potassium Level 3.5 MMOL/L (3.5-5.1) Chloride Level 106 MMOL/L (98-107) Carbon Dioxide Level 22 MMOL/L (21-32) Anion Gap 11 mmol/L (5-15) Blood Urea Nitrogen 22 mg/dL (7-18) H Creatinine 1.3 MG/DL (0.55-1.30) Estimate Glomerular Filtration Rate > 60 mL/min (>60) Glucose Level 145 MG/DL (74-106) H Uric Acid 7.2 MG/DL (2.6-7.2) Calcium Level 8.7 MG/DL (8.5-10.1) Magnesium Level 1.8 MG/DL (1.8-2.4) Total Bilirubin 0.9 MG/DL (0.2-1.0) Aspartate Amino Transferase (AST) 26 U/L (15-37) Alanine Aminotransferase (ALT) 41 U/L (12-78) Alkaline Phosphatase 157 U/L (46-116) H Total Creatine Kinase 147 U/L (26-308) Troponin I 0.023 ng/mL (0.000-0.056) Pro-B-Type Natriuretic Peptide 2346 pg/mL (0-125) H Total Protein 7.5 G/DL (6.4-8.2) Albumin 3.4 G/DL (3.4-5.0) Globulin 4.1 g/dL Albumin/Globulin Ratio 0.8 (1.0-2.7) L Serum Alcohol < 3 mg/dL Urine Color Yellow Urine Appearance Clear Urine pH 5 (4.5-8.0) Urine Specific [place] 1.020 (1.005-1.035) Urine Protein 4+ (NEGATIVE) H Urine Glucose (UA) Negative (NEGATIVE) Urine Ketones Negative (NEGATIVE) Urine Occult Blood Negative (NEGATIVE) Urine Nitrite Negative (NEGATIVE) Urine Bilirubin Negative (NEGATIVE) Urine Urobilinogen 4 MG/DL (0.0-1.0) H Urine Leukocyte Esterase Negative (NEGATIVE) Urine RBC 0-2 /HPF (0 - 0) H Urine WBC 2-4 /HPF (0 - 0) Urine Squamous Epithelial Cells Occasional /LPF Urine Bacteria Few /HPF (NONE) Urine Hyaline Casts 0-2 /LPF (NONE) H Urine Mucus Few /LPF (NONE/OCC) H Urine Opiates Screen Negative (NEGATIVE) Urine Barbiturates Screen Negative (NEGATIVE) Phencyclidine (PCP) Screen Negative (NEGATIVE) Urine Amphetamines Screen Positive (NEGATIVE) H Urine Benzodiazepines Screen Negative (NEGATIVE) Urine Cocaine Screen Negative (NEGATIVE) Urine Marijuana (THC) Screen Positive (NEGATIVE) H EKG Diagnostic Results Rate: tachycardiac Rhythm: NSR ST Segments: no acute changes Rhythm Strip Diag. Results EP Interpretation: yes Rhythm: no PVC's, no ectopy, other - ST Chest X-Ray Diagnostic Results Chest X-Ray Diagnostic Results : Chest X-Ray Ordered: Yes # of Views/Limited/Complete: 1 View Indication: Other EP Interpretation: Yes Interpretation: no consolidation, no effusion, no pneumothorax, other - improved from last CXR Impression: Other - CHF Electronically Signed by: Electronically signed by Roel Alejo MD Last Vital Signs Date Time Temp Pulse Resp B/P (MAP) Pulse Ox O2 Delivery O2 Flow Rate FiO2 03/06/18 09:17 98.1 104 14 102/78 100 Nasal Cannula 2.0 98.1 Status: improved Disposition: HOME, SELF-CARE Condition: Improved Scripts Furosemide* (LASIX*) 40 Mg Tablet 40 MG ORAL DAILY, #20 TAB Prov: Arnulfo Wilkinson DO 03/06/18 Roel Alejo M.D. Mar 06, 2018 04:28
[2018-03-06] MEDS ORDERED: Nitroglycerin 2% oint pkt TOPIC ONE (04:30)
[2018-03-06 05:23] LABS: APPEARANCE,URINE CLEAR; BILIRUBIN, URINE NEGATIVE (NEGATIVE); GLUCOSE, URINE (UA) NEGATIVE (NEGATIVE); KETONES,URINE NEGATIVE (NEGATIVE); LEUKOCYTE ESTERASE ,URINE NEGATIVE (NEGATIVE); NITRITE,URINE NEGATIVE (NEGATIVE); PH,URINE 5 (4.5-8.0); PROTEIN,URINE 4+ (NEGATIVE); UROBILINOGEN,URINE 4 MG/DL (0.0-1.0)
[2018-03-06 05:25] LABS: ANION GAP 11 mmol/L (5-15); BLOOD UREA NITROGEN 22 mg/dL (7-18); CALCIUM 8.7 MG/DL (8.5-10.1); CARBON DIOXIDE 22 MMOL/L (21-32); CHLORIDE 106 MMOL/L (98-107); CREATININE 1.3 MG/DL (0.55-1.30); POTASSIUM 3.5 MMOL/L (3.5-5.1); SODIUM 139 MMOL/L (136-145)
[2018-03-06 05:26] LABS: COLOR,URINE YELLOW
[2018-03-06 05:27] LABS: BASOPHILS % (AUTO) 0.6 % (0.0-2.0); EOSINOPHILS % (AUTO) 1.2 % (0.0-3.0); HEMATOCRIT 41.7 % (42.0-52.0); HEMOGLOBIN 13.4 G/DL (14.2-18.0); LYMPHOCYTES % (AUTO) 25.2 % (20.0-45.0); MEAN CORPUSCULAR VOLUME 89 FL (80-99); MONOCYTES % (AUTO) 4.9 % (1.0-10.0); NEUTROPHILS % (AUTO) 68.1 % (45.0-75.0); PLATELET COUNT 171 K/UL (150-450); RED BLOOD COUNT 4.67 M/UL (4.70-6.10); RED CELL DISTRIBUTION WIDTH 14.3 % (11.6-14.8)
[2018-03-06 05:32] LABS: INR 1.1 (0.9-1.1)
[2018-03-06 05:35] LABS: ALANINE AMINOTRANSFERASE 41 U/L (12-78); ALBUMIN 3.4 G/DL (3.4-5.0); ALBUMIN/GLOBULIN RATIO 0.8 (1.0-2.7); ALKALINE PHOSPHATASE 157 U/L (46-116); ASPARTATE AMINO TRANSFERASE 26 U/L (15-37); BILIRUBIN,TOTAL 0.9 MG/DL (0.2-1.0); CREATINE KINASE 147 U/L (26-308)
[2018-03-06 05:56] VITALS: BP 129/92
--- NOTE | 2018-03-06 08:23 | Diagnostic Imaging Report ---
Indication: Shortness of breath Technique: XRAY Chest 1v Comparison: 02/22/2018 Findings: Cardiac silhouette is prominent. There is pulmonary vascular congestion. There is no consolidation or pleural effusion. Osseous structures are stable. Impression: Cardiomegaly with pulmonary vascular congestion. Clinical correlation/follow-up recommended.
[2018-03-06] MEDS ORDERED: FUROSEMIDE40 MG ORAL (09:11)
[2018-03-06 09:17] VITALS: BP 102/78
== END 2018-03-06 09:35 | disposition home or self-care (01) ==
LOC: EMR 04:35
DX: I50.9 Heart failure, unspecified (principal); F15.10 Other stimulant abuse, uncomplicated
CPT/HCPCS: 36415; 71045; 80053; 80307; 80329; 81003; 82550; 83735; 83880; 84484; 84550; 85025; 85610; 85730; 93005; 96374; 99283; J1940

== ENCOUNTER 2018-03-19 23:00 | Emergency (ER) | payer OTHER ==
[~2018-03-19] VITALS: Ht 172.7 cm; Wt 113.4 kg
[2018-03-19] MEDS ORDERED: Dicyclomine HCl 10mg/5ml oral soln ORAL ONE (23:15)
[2018-03-19] MEDS ORDERED: Lidocaine 2% Visc 15ml soln ORAL ONE (23:15)
--- NOTE | 2018-03-19 23:26 | Emergency Room Report ---
History of Present Illness General Chief Complaint: Abdominal Pain Source: Patient Present Illness HPI Patient is a 38-year-old male who presented after increased vague abdominal pain. Patient reports having generalized abdominal pain for one day. History is markedly limited by patient's poor cooperation. Patient has prior history of cardiomyopathy he states he been out of his Lasix for one day. He reports having some increased difficulty with breathing as well as some increased leg swelling. He denies any fevers.He denies vomiting. Allergies: Coded Allergies: No Known Allergies (Unverified , 08/25/13) Patient History Past Medical History: see triage record Reviewed Nursing Documentation: PMH: Agreed; PSxH: Agreed Nursing Documentation-PMH Past Medical History: No History, Except For Hx Cardiac Problems: Yes - CHF Hx Cancer: No Hx Gastrointestinal Problems: No Review of Systems All Other Systems: negative except mentioned in HPI Physical Exam Vital Signs Date Time Temp Pulse Resp B/P (MAP) Pulse Ox O2 Delivery O2 Flow Rate FiO2 03/19/18 23:06 98.0 105 20 123/84 97 Room Air 98.1 Sp02 EP Interpretation: reviewed, normal General Appearance: normal inspection, well appearing, no apparent distress, alert, GCS 15, obese, Chronically Ill Head: atraumatic ENT: normal ENT inspection, hearing grossly normal, normal voice Neck: normal inspection, full range of motion, supple, no bony tend Respiratory: normal inspection, lungs clear, normal breath sounds, no respiratory distress, no retraction, no wheezing Cardiovascular #1: normal peripheral pulses, regular rate, rhythm, edema Gastrointestinal: normal inspection, normal bowel sounds, non tender, soft, no guarding, no hernia, overweight Genitourinary: no CVA tenderness Musculoskeletal: normal inspection, back normal, normal range of motion Neurologic: normal inspection, alert, oriented x3, responsive, swine genetics researcher III-XII nml as tested, speech normal Psychiatric: normal inspection, judgement/insight normal, mood/affect normal Skin: no rash, other - hand swelling bilaterally mild Medical Decision Making Diagnostic Impression: Primary Impression: CHF (congestive heart failure) Additional Impression: Amphetamine abuse ER Course Patient presented for abdominal pain. Differential diagnoses included ischemic bowel, appendicitis, perforated viscus, abdominal aortic aneurysm, inferior myocardial infarction, viral gastroenteritis. Because of complexity of patient' s case laboratory testing and imaging studies were ordered. I EKG interpreted by me showed sinus tachycardia with a rate of [address] changes. Patient was given IV Lasix due to fluid overload. The patient noted to have a mildly elevated white blood count. Patient was noted to have improvement in symptoms. Patient adequately diuresed. Patient was discharged home. Patient was advised to follow up with his manager intern in 1 day for recheck. Labs Test 03/19/18 23:05 03/19/18 23:40 Urine Color Yellow Urine Appearance Clear Urine pH 6 (4.5-8.0) Urine Specific [place] 1.020 (1.005-1.035) Urine Protein 4+ (NEGATIVE) Urine Glucose (UA) Negative (NEGATIVE) Urine Ketones Negative (NEGATIVE) Urine Occult Blood Negative (NEGATIVE) Urine Nitrite Negative (NEGATIVE) Urine Bilirubin Negative (NEGATIVE) Urine Urobilinogen 4 MG/DL (0.0-1.0) Urine Leukocyte Esterase Negative (NEGATIVE) Urine RBC 0-2 /HPF (0 - 0) Urine WBC 0-2 /HPF (0 - 0) Urine Squamous Epithelial Cells Occasional /LPF Urine Bacteria Occasional /HPF (NONE) White Blood Count 16.9 K/UL (4.8-10.8) Red Blood Count 4.79 M/UL (4.70-6.10) Hemoglobin 13.2 G/DL (14.2-18.0) Hematocrit 42.2 % (42.0-52.0) Mean Corpuscular Volume 88 FL (80-99) Mean Corpuscular Hemoglobin 27.6 PG (27.0-31.0) Mean Corpuscular Hemoglobin Concent 31.3 G/DL (32.0-36.0) Red Cell Distribution Width 14.4 % (11.6-14.8) Platelet Count 199 K/UL (150-450) Mean Platelet Volume 10.7 FL (6.5-10.1) Neutrophils (%) (Auto) 81.0 % (45.0-75.0) Lymphocytes (%) (Auto) 12.7 % (20.0-45.0) Monocytes (%) (Auto) 5.1 % (1.0-10.0) Eosinophils (%) (Auto) 0.5 % (0.0-3.0) Basophils (%) (Auto) 0.7 % (0.0-2.0) Sodium Level 141 MMOL/L (136-145) Potassium Level 3.8 MMOL/L (3.5-5.1) Chloride Level 103 MMOL/L (98-107) Carbon Dioxide Level 29 MMOL/L (21-32) Anion Gap 9 mmol/L (5-15) Blood Urea Nitrogen 21 mg/dL (7-18) Creatinine 1.5 MG/DL (0.55-1.30) Estimat Glomerular Filtration Rate > 60 mL/min (>60) Glucose Level 113 MG/DL (74-106) Calcium Level 8.7 MG/DL (8.5-10.1) Total Bilirubin 1.0 MG/DL (0.2-1.0) Aspartate Amino Transf (AST/SGOT) 31 U/L (15-37) Alanine Aminotransferase (ALT/SGPT) 40 U/L (12-78) Alkaline Phosphatase 166 U/L (46-116) Troponin I 0.030 ng/mL (0.000-0.056) Total Protein 7.7 G/DL (6.4-8.2) Albumin 3.4 G/DL (3.4-5.0) Globulin 4.3 g/dL Albumin/Globulin Ratio 0.8 (1.0-2.7) Lipase 158 U/L (73-393) EKG Diagnostic Results Rate: tachycardiac Rhythm: NSR ST Segments: no acute changes Last Vital Signs Date Time Temp Pulse Resp B/P (MAP) Pulse Ox O2 Delivery O2 Flow Rate FiO2 03/19/18 23:06 98.0 105 20 123/84 97 Room Air 98.1 Status: improved Disposition: HOME, SELF-CARE Condition: Stable Scripts Cephalexin* (KEFLEX*) 500 Mg Capsule 500 MG ORAL EVERY 6 HOURS, #20 CAP Prov: Sae Sanchez 03/20/18 Furosemide* (LASIX*) 20 Mg Tablet 20 MG ORAL DAILY, #30 TAB 0 Refills Prov: Sae Sanchez 03/20/18 Sae Sanchez March 19, 2018 23:26
[2018-03-19 23:35] VITALS: BP 123/84
[2018-03-19 23:38] LABS: APPEARANCE,URINE CLEAR; BILIRUBIN, URINE NEGATIVE (NEGATIVE); COLOR,URINE YELLOW; GLUCOSE, URINE (UA) NEGATIVE (NEGATIVE); KETONES,URINE NEGATIVE (NEGATIVE); LEUKOCYTE ESTERASE ,URINE NEGATIVE (NEGATIVE); NITRITE,URINE NEGATIVE (NEGATIVE); PH,URINE 6 (4.5-8.0); PROTEIN,URINE 4+ (NEGATIVE); UROBILINOGEN,URINE 4 MG/DL (0.0-1.0)
[2018-03-19 23:56] LABS: BASOPHILS % (AUTO) 0.7 % (0.0-2.0); EOSINOPHILS % (AUTO) 0.5 % (0.0-3.0); HEMATOCRIT 42.2 % (42.0-52.0); HEMOGLOBIN 13.2 G/DL (14.2-18.0); LYMPHOCYTES % (AUTO) 12.7 % (20.0-45.0); MEAN CORPUSCULAR VOLUME 88 FL (80-99); MONOCYTES % (AUTO) 5.1 % (1.0-10.0); PLATELET COUNT 199 K/UL (150-450); RED BLOOD COUNT 4.79 M/UL (4.70-6.10); RED CELL DISTRIBUTION WIDTH 14.4 % (11.6-14.8); WHITE BLOOD COUNT 16.9 K/UL (4.8-10.8)
[2018-03-20 00:07] LABS: ANION GAP 9 mmol/L (5-15); BLOOD UREA NITROGEN 21 mg/dL (7-18); CALCIUM 8.7 MG/DL (8.5-10.1); CARBON DIOXIDE 29 MMOL/L (21-32); CHLORIDE 103 MMOL/L (98-107); CREATININE 1.5 MG/DL (0.55-1.30); POTASSIUM 3.8 MMOL/L (3.5-5.1); SODIUM 141 MMOL/L (136-145)
[2018-03-20 00:18] LABS: ALANINE AMINOTRANSFERASE 40 U/L (12-78); ALBUMIN 3.4 G/DL (3.4-5.0); ALBUMIN/GLOBULIN RATIO 0.8 (1.0-2.7); ALKALINE PHOSPHATASE 166 U/L (46-116); ASPARTATE AMINO TRANSFERASE 31 U/L (15-37)
[2018-03-20] MEDS ORDERED: Lidocaine 2% Visc 15ml soln ORAL ONE ×3 (00:30→00:45)
[2018-03-20] MEDS ORDERED: cefTRIAXone 2 GM in NS 55 ML IVPB ONE (00:30)
[2018-03-20] MEDS ORDERED: Dicyclomine HCl 10mg/5ml oral soln ORAL ONE (00:30)
[2018-03-20 01:06] VITALS: BP 124/90
[2018-03-20 02:52] VITALS: BP 121/91
[2018-03-20] MEDS ORDERED: CEPHALEXIN500 MG ORAL (03:36)
[2018-03-20] MEDS ORDERED: FUROSEMIDE20 M1 ORAL (03:36)
[2018-03-20 05:41] VITALS: BP 113/80
[2018-03-20 05:43] VITALS: BP 113/80
--- NOTE | 2018-03-20 11:37 | Cardiology Report ---
APPROVED REPORT EKG Measurement Heart [id number] Sinus tachycardia Possible Left atrial enlargement Possible Anterior infarct, age undetermined Abnormal ECG
--- NOTE | 2018-03-24 11:57 | Diagnostic Imaging Report ---
EXAM: XR Chest, 1 View CLINICAL HISTORY: ABD PAIN TECHNIQUE: Frontal view of the chest. COMPARISON: cxr 03/06/18 FINDINGS: Lungs: Bilateral upper lobe opacities stable. Stable mild vascular prominence. Pleural space: Unremarkable. No pneumothorax. Heart: Cardiomegaly. Mediastinum: Unremarkable. Bones/joints: Unremarkable. IMPRESSION: Stable cardiomegaly and upper lobe opacities.
--- NOTE | 2018-03-24 11:57 | Diagnostic Imaging Report ---
EXAM: CT Abdomen and Pelvis With Intravenous Contrast CLINICAL HISTORY: Abd pain During inj pt started vomiting, inj was stopped. Approx 30cc injected TECHNIQUE: Axial computed tomography images of the abdomen and pelvis with intravenous contrast. CTDI is 29.28 mGy and DLP is 1561 mGy-cm. One or more of the following dose reduction techniques were used: automated exposure control, adjustment of the mA and/or kV according to patient size, use of iterative reconstruction technique. Coronal and sagittal reconstructions are performed COMPARISON: 03/04/17 FINDINGS: Lung bases: Mild pulmonary edema. Heart: Moderate cardiomegaly. ABDOMEN: Liver: Unremarkable. No mass. Gallbladder and bile ducts: Unremarkable. No calcified stones. No ductal dilation. Pancreas: Unremarkable. No mass. No ductal dilation. Spleen: Unremarkable. No splenomegaly. Adrenals: Unremarkable. No mass. Kidneys and ureters: Unremarkable. No solid mass. No hydronephrosis. Stomach and bowel: Unremarkable. No obstruction. No mucosal thickening. PELVIS: Appendix: appendix. Bladder: Unremarkable. No mass. Reproductive: Unremarkable as visualized. ABDOMEN and PELVIS: Intraperitoneal space: Unremarkable. No free air. No significant fluid collection. Bones/joints: Posterior disc protrusion in the left paramedian region at L4-5, causes mild thecal sac compression. No dislocation. Soft tissues: Small fat-containing bilateral inguinal hernias, more on the left. Vasculature: Unremarkable. No abdominal aortic aneurysm. Lymph nodes: Unremarkable. No enlarged lymph nodes. IMPRESSION: No acute findings in the abdomen or pelvis Mild pulmonary edema.
--- NOTE | 2018-03-24 11:57 | Diagnostic Imaging Report ---
EXAM: XR Abdomen, 2 Views CLINICAL HISTORY: ABD PAIN TECHNIQUE: Frontal view of the abdomen/pelvis with upright view of the abdomen. COMPARISON: CT abdomen/pelvic. FINDINGS: Intraperitoneal space: No free air. Gastrointestinal tract: Unremarkable. No dilation. Bones/joints: Unremarkable. IMPRESSION: Unremarkable.
== END 2018-03-20 05:43 | disposition home or self-care (01) ==
LOC: EMR 23:35
DX: R10.84 Generalized abdominal pain (principal); I50.9 Heart failure, unspecified; F15.10 Other stimulant abuse, uncomplicated
CPT/HCPCS: 36415; 71045; 74018; 74177; 80053; 80307; 81003; 83690; 84484; 85025; 86850; 86900; 86901; 93005; 96374; 99284; J0696; J0780; J1940; J2405; Q9967; S0028

== ENCOUNTER 2018-03-25 01:18 | Emergency (ER) | payer OTHER ==
[~2018-03-25] VITALS: Ht 172.7 cm; Wt 113.4 kg
[~2018-03-25 01:18] MED LIST changes: +CEPHALEXIN500 MG ORAL
[2018-03-25] MEDS ORDERED: Furosemide 40mg tab ORAL ONE (02:15)
[2018-03-25] MEDS ORDERED: Dicyclomine HCl 10mg/5ml oral soln ORAL ONE (02:15)
[2018-03-25] MEDS ORDERED: Mylanta II UD 30ml ORAL ONE (02:15)
--- NOTE | 2018-03-25 02:25 | Emergency Room Report ---
History of Present Illness General Chief Complaint: Abdominal Pain Source: Patient Present Illness HPI Patient presents with complaints of abdominal bloating Reports that he has had increased swelling in his legs and the lower abdomen Denies any vomiting or diarrhea Denies any fevers or chills Denies any chest pain or shortness of breath Pain is 6 out of 10 localized across the bilateral lower abdomen Denies any trauma Allergies: Coded Allergies: No Known Allergies (Unverified , 08/25/13) Patient History Past Medical History: see triage record Pertinent Family History: none Reviewed Nursing Documentation: PMH: Agreed; PSxH: Agreed Nursing Documentation-PMH Past Medical History: No History, Except For Hx Cardiac Problems: Yes - CHF Hx Cancer: No Hx Gastrointestinal Problems: No Review of Systems All Other Systems: negative except mentioned in HPI Physical Exam Vital Signs Date Time Temp Pulse Resp B/P (MAP) Pulse Ox O2 Delivery O2 Flow Rate FiO2 03/25/18 01:23 98.0 109 16 123/72 98 Room Air 98.1 Sp02 EP Interpretation: reviewed, normal General Appearance: well appearing, no apparent distress Head: normocephalic, atraumatic Eyes: bilateral eye PERRL, bilateral eye EOMI ENT: normal pharynx, no angioedema Neck: supple Respiratory: lungs clear Cardiovascular #1: regular rate, rhythm, other - Mild edema bilateral lower extremity Gastrointestinal: non tender - On palpation however subjectively uncomfortable diffusely, soft, no mass, no organomegaly Musculoskeletal: normal inspection Neurologic: alert, oriented x3 Skin: normal color, no rash Medical Decision Making Diagnostic Impression: Primary Impression: Abdominal pain ER Course With the history exam and presentation, multiple differentials considered, including but not limited to appendicitis, gastritis, cholecystitis, diverticulitis Patient has a benign abdominal exam soft CAT scan from 5 days ago does not reveal any obvious acute pathology Patient has rested comfortably throughout his stay There has been no signs of vomiting Patient was being provided GI cocktail when he began demanding IV medication Patient was advised to initially attempt this medicine however he became irate and walked out of the emergency room Last Vital Signs Date Time Temp Pulse Resp B/P (MAP) Pulse Ox O2 Delivery O2 Flow Rate FiO2 03/25/18 01:23 98.0 109 16 123/72 98 Room Air 98.1 Status: improved Disposition: ELOPED Condition: Unknown Referrals: [facility],REFERRING (PCP) Arnulfo Wilkinson DO March 25, 2018 02:25
[2018-03-25 05:45] VITALS: BP 123/72
== END 2018-03-25 05:58 | disposition left against medical advice (07) ==
LOC: EMR 01:44
DX: R10.9 Unspecified abdominal pain (principal); I50.9 Heart failure, unspecified
CPT/HCPCS: 99282

== ENCOUNTER 2018-03-30 09:14 | Emergency (ER) | payer OTHER ==
[~2018-03-30] VITALS: Ht 172.7 cm; Wt 99.8 kg
[2018-03-30 09:36] VITALS: BP 120/84
--- NOTE | 2018-03-30 09:50 | Emergency Room Report ---
History of Present Illness General Chief Complaint: Flu Like Symptoms Source: Patient Present Illness HPI The patient presents with cough and congestion. He states this doesn't bother him that much. What is more concerning to him is that he cannot fill his pain medicine prescription. He is complaining of total body aches. He states he only has a few more [place]. He denies chest pain or productive cough. He has been taking his Lasix. The swelling is going down in his legs, but still present. Denies hemoptysis. He states his doctors are changing. No NVD, No dysuria, no fevers. Skin is not hot or red. No increased joint pain. Patient suffers from dilated cardiomyopathy, gout, CHF, amphetamine abuse. Allergies: Coded Allergies: No Known Allergies (Unverified , 08/25/13) Patient History Past Medical History: see triage record Social History: Reports: smoking, drug use Reviewed Nursing Documentation: PMH: Agreed; PSxH: Agreed Nursing Documentation-PMH Past Medical History: No History, Except For Hx Cardiac Problems: Yes - CHF Hx Cancer: No Hx Gastrointestinal Problems: No Review of Systems All Other Systems: negative except mentioned in HPI Physical Exam Vital Signs Date Time Temp Pulse Resp B/P (MAP) Pulse Ox O2 Delivery O2 Flow Rate FiO2 03/30/18 09:28 97.5 107 18 120/84 98 Room Air 97.5 Sp02 EP Interpretation: reviewed, normal General Appearance: no apparent distress, GCS 15, Chronically Ill Head: normocephalic, atraumatic Eyes: bilateral eye normal inspection, bilateral eye PERRL ENT: hearing grossly normal, normal voice, moist mucus membranes Neck: full range of motion, supple Respiratory: no respiratory distress, decreased breath sounds, speaking full sentences, other Cardiovascular #1: regular rate, rhythm, edema Cardiovascular #2: 2+ radial (R) Gastrointestinal: normal bowel sounds, non tender, soft, no guarding, no rebound, other, overweight Musculoskeletal: gait/station normal, normal range of motion, no calf tenderness Neurologic: alert, normal gait, grossly normal Psychiatric: mood/affect normal, anxious Skin: warm/dry, other Medical Decision Making Diagnostic Impression: Primary Impression: Chronic pain Qualified Codes: G89.29 - Other chronic pain Additional Impression: CHF (congestive heart failure) Qualified Codes: I50.42 - Chronic combined systolic (congestive) and diastolic (congestive) heart failure Last Vital Signs Date Time Temp Pulse Resp B/P (MAP) Pulse Ox O2 Delivery O2 Flow Rate FiO2 03/30/18 10:01 97.5 18 120/84 98 Room Air 207.5 03/30/18 09:38 107 Status: unchanged Disposition: HOME, SELF-CARE Condition: Stable Scripts Acetaminophen (Tylenol) 325 Mg Tablet 650 MG ORAL Q6H PRN for Prn Pain/Headache/Temp > 101, #20 TAB 0 Refills Prov: Roel Alejo M.D. 03/30/18 Referrals: [facility],REFERRING (PCP) Roel Alejo M.D. March 30, 2018 09:50
[2018-03-30] MEDS ORDERED: TYLENOL325 MG ORAL (09:52)
[2018-03-30 10:01] VITALS: BP 120/84
== END 2018-03-30 10:02 | disposition home or self-care (01) ==
LOC: EMR 09:39
DX: G89.29 Other chronic pain (principal); I50.9 Heart failure, unspecified; M10.9 Gout, unspecified; I42.9 Cardiomyopathy, unspecified; F15.10 Other stimulant abuse, uncomplicated
CPT/HCPCS: 99282

== ENCOUNTER 2018-03-31 01:30 | Emergency (ER) | payer OTHER ==
[~2018-03-31] VITALS: Ht 172.7 cm; Wt 99.8 kg
[~2018-03-31 01:30] MED LIST changes: +TYLENOL325 MG ORAL
[2018-03-31 02:10] VITALS: BP 108/68
--- NOTE | 2018-03-31 04:25 | Emergency Room Report ---
History of Present Illness General Chief Complaint: General Complaint Source: Patient Present Illness HPI 38-year-old male with history of CHF reports that "I want morphine" He keeps reiterating that he is in pain all over, and he wants morphine Reports he just wants one dose here in the ER and a prescription go home with pain meds Later he reports he is just okay with 1 dose of morphine here and no prescriptions He was seen in our ER yesterday for similar complaints Allergies: Coded Allergies: No Known Allergies (Unverified , 08/25/13) Patient History Past Medical History: see triage record Reviewed Nursing Documentation: PMH: Agreed; PSxH: Agreed Nursing Documentation-PMH Hx Cardiac Problems: Yes - CHF Hx Cancer: No Hx Gastrointestinal Problems: No Review of Systems All Other Systems: negative except mentioned in HPI Physical Exam Vital Signs Date Time Temp Pulse Resp B/P (MAP) Pulse Ox O2 Delivery O2 Flow Rate FiO2 03/31/18 01:41 97.7 96 18 108/68 99 Room Air 97.7 Sp02 EP Interpretation: reviewed, normal General Appearance: no apparent distress, alert, non-toxic Head: normocephalic Eyes: bilateral eye normal inspection, bilateral eye PERRL, bilateral eye EOMI ENT: normal ENT inspection, hearing grossly normal, normal pharynx, no angioedema, normal voice, moist mucus membranes Neck: normal inspection, full range of motion, supple, supple/symm/no masses Respiratory: chest non-tender, lungs clear, normal breath sounds, chest symmetrical, palpation of chest normal Cardiovascular #1: normal peripheral pulses, regular rate, rhythm Cardiovascular #2: 2+ radial (R), 2+ radial (L) Gastrointestinal: normal inspection, non tender, soft, no mass, no guarding, no rebound Rectal: deferred Genitourinary: normal inspection, no CVA tenderness Musculoskeletal: back normal, gait/station normal, normal range of motion, non- tender, no calf tenderness Neurologic: alert, responsive, devops architect III-XII nml as tested, motor strength/tone normal, sensory intact, speech normal Psychiatric: judgement/insight normal, memory normal, mood/affect normal Skin: normal color, no rash, warm/dry, normal turgor Lymphatic: no adenopathy Medical Decision Making Diagnostic Impression: Primary Impression: Medication refill ER Course Patient without signs and symptoms concerning for CHF exacerbation, completely normal clinical examination, however patient had pain all over and wanted narcotics, and was discharged because I refused to give them to him and he did not want any unless he was going to pain meds. However his symptoms, so no workup was done and he was discharged Last Vital Signs Date Time Temp Pulse Resp B/P (MAP) Pulse Ox O2 Delivery O2 Flow Rate FiO2 03/31/18 02:10 97.7 96 18 108/68 99 Room Air 97.7 Disposition: HOME, SELF-CARE Condition: Stable Referrals: [facility],REFERRING (PCP) LILIA BELLE M.D March 31, 2018 04:25
[2018-03-31 04:26] VITALS: BP 108/68
== END 2018-03-31 04:27 | disposition home or self-care (01) ==
LOC: EMR 02:13
DX: Z76.0 Encounter for issue of repeat prescription (principal); I50.9 Heart failure, unspecified
CPT/HCPCS: 99281

== ENCOUNTER 2018-04-12 06:20 | Emergency (ER) | payer OTHER ==
[~2018-04-12] VITALS: Ht 172.7 cm; Wt 102.1 kg
[2018-04-12 07:13] LABS: ANION GAP 10 mmol/L (5-15); BLOOD UREA NITROGEN 21 mg/dL (7-18); CALCIUM 8.6 MG/DL (8.5-10.1); CARBON DIOXIDE 23 MMOL/L (21-32); CHLORIDE 105 MMOL/L (98-107); CREATININE 1.5 MG/DL (0.55-1.30); POTASSIUM 4.2 MMOL/L (3.5-5.1); SODIUM 138 MMOL/L (136-145)
[2018-04-12 07:20] LABS: BASOPHILS % (AUTO) 1.4 % (0.0-2.0); EOSINOPHILS % (AUTO) 1.1 % (0.0-3.0); HEMOGLOBIN 12.7 G/DL (14.2-18.0); LYMPHOCYTES % (AUTO) 32.8 % (20.0-45.0); MEAN CORPUSCULAR VOLUME 84 FL (80-99); MONOCYTES % (AUTO) 7.1 % (1.0-10.0); NEUTROPHILS % (AUTO) 57.7 % (45.0-75.0); PLATELET COUNT 245 K/UL (150-450); RED BLOOD COUNT 4.62 M/UL (4.70-6.10); RED CELL DISTRIBUTION WIDTH 15.5 % (11.6-14.8); WHITE BLOOD COUNT 12.1 K/UL (4.8-10.8)
[2018-04-12 07:27] LABS: ALANINE AMINOTRANSFERASE 46 U/L (12-78); ALBUMIN 3.3 G/DL (3.4-5.0); ALBUMIN/GLOBULIN RATIO 0.8 (1.0-2.7); ALKALINE PHOSPHATASE 146 U/L (46-116); ASPARTATE AMINO TRANSFERASE 31 U/L (15-37); BILIRUBIN,TOTAL 0.8 MG/DL (0.2-1.0); CKMB 1.5 NG/ML (0.0-3.6); CREATINE KINASE 95 U/L (26-308)
[2018-04-12] MEDS ORDERED: Ketorolac 30mg Inj IV ONE (07:45)
[2018-04-12] MEDS ORDERED: Norco 5mg/325mg tab ORAL ONE (07:45)
[2018-04-12 08:08] VITALS: BP 103/73
--- NOTE | 2018-04-12 08:21 | Emergency Room Report ---
History of Present Illness General Chief Complaint: Chest Pain Source: Patient Present Illness HPI 38-year-old male presents ED complaining of chest pain. Started yesterday. Pain is midsternal, sharp, 7 out of 10, nonradiating. Patient also complaining of shortness of breath. States it is difficult for him to walk. Complaining of leg swelling. Notes history of CHF. States he is compliant with his medications. No other aggravating or relieving factors. Denies any other associated symptoms Allergies: Coded Allergies: No Known Allergies (Unverified , 08/25/13) Patient History Past Medical History: CHF Past Surgical History: none Pertinent Family History: none Social History: Denies: smoking, alcohol use, drug use Immunizations: UTD Reviewed Nursing Documentation: PMH: Agreed; PSxH: Agreed Nursing Documentation-PMH Hx Cardiac Problems: Yes - CHF Hx Cancer: No Hx Gastrointestinal Problems: No Review of Systems All Other Systems: negative except mentioned in HPI Physical Exam Vital Signs Date Time Temp Pulse Resp B/P (MAP) Pulse Ox O2 Delivery O2 Flow Rate FiO2 04/12/18 06:25 97.6 96 18 120/83 99 Room Air 97.5 Sp02 EP Interpretation: reviewed, normal General Appearance: no apparent distress, alert, GCS 15, non-toxic, obese Head: normocephalic, atraumatic Eyes: bilateral eye normal inspection, bilateral eye PERRL ENT: hearing grossly normal, normal pharynx, no angioedema, normal voice Neck: full range of motion, supple/symm/no masses Respiratory: chest non-tender, lungs clear, normal breath sounds, speaking full sentences Cardiovascular #1: regular rate, rhythm, no edema Cardiovascular #2: 2+ carotid (R), 2+ carotid (L), 2+ radial (R), 2+ radial (L) , 2+ dorsalis pedis (R), 2+ dorsalis pedis (L) Gastrointestinal: normal bowel sounds, non tender, soft, non-distended, no guarding, no rebound Rectal: deferred Genitourinary: normal inspection, no CVA tenderness Musculoskeletal: back normal, gait/station normal, normal range of motion, non- tender, swelling - 1+ edema b/l LEs Neurologic: alert, oriented x3, responsive, motor strength/tone normal, sensory intact, speech normal Psychiatric: judgement/insight normal, memory normal, mood/affect normal, no suicidal/homicidal ideation Reflexes: 3+ bicep (R), 3+ bicep (L), 3+ tricep (R), 3+ tricep (L), 3+ knee (R) , 3+ knee (L) Skin: normal color, no rash, warm/dry, well hydrated Lymphatic: no adenopathy Medical Decision Making Diagnostic Impression: Primary Impression: Acute on chronic diastolic (congestive) heart failure Additional Impressions: Chest pain Qualified Codes: R07.9 - Chest pain, unspecified Renal insufficiency ER Course Hospital Course 38-year-old male presents ED complaining of shortness of breath, chest pain Differential diagnoses include: NH/unstable angina, contusion, muscle strain, PTX, rib fracture Clinical course Patient placed on stretcher. on monitor technician. After initial history and physical I ordered labs, EKG, chest x-ray labs reviewed- no leukocytosis, hemoglobin/hematocrit stable, creatinine elevated, troponins 0.022, BNP elevated doppler US - negative for DVT EKG - NSR, no acute ischemic changes interpreted by me Chest x-ray- cardiomegaly, CHF Patient has been here multiple times recently. Normally he requests morphine and recently has even refused workup when he did not receive pain medications. Currently patient is not requesting pain medication and is here mainly because he feels short of breath when walking. Given his history of CHF and significant cardiomyopathy I believe patient should be admitted asa given. Lasix given. because of insurance patient will be transferred I. I feel this is a highly complex case requiring extensive working including EKG/Rhythm strip, Xray/CT/US, Blood/urine lab work, repeat exams while in ED, and administration of strong opiates/narcotics for pain control, admission to hospital or close patient follow up. Diagnosis - CHF exacerbation, chest pain, renal insufficiency admitted to telemetry in serious condition Labs Test 04/12/18 06:44 White Blood Count 12.1 K/UL (4.8-10.8) Red Blood Count 4.62 M/UL (4.70-6.10) Hemoglobin 12.7 G/DL (14.2-18.0) Hematocrit 39.0 % (42.0-52.0) Mean Corpuscular Volume 84 FL (80-99) Mean Corpuscular Hemoglobin 27.4 PG (27.0-31.0) Mean Corpuscular Hemoglobin Concent 32.4 G/DL (32.0-36.0) Red Cell Distribution Width 15.5 % (11.6-14.8) Platelet Count 245 K/UL (150-450) Mean Platelet Volume 9.8 FL (6.5-10.1) Neutrophils (%) (Auto) 57.7 % (45.0-75.0) Lymphocytes (%) (Auto) 32.8 % (20.0-45.0) Monocytes (%) (Auto) 7.1 % (1.0-10.0) Eosinophils (%) (Auto) 1.1 % (0.0-3.0) Basophils (%) (Auto) 1.4 % (0.0-2.0) Sodium Level 138 MMOL/L (136-145) Potassium Level 4.2 MMOL/L (3.5-5.1) Chloride Level 105 MMOL/L (98-107) Carbon Dioxide Level 23 MMOL/L (21-32) Anion Gap 10 mmol/L (5-15) Blood Urea Nitrogen 21 mg/dL (7-18) Creatinine 1.5 MG/DL (0.55-1.30) Estimat Glomerular Filtration Rate > 60 mL/min (>60) Glucose Level 96 MG/DL (74-106) Calcium Level 8.6 MG/DL (8.5-10.1) Total Bilirubin 0.8 MG/DL (0.2-1.0) Aspartate Amino Transf (AST/SGOT) 31 U/L (15-37) Alanine Aminotransferase (ALT/SGPT) 46 U/L (12-78) Alkaline Phosphatase 146 U/L (46-116) Total Creatine Kinase 95 U/L (26-308) Creatine Kinase MB 1.5 NG/ML (0.0-3.6) Creatine Kinase MB Relative Index 1.5 Troponin I 0.022 ng/mL (0.000-0.056) Pro-B-Type Natriuretic Peptide 2859 pg/mL (0-125) Total Protein 7.4 G/DL (6.4-8.2) Albumin 3.3 G/DL (3.4-5.0) Globulin 4.1 g/dL Albumin/Globulin Ratio 0.8 (1.0-2.7) EKG Diagnostic Results Rate: normal Rhythm: NSR ST Segments: no acute changes ASA given to the pt in ED: Yes Rhythm Strip Diag. Results EP Interpretation: yes Rhythm: NSR, no PVC's, no ectopy Chest X-Ray Diagnostic Results Chest X-Ray Diagnostic Results : Chest X-Ray Ordered: Yes # of Views/Limited/Complete: 1 View Indication: Chest Pain EP Interpretation: Yes Interpretation: no consolidation, no pneumothorax, other - cardiomegaly Impression: Other - chf Electronically Signed by: Electronically signed by Kenton Pastor MD Last Vital Signs Date Time Temp Pulse Resp B/P (MAP) Pulse Ox O2 Delivery O2 Flow Rate FiO2 04/12/18 08:08 88 20 103/73 98 Room Air 04/12/18 07:51 97.6 Status: improved Disposition: ADMITTED INPATIENT Condition: Serious Referrals: [facility],REFERRING (PCP) Kenton Pastor MD April 12, 2018 08:21
[2018-04-12 10:29] VITALS: BP 103/73
--- NOTE | 2018-04-12 10:34 | Diagnostic Imaging Report ---
Indication: Dyspnea Comparison: 03/20/2018 A single view chest radiograph was obtained. Findings: The heart is enlarged. The lungs are clear with normal vascularity. No infiltrate is identified. Bones are unremarkable. IMPRESSION: Cardiomegaly
--- NOTE | 2018-04-12 14:00 | Cardiology Report ---
APPROVED REPORT EKG Measurement Heart [id number] Normal sinus rhythm Possible Left atrial enlargement Cannot rule out Anterior infarct, age undetermined non specific t wave changes Abnormal ECG
== END 2018-04-12 10:30 | disposition other institution (70) ==
LOC: EMR 06:40
DX: I50.33 Acute on chronic diastolic (congestive) heart failure (principal); N28.9 Disorder of kidney and ureter, unspecified
CPT/HCPCS: 36415; 71045; 80053; 82550; 82553; 83880; 84484; 85025; 93005; 96374; 96375; 99285; J1940

== ENCOUNTER 2018-05-11 16:59 | Emergency (ER) | payer OTHER ==
[~2018-05-11] VITALS: Ht 172.7 cm; Wt 99.8 kg
[2018-05-11 17:17] VITALS: BP 148/89
[2018-05-11] MEDS ORDERED: Bicillin LA 2.4MMU/4ML SYR IM ONE (17:45)
--- NOTE | 2018-05-11 17:49 | Emergency Room Report ---
History of Present Illness General Chief Complaint: Male Urogenital Problems Source: Patient Present Illness HPI 38-year-old male patient presents ER complaining of stinging right testicle pain. Reports pain began 3 hours ago. Denies trauma or recent injury. Denies dysuria, hematuria, penile discharge. denies chest pain, shortness breath, abdominal pain. denies other acute symptoms. Allergies: Coded Allergies: No Known Allergies (Unverified , 08/25/13) Patient History Past Medical History: see triage record Reviewed Nursing Documentation: PMH: Agreed; PSxH: Agreed Nursing Documentation-PMH Past Medical History: No History, Except For Hx Cardiac Problems: Yes - CHF Hx Cancer: No Hx Gastrointestinal Problems: No Review of Systems All Other Systems: negative except mentioned in HPI Physical Exam Vital Signs Date Time Temp Pulse Resp B/P (MAP) Pulse Ox O2 Delivery O2 Flow Rate FiO2 05/11/18 17:07 97.6 8 24 148/89 97 Room Air 97.5 Sp02 EP Interpretation: reviewed, normal General Appearance: well appearing, no apparent distress, alert, GCS 15, non- toxic Head: normocephalic, atraumatic Eyes: bilateral eye normal inspection, bilateral eye PERRL ENT: hearing grossly normal, normal pharynx, no angioedema, normal voice, uvula midline, moist mucus membranes Neck: full range of motion Respiratory: lungs clear, normal breath sounds, no rhonchi, no respiratory distress, no accessory muscle use, no wheezing, speaking full sentences Genitourinary: no CVA tenderness, scrotum normal - no high riding testicle, cremasteric reflex intact, no horizontal lie, no bag of worms; nontender lesion on penis consistent with chancre, other Musculoskeletal: back normal, digits/nails normal, gait/station normal, normal range of motion, non-tender Neurologic: alert, oriented x3, responsive, motor strength/tone normal, sensory intact Psychiatric: mood/affect normal Skin: rash - white cottage cheeselike rash and bilateral inguinal region, adherent, no foul smell Medical Decision Making PA Attestation Dr. Sanchez is my supervising Physician whom patient management has been discussed with. Diagnostic Impression: Primary Impression: Testicular pain, right Additional Impressions: Chancre Encounter for assessment of sexually transmitted disease exposure Fungal infection of skin ER Course Pt. presents to the ED c/o testicular pain. Ddx considered but are not limited to testicular torsion, epididymitis, UTI, testicular cyst, varicocele, hydrocele, inguinal hernia. Vital signs: are WNL, pt. is afebrile H&PE are most consistent with testicular pathology, r/o testicular torsion. ORDERS: -Scrotal US and negative, no testicular torsion, no epididymitis, no bronchitis , no varicocele, small bilateral hydrocele noted probable physiologic per food safety technician. Will provide Ibuprofen for pain relief. Return to ER for new or worsening of symptoms. -UA: results negative, negative nitrite, does not indicate UTI infection at this time. Does not require antibiotic treatment. Physical exam shows painless ulcer on penis, patient has a history of chancre. the previously provided with treatment to cover for syphilis, will provide treatment for possible STI in ER. Informed patient to follow-up with STI clinic for further testing and treatment. Needs to alert sexual partners of need for testing and treatment. wear condoms during sex. Avoid sexual activity for the next 2 weeks. Drink plenty of fluids. treated with azithromycin and Rocephin while in ER. Inguinal fungal infection. On physical exam, white, curd-like, cottage cheese- like rash that is adherent to bilateral inguinal region, likely fungal infection , will provide fluconazole treatment while in ER, Will discharge home with miconazole for further treatment. Informed patient that fungal infections like or most areas, instructed to keep clean and dry. Patient resting comfortably in no acute distress, nontoxic appearing, able to ambulate independently without difficulty. Followup with STI clinic and PCP for further evaluation and treatment. Patient stable for discharge to home. DISCHARGE: Rx provided for Miconazole topical Rx provided for Motrin for pain symptoms. At this time pt. is stable for d/c to home. Will provide printed patient care instructions, and any necessary prescriptions. Care plan and follow up instructions have been discussed with the patient prior to discharge. Followup with archaeologist in 3 -5 days. Followup with urologist. Take medications as directed. Patient questions asked and answered. ER precautions given, patient instructed to return to ER immediately for any new or worsening of symptoms including but not limited to fever, nausea, vomiting, worsening of pain. - Please note that this Emergency Department Report was dictated using [employer] tool sharpener technology software, occasionally this can lead to erroneous entry secondary to interpretation by the dictation equipment. Labs Test 05/11/18 18:10 Urine Color Yellow Urine Appearance Clear Urine pH 5 (4.5-8.0) Urine Specific [place] 1.015 (1.005-1.035) Urine Protein Negative (NEGATIVE) Urine Glucose (UA) Negative (NEGATIVE) Urine Ketones Negative (NEGATIVE) Urine Occult Blood Negative (NEGATIVE) Urine Nitrite Negative (NEGATIVE) Urine Bilirubin Negative (NEGATIVE) Urine Urobilinogen Normal MG/DL (0.0-1.0) Urine Leukocyte Esterase 1+ (NEGATIVE) Urine RBC 0-2 /HPF (0 - 0) Urine WBC 2-4 /HPF (0 - 0) Urine Squamous Epithelial Cells None /LPF (NONE/OCC) Urine Bacteria Few /HPF (NONE) Urine Hyaline Casts 0-2 /LPF (NONE) CT/MRI/US Diagnostic Results CT/MRI/US Diagnostic Results : Imaging Test Ordered: testicular ultrasound Impression no testicular torsion, no epididymitis, no varicocele via the food safety technician Last Vital Signs Date Time Temp Pulse Resp B/P (MAP) Pulse Ox O2 Delivery O2 Flow Rate FiO2 05/11/18 17:07 97.6 8 24 148/89 97 Room Air 97.5 Disposition: HOME, SELF-CARE Condition: Stable Scripts Miconazole Nitrate (Miconazole Nitrate) 30 Gm Cream..g. 1 APPLIC TOPIC BID, #30 APPLIC Prov: Phoenix Durham 05/11/18 Ibuprofen* (MOTRIN*) 600 Mg Tablet 600 MG ORAL Q8H PRN for For Pain, #30 TAB 0 Refills Prov: Phoenix Durham 05/11/18 Patient Instructions: Hydrocele, Adult, Sexually Transmitted Disease, Easy-to- Read, Skin Yeast Infection, Syphilis, Testicular Self-Exam, [id number] Additional Instructions: Followup with primary care provider in 3 -5 days. Avoid sexual activity for 2 weeks. Or, during sex. Follow-up with STI clinic testing for evaluation and treatment. Informed partners and need for testing and treatment. Take medications as directed. Apply cream to affected area. Keep clean and dry, fungal infections like were moist areas. Follow-up with primary care provider for further testing and treatment. Patient questions asked and answered. ER precautions given, patient instructed to return to ER immediately for any new or worsening of symptoms. Phoenix Durham May 11, 2018 17:49
[2018-05-11 18:44] LABS: APPEARANCE,URINE CLEAR; BILIRUBIN, URINE NEGATIVE (NEGATIVE); GLUCOSE, URINE (UA) NEGATIVE (NEGATIVE); KETONES,URINE NEGATIVE (NEGATIVE); LEUKOCYTE ESTERASE ,URINE 1+ (NEGATIVE); NITRITE,URINE NEGATIVE (NEGATIVE); PH,URINE 5 (4.5-8.0); PROTEIN,URINE NEGATIVE (NEGATIVE); UROBILINOGEN,URINE NORMAL MG/DL (0.0-1.0)
[2018-05-11 18:53] LABS: COLOR,URINE YELLOW
[2018-05-11] MEDS ORDERED: IBUPROFEN600 MG ORAL (20:09)
[2018-05-11] MEDS ORDERED: Azithromycin 250mg tab ORAL ONE (20:15)
[2018-05-11] MEDS ORDERED: MONISTAT-DER1 APPLIC TOPIC (20:15)
[2018-05-11] MEDS ORDERED: Lidocaine 1% MPF 10mg/ml 5ml INJ ONE (20:15)
[2018-05-11] MEDS ORDERED: Fluconazole 100mg tab ORAL ONE (20:30)
[2018-05-11 20:43] VITALS: BP 112/66
[2018-05-11 20:55] VITALS: BP 112/66
--- NOTE | 2018-05-12 10:52 | Diagnostic Imaging Report ---
Indication:Scrotal pain Technique: Real time grayscale and duplex Doppler imaging of the scrotum performed. Comparison: None Findings: The size, contour, and echogenicitiy of the testis appear normal bilaterally. Right testis measures 4.4 x 2.2 x 2.4 cm. Left testis 4.5 x 2.6 x 3.2 cm. Small bilateral hydroceles are noted. There is no testicular mass or evidence of torsion. There is good doppler evidence of blood flow within both testes. Epididimi are unremarkable. Impression: Small bilateral hydroceles. No testicular mass or torsion.
== END 2018-05-11 20:55 | disposition home or self-care (01) ==
LOC: EMR 17:45
DX: N50.811 Right testicular pain (principal); A51.0 Primary genital syphilis; B36.9 Superficial mycosis, unspecified; I50.9 Heart failure, unspecified; N43.3 Hydrocele, unspecified
CPT/HCPCS: 76870; 81003; 96372; 99284; J0696; Q0144

== ENCOUNTER 2018-11-04 03:07 | Emergency (ER) | payer OTHER ==
[~2018-11-04] VITALS: Ht 172.7 cm; Wt 99.8 kg
[~2018-11-04 03:07] MED LIST changes: +IBUPROFEN600 MG ORAL; +MONISTAT-DER1 APPLIC TOPIC
[2018-11-04] MEDS ORDERED: FUROSEMIDE40 MG ORAL (03:35)
[2018-11-04] MEDS ORDERED: CARVEDILOL3.125 MG ORAL (03:35)
--- NOTE | 2018-11-04 03:39 | Emergency Room Report ---
History of Present Illness General Chief Complaint: Pain Source: Patient Present Illness HPI Patient present with complaints of swelling in his legs He has not been taking his medications which include Lasix denies any chest pain or shortness of breath Denies any chest pain and eyes any back or flank pain denies any focal weakness Patient reported diffuse general body ache Allergies: Coded Allergies: No Known Allergies (Unverified , 08/25/13) Patient History Past Medical History: see triage record Pertinent Family History: none Reviewed Nursing Documentation: PMH: Agreed; PSxH: Agreed Nursing Documentation-PMH Past Medical History: No History, Except For Hx Cardiac Problems: Yes - CHF Hx Cancer: No Hx Gastrointestinal Problems: No Review of Systems All Other Systems: negative except mentioned in HPI Physical Exam Vital Signs Date Time Temp Pulse Resp B/P (MAP) Pulse Ox O2 Delivery O2 Flow Rate FiO2 11/04/18 03:23 98.4 103 20 122/96 96 Room Air Sp02 EP Interpretation: reviewed, normal General Appearance: well appearing, no apparent distress Head: normocephalic, atraumatic Eyes: bilateral eye PERRL, bilateral eye EOMI ENT: hearing grossly normal, normal pharynx, TMs + canals normal, uvula midline Neck: full range of motion, supple, no meningismus, no bony tend Respiratory: lungs clear, normal breath sounds, no rhonchi, no respiratory distress, no retraction, no accessory muscle use Cardiovascular #1: normal peripheral pulses, regular rate, rhythm, no gallop, no JVD, no murmur Gastrointestinal: normal bowel sounds, non tender, soft, no mass, no organomegaly, non-distended, no guarding, no hernia, no pulsatile mass, no rebound Musculoskeletal: normal inspection Neurologic: oriented x3, responsive, trim crew supervisor III-XII nml as tested, motor strength/ tone normal, sensory intact Psychiatric: mood/affect normal Skin: warm/dry, palpation normal, other - Dependent edema bilaterally Lymphatic: normal inspection, no adenopathy Medical Decision Making Diagnostic Impression: Primary Impression: CHF (congestive heart failure) Additional Impression: edema ER Course Patient was also found with a small bottle of what appears to be cocaine Patient has had drug abuse in the past has known cardiomyopathy with CHF Patient has been fairly noncompliant with his medication otherwise hemodynamically stable at this time lung sounds are appropriate patient was given dose of Lasix here and requires close outpatient follow-up Last Vital Signs Date Time Temp Pulse Resp B/P (MAP) Pulse Ox O2 Delivery O2 Flow Rate FiO2 11/04/18 03:23 98.4 103 20 122/96 96 Room Air Status: improved Disposition: HOME, SELF-CARE Condition: Stable Scripts Acetaminophen (Tylenol) 325 Mg Tablet 650 MG ORAL Q8 PRN for Prn Pain/Headache/Temp > 101, #15 TAB 0 Refills Prov: Arnulfo Wilkinson DO 11/04/18 Furosemide* (LASIX*) 40 Mg Tablet 40 MG ORAL DAILY, #20 TAB Prov: Arnulfo Wilkinson DO 11/04/18 Carvedilol* (CARVEDILOL*) 3.125 Mg Tablet 3.125 MG ORAL EVERY 12 HOURS, #20 TAB Prov: Arnulfo Wilkinson DO 11/04/18 Patient Instructions: Edema, Heart Failure, [id number] Additional Instructions: Patient is provided with the discharge instructions notified to follow up with primary doctor in the next 2-3 days otherwise return to the er with any worsening symptoms. Please note that this report is being documented using [employer] technology. This can lead to erroneous entry secondary to incorrect interpretation by the dictating instrument. Arnulfo Wilkinson DO Nov 04, 2018 03:39
[2018-11-04] MEDS ORDERED: Furosemide 40mg tab ORAL ONE (03:45)
[2018-11-04 03:50] VITALS: BP 122/96
[2018-11-04] MEDS ORDERED: TYLENOL325 MG ORAL (03:54)
[2018-11-04 04:00] VITALS: BP 126/82
== END 2018-11-04 04:05 | disposition home or self-care (01) ==
LOC: EMR 03:30
DX: I50.9 Heart failure, unspecified (principal); I42.9 Cardiomyopathy, unspecified
CPT/HCPCS: 99283

== ENCOUNTER 2018-11-12 07:15 | Emergency (ER) | payer OTHER ==
[~2018-11-12] VITALS: Ht 172.7 cm; Wt 106.6 kg
[~2018-11-12 07:15] MED LIST changes: +CARVEDILOL3.125 MG ORAL
[2018-11-12 07:43] VITALS: BP 120/84
[2018-11-12] MEDS ORDERED: traMADol 50mg tab ORAL ONE (08:00)
--- NOTE | 2018-11-12 08:19 | Emergency Room Report ---
History of Present Illness General Chief Complaint: Abdominal Pain Source: Patient Present Illness HPI Patient presents with abdominal pain that's constant. He he says is worse for 2 days but has been having a for many days. He's been noncompliant with his Lasix for treatment of his congestive heart failure. He denies any chest pain, fever, cough, nausea, vomiting or diarrhea. He is able to move his bowels without difficulty. He states he's not been eating. He's hungry at this time. He denies doing drugs recently. He was seen November 04 for swelling in his legs. He was noncompliant at that time. There is no report of abdominal pain at that time. He has a lesion on his penis for many months. Not painful. Since 2016 - treated at that time with Andressa 2.4 mu. 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 Reviewed Nursing Documentation: PMH: Agreed; PSxH: Agreed Nursing Documentation-PM Past Medical History: No History, Except For Hx Cardiac Problems: Yes - CHF Hx Cancer: No Hx Gastrointestinal Problems: No Review of Systems All Other Systems: negative except mentioned in HPI Physical Exam Vital Signs Date Time Temp Pulse Resp B/P (MAP) Pulse Ox O2 Delivery O2 Flow Rate FiO2 11/12/18 07:26 97.5 100 20 92/68 98 Room Air Sp02 EP Interpretation: reviewed, normal General Appearance: no apparent distress, alert, GCS 15, non-toxic, obese Head: normocephalic, atraumatic Eyes: bilateral eye PERRL, bilateral eye Scleral Injection ENT: moist mucus membranes Neck: supple Respiratory: lungs clear, normal breath sounds, decreased breath sounds Cardiovascular #1: regular rate, rhythm, edema - bilateral legs Cardiovascular #2: 2+ radial (R) Gastrointestinal: normal inspection, normal bowel sounds, soft, no mass, non- distended, no guarding, no rebound, tenderness - diffuse Genitourinary: no CVA tenderness, other - veruca L shaft of penis, not chancre Musculoskeletal: back normal, gait/station normal, normal range of motion, no calf tenderness, Braulio's Sign negative Neurologic: alert, oriented x3, grossly normal Psychiatric: no suicidal/homicidal ideation, other - slightly pressured Skin: warm/dry, other - venous disease legs Medical Decision Making Diagnostic Impression: Primary Impression: Abdominal pain Qualified Codes: R10.84 - Generalized abdominal pain Additional Impressions: Substance abuse CHF (congestive heart failure) Qualified Codes: I50.9 - Heart failure, unspecified Venereal wart ER Course Patient presents with abdominal pain with history of congestive heart failure. Differential includes pancreatitis, liver congestion from cor pulmonale, hepatitis, gallbladder disease, GERD, peptic ulcer disease amongst others. Patient will be evaluated with EKG, chest x-ray, abdominal films and labs. The patient will be treated with Lasix, Pepcid, Zofran and Toradol. EKG without injury. CXR poor inspiration. Labs with elevated WBC, but this has been present all visits. Troponin neg and neg LFTs. Tox + Amphetamines Diuresed. Pain improved with treatment. Counselled patient for stopping amphetamines. 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 Patient stable for outpatient observation and treatment. Laboratory Tests Test 11/12/18 08:13 White Blood Count 12.3 K/UL (4.8-10.8) H Red Blood Count 4.43 M/UL (4.70-6.10) L Hemoglobin 12.1 G/DL (14.2-18.0) L Hematocrit 38.8 % (42.0-52.0) L Mean Corpuscular Volume 88 FL (80-99) Mean Corpuscular Hemoglobin 27.4 PG (27.0-31.0) Mean Corpuscular Hemoglobin Concent 31.2 G/DL (32.0-36.0) L Red Cell Distribution Width 13.5 % (11.6-14.8) Platelet Count 224 K/UL (150-450) Mean Platelet Volume 8.2 FL (6.5-10.1) Neutrophils (%) (Auto) 66.2 % (45.0-75.0) Lymphocytes (%) (Auto) 24.6 % (20.0-45.0) Monocytes (%) (Auto) 6.7 % (1.0-10.0) Eosinophils (%) (Auto) 1.5 % (0.0-3.0) Basophils (%) (Auto) 1.1 % (0.0-2.0) Prothrombin Time 10.3 SEC (9.30-11.50) Prothrombin Time INR 1.0 (0.9-1.1) PTT 26 SEC (23-33) Urine Color Yellow Urine Appearance Slightly cloudy Urine pH 6 (4.5-8.0) Urine Specific [place] 1.020 (1.005-1.035) Urine Protein 2+ (NEGATIVE) H Urine Glucose (UA) Negative (NEGATIVE) Urine Ketones 1+ (NEGATIVE) H Urine Blood Negative (NEGATIVE) Urine Nitrite Negative (NEGATIVE) Urine Bilirubin Negative (NEGATIVE) Urine Urobilinogen 8 MG/DL (0.0-1.0) H Urine Leukocyte Esterase 1+ (NEGATIVE) H Urine RBC 0-2 /HPF (0 - 0) H Urine WBC 0-2 /HPF (0 - 0) Urine Squamous Epithelial Cells Occasional /LPF Urine Bacteria Few /HPF (NONE) Urine Mucus Moderate /LPF (NONE/OCC) H Sodium Level 139 MMOL/L (136-145) Potassium Level 3.8 MMOL/L (3.5-5.1) Chloride Level 105 MMOL/L (98-107) Carbon Dioxide Level 25 MMOL/L (21-32) Anion Gap 9 mmol/L (5-15) Blood Urea Nitrogen 14 mg/dL (7-18) Creatinine 1.3 MG/DL (0.55-1.30) Estimate Glomerular Filtration Rate > 60 mL/min (>60) Glucose Level 134 MG/DL (74-106) H Calcium Level 9.0 MG/DL (8.5-10.1) Total Bilirubin 1.5 MG/DL (0.2-1.0) H Direct Bilirubin 0.3 MG/DL (0.0-0.3) Aspartate Amino Transferase (AST) 28 U/L (15-37) Alanine Aminotransferase (ALT) 32 U/L (12-78) Alkaline Phosphatase 156 U/L (46-116) H Total Creatine Kinase 229 U/L (26-308) Troponin I 0.021 ng/mL (0.000-0.056) Total Protein 6.9 G/DL (6.4-8.2) Albumin 3.1 G/DL (3.4-5.0) L Globulin 3.8 g/dL Albumin/Globulin Ratio 0.8 (1.0-2.7) L Lipase 72 U/L (73-393) L Urine Opiates Screen Negative (NEGATIVE) Urine Barbiturates Screen Negative (NEGATIVE) Phencyclidine (PCP) Screen Negative (NEGATIVE) Urine Amphetamines Screen Positive (NEGATIVE) H Urine Benzodiazepines Screen Negative (NEGATIVE) Urine Cocaine Screen Negative (NEGATIVE) Urine Marijuana (THC) Screen Positive (NEGATIVE) H EKG Diagnostic Results Rate: normal Rhythm: NSR ST Segments: no acute changes - 0 degree axis, NSSTTW changes Rhythm Strip Diag. Results EP Interpretation: yes Rhythm: NSR, no PVC's, no ectopy Chest X-Ray Diagnostic Results Chest X-Ray Diagnostic Results : Chest X-Ray Ordered: Yes # of Views/Limited/Complete: 1 View Indication: Other EP Interpretation: Yes Interpretation: no effusion, no pneumothorax, other - poor insp Impression: Other Electronically Signed by: Electronically signed by Roel Alejo MD Last Vital Signs Date Time Temp Pulse Resp B/P (MAP) Pulse Ox O2 Delivery O2 Flow Rate FiO2 11/12/18 13:20 97.8 106 21 121/74 99 Room Air 98 Status: improved Disposition: HOME, SELF-CARE Condition: Improved Scripts Acetaminophen (Tylenol) 325 Mg Tablet 650 MG ORAL Q6H PRN for Prn Pain/Headache/Temp > 101, #20 TAB 0 Refills Prov: Roel Alejo MD 11/12/18 Furosemide* (LASIX*) 20 Mg Tablet 20 MG ORAL DAILY, #7 TAB Prov: Roel Alejo MD 11/12/18 Referrals: [facility],REFERRING (PCP) Roel Alejo MD Nov 12, 2018 08:19
--- NOTE | 2018-11-12 09:13 | Diagnostic Imaging Report ---
EXAM: XR Chest, 1 View CLINICAL HISTORY: ABD PAIN TECHNIQUE: Frontal view of the chest. COMPARISON: No relevant prior studies available. FINDINGS: Lungs: Reduced lung volumes with presumed vascular congestion. Pleural space: Unremarkable. No pneumothorax. Heart: Enlarged cardiomediastinal silhouette. Mediastinum: See above. Bones/joints: No acute fracture. IMPRESSION: Reduced lung volumes with presumed vascular congestion.
--- NOTE | 2018-11-12 09:14 | Diagnostic Imaging Report ---
EXAM: XR Abdomen, 1 View CLINICAL HISTORY: ABD PAIN TECHNIQUE: Frontal supine view of the abdomen/pelvis. COMPARISON: No relevant prior studies available. FINDINGS: Lower thorax: Cardiomegaly. Intraperitoneal space: Small radiodensity noted in the left upper abdomen. Gastrointestinal tract: Nonspecific bowel gas pattern. Bones/joints: No acute fracture. IMPRESSION: Nonspecific bowel gas pattern.
[2018-11-12 09:15] LABS: BASOPHILS % (AUTO) 1.1 % (0.0-2.0); EOSINOPHILS % (AUTO) 1.5 % (0.0-3.0); HEMATOCRIT 38.8 % (42.0-52.0); HEMOGLOBIN 12.1 G/DL (14.2-18.0); LYMPHOCYTES % (AUTO) 24.6 % (20.0-45.0); MEAN CORPUSCULAR VOLUME 88 FL (80-99); MONOCYTES % (AUTO) 6.7 % (1.0-10.0); NEUTROPHILS % (AUTO) 66.2 % (45.0-75.0); PLATELET COUNT 224 K/UL (150-450); RED BLOOD COUNT 4.43 M/UL (4.70-6.10); RED CELL DISTRIBUTION WIDTH 13.5 % (11.6-14.8); WHITE BLOOD COUNT 12.3 K/UL (4.8-10.8)
[2018-11-12 09:16] LABS: ANION GAP 9 mmol/L (5-15); BILIRUBIN, URINE NEGATIVE (NEGATIVE); BLOOD UREA NITROGEN 14 mg/dL (7-18); CARBON DIOXIDE 25 MMOL/L (21-32); CHLORIDE 105 MMOL/L (98-107); CREATININE 1.3 MG/DL (0.55-1.30); GLUCOSE, URINE (UA) NEGATIVE (NEGATIVE); KETONES,URINE 1+ (NEGATIVE); LEUKOCYTE ESTERASE ,URINE 1+ (NEGATIVE); NITRITE,URINE NEGATIVE (NEGATIVE); PH,URINE 6 (4.5-8.0); POTASSIUM 3.8 MMOL/L (3.5-5.1); PROTEIN,URINE 2+ (NEGATIVE); SODIUM 139 MMOL/L (136-145); UROBILINOGEN,URINE 8 MG/DL (0.0-1.0)
[2018-11-12 09:23] LABS: APPEARANCE,URINE SLIGHTLY CLOUDY; COLOR,URINE YELLOW
[2018-11-12 09:26] VITALS: BP 120/83
[2018-11-12 09:30] LABS: ALANINE AMINOTRANSFERASE 32 U/L (12-78); ALBUMIN 3.1 G/DL (3.4-5.0); ALBUMIN/GLOBULIN RATIO 0.8 (1.0-2.7); ALKALINE PHOSPHATASE 156 U/L (46-116); ASPARTATE AMINO TRANSFERASE 28 U/L (15-37); BILIRUBIN,TOTAL 1.5 MG/DL (0.2-1.0); CREATINE KINASE 229 U/L (26-308)
[2018-11-12 09:34] LABS: BILIRUBIN,DIRECT 0.3 MG/DL (0.0-0.3)
[2018-11-12] MEDS ORDERED: FUROSEMIDE20 M1 ORAL (13:15)
[2018-11-12] MEDS ORDERED: TYLENOL325 MG ORAL (13:15)
[2018-11-12 13:18] VITALS: BP 121/74
[2018-11-12 13:20] VITALS: BP 121/74
== END 2018-11-12 13:20 | disposition home or self-care (01) ==
LOC: EMR 07:58
DX: R10.84 Generalized abdominal pain (principal); I50.9 Heart failure, unspecified; F15.10 Other stimulant abuse, uncomplicated; A63.0 Anogenital (venereal) warts; Z72.0 Tobacco use
CPT/HCPCS: 36415; 71045; 74018; 80053; 80307; 81003; 82248; 82550; 83690; 84484; 85025; 85610; 85730; 93005; 96374; 96375; 99284; J1940; J2405; S0028

== ENCOUNTER 2018-11-15 03:40 | Emergency (ER) | payer OTHER ==
[~2018-11-15] VITALS: Ht 172.7 cm; Wt 99.8 kg
[2018-11-15 04:00] VITALS: BP 133/88
--- NOTE | 2018-11-15 04:11 | Emergency Room Report ---
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 Ejection fraction around 20%. He is noncompliant with medication. He's been here numerous times. He presents with chief complaint abdominal pain. Onset for last couple days. He denies any drug use. Pain is diffuse. 8 out of 10. Medicine prescribed him is not helping. No fever chills but no nausea no vomiting. No radiation. Similar symptom in the past. He was here 3 days ago for the same. Nothing made it better. Nothing made it worse. Allergies: Coded Allergies: No Known Allergies (Unverified , 08/25/13) Patient History Past Medical History: see triage record, old chart reviewed Past Surgical History: other Pertinent Family History: none Social History: Reports: alcohol use, drug use Immunizations: other Reviewed Nursing Documentation: PMH: Agreed; PSxH: Agreed Nursing Documentation-PMH Past Medical History: No History, Except For Hx Cardiac Problems: Yes - CHF Hx Cancer: No Hx Gastrointestinal Problems: No Review of Systems Eye: Denies: eye pain, blurred vision ENT: Denies: ear pain, nose congestion, throat swelling Respiratory: Denies: cough, shortness of breath Cardiovascular: Denies: chest pain, palpitations Gastrointestinal: Reports: abdominal pain; Denies: diarrhea, nausea, vomiting Musculoskeletal: Denies: back pain, joint pain Skin: Denies: rash Neurological: Denies: headache, numbness Endocrine: Denies: increased thirst, increased urine Hematologic/Lymphatic: Denies: easy bruising All Other Systems: negative except mentioned in HPI Physical Exam Vital Signs Date Time Temp Pulse Resp B/P (MAP) Pulse Ox O2 Delivery O2 Flow Rate FiO2 11/15/18 03:49 97.9 102 18 133/88 99 Room Air vital signs unremarkable Sp02 EP Interpretation: reviewed, normal General Appearance: well appearing, no apparent distress, alert, obese Head: normocephalic, atraumatic Eyes: bilateral eye PERRL, bilateral eye EOMI ENT: hearing grossly normal, normal pharynx Neck: full range of motion, supple, no meningismus Respiratory: chest non-tender, lungs clear, normal breath sounds Cardiovascular #1: regular rate, rhythm, no murmur Gastrointestinal: normal bowel sounds, no mass, no organomegaly, no bruit, non- distended, tenderness - Diffuse lower Quadrants Musculoskeletal: back normal, gait/station normal, normal range of motion Neurologic: alert, oriented x3 Psychiatric: mood/affect normal Skin: warm/dry Medical Decision Making Diagnostic Impression: Primary Impression: Abdominal pain Qualified Codes: R10.84 - Generalized abdominal pain Additional Impressions: Amphetamine abuse Chronic pain Qualified Codes: G89.4 - Chronic pain syndrome Noncompliance ER Course Patient with abdominal pain. No obvious source of his pain. No evidence of infection. Patient had recent urinalysis was negative. He has no urinary complaint of pyelonephritis. Most likely secondary to edema from his CHF. We' ll discharge home. CT/MRI/US Diagnostic Results CT/MRI/US Diagnostic Results : Imaging Test Ordered: CT abdomen and pelvis Impression Read by radiologist. Mild perinephric stranding. Mild pulmonary congestion. Last Vital Signs Date Time Temp Pulse Resp B/P (MAP) Pulse Ox O2 Delivery O2 Flow Rate FiO2 11/15/18 03:49 97.9 102 18 133/88 99 Room Air Status: improved Disposition: HOME, SELF-CARE Condition: Stable Scripts Ibuprofen* (MOTRIN*) 600 Mg Tablet 600 MG ORAL Q6H PRN for For Pain, #30 TAB Prov: Eliel Lyoola MD 11/15/18 Patient Instructions: Abdominal Pain, Adult Additional Instructions: Stop using drugs. Go to rehabilitation. Follow-up your doctor in 7 days. Take your medication. Return if worse. Eliel Loyola MD Nov 15, 2018 04:11
[2018-11-15 05:21] VITALS: BP 140/86
--- NOTE | 2018-11-15 05:24 | Diagnostic Imaging Report ---
EXAM: CT Abdomen and Pelvis Without Intravenous Contrast CLINICAL HISTORY: ABD PAIN TECHNIQUE: Axial computed tomography images of the abdomen and pelvis without intravenous contrast. CTDI is 19.5 mGy and DLP is 1123 mGy-cm. One or more of the following dose reduction techniques were used: automated exposure control, adjustment of the mA and/or kV according to patient size, use of iterative reconstruction technique. Coronal and sagittal reformatted images were created and reviewed. COMPARISON: CT 03/20/18 FINDINGS: Limitations: The study slightly limited by motion. Lung bases: Subtle hazy density is once again seen within the lung bases which may reflect a degree of pulmonary edema or other interstitial process. Heart: Cardiomegaly. ABDOMEN: Liver: Unremarkable. Gallbladder and bile ducts: Unremarkable. No calcified stones. No ductal dilation. Pancreas: Unremarkable. No ductal dilation. Spleen: Unremarkable. No splenomegaly. Adrenals: Unremarkable. No mass. Kidneys and ureters: Nonspecific bilateral perinephric stranding slightly worse on the left. Correlate for pyelonephritis. No obstructing stones. Stomach and bowel: Unremarkable. No obstruction. No mucosal thickening. PELVIS: Appendix: No findings to suggest acute appendicitis. Bladder: Unremarkable. No stones. Reproductive: Unremarkable as visualized. ABDOMEN and PELVIS: Intraperitoneal space: Trace amount of free fluid. No free air. Bones/joints: Degenerative changes of the spine with transitional anatomy. Degenerative changes of the hips with subchondral cysts within the acetabulum. Disc bulges are seen at multiple levels of the lumbar spine. No acute fracture. No dislocation. Soft tissues: Fat within bilateral inguinal canals which may reflect hernias. Nonspecific anterior subcutaneous fat stranding, correlate for a degree of anasarca. Vasculature: Unremarkable. No abdominal aortic aneurysm. Lymph nodes: Unremarkable. No enlarged lymph nodes. IMPRESSION: The study slightly limited by motion. 1. Nonspecific bilateral perinephric stranding slightly worse on the left. Correlate for pyelonephritis. 2. Subtle hazy density is once again seen within the lung bases which may reflect a degree of pulmonary edema or other interstitial process. 3. Trace amount of free fluid. 4. Fat within bilateral inguinal canals which may reflect hernias.
[2018-11-15] MEDS ORDERED: IBUPROFEN600 MG ORAL (05:27)
[2018-11-15 05:33] VITALS: BP 140/86
== END 2018-11-15 05:34 | disposition home or self-care (01) ==
LOC: EMR 04:07
DX: R10.9 Unspecified abdominal pain (principal); F15.10 Other stimulant abuse, uncomplicated; G89.29 Other chronic pain; Z91.14 Patient's other noncompliance with medication regimen; I50.9 Heart failure, unspecified; I42.8 Other cardiomyopathies
CPT/HCPCS: 74176; 99284

== ENCOUNTER 2018-11-30 02:30 | Emergency (ER) | payer OTHER ==
[~2018-11-30] VITALS: Ht 172.7 cm; Wt 90.7 kg
--- NOTE | 2018-11-30 02:40 | NUR ---
ED Nurse Note: Patient presented with complaints of abdominal and chest pain since earlier today. Patient has left lower extremity swelling +2. Patient notes an episode of emesis as well. He has been able to eat, his last bowel movement was today and it was normal, flatus present. Patient able to void.
[2018-11-30 02:49] VITALS: BP 104/80
--- NOTE | 2018-11-30 02:59 | Emergency Room Report ---
History of Present Illness General Chief Complaint: Chest Pain Source: Patient Present Illness HPI Patient presents with complaints of shortness of breath Appears more agitated than his usual presentation Patient is here with mom Denies any chest pain However becomes more short of breath laying down has not been able to sleep tonight Increased edema diffusely including his legs Patient reports being compliant with medications however does not know the dosage of his medications and does not recall the last time he took his medications Denies any recent travel Denies any fevers denies any neck pain or photophobia Allergies: Coded Allergies: No Known Allergies (Unverified , 08/25/13) Patient History Past Medical History: see triage record Pertinent Family History: none Reviewed Nursing Documentation: PMH: Agreed; PSxH: Agreed Nursing Documentation-PMH Hx Cardiac Problems: Yes - CHF Hx Cancer: No Hx Gastrointestinal Problems: No Review of Systems All Other Systems: negative except mentioned in HPI Physical Exam Vital Signs Date Time Temp Pulse Resp B/P (MAP) Pulse Ox O2 Delivery O2 Flow Rate FiO2 11/30/18 02:33 98.1 61 20 145/88 97 Room Air Sp02 EP Interpretation: reviewed, normal General Appearance: mild distress - Appears agitated Head: normocephalic, atraumatic Eyes: bilateral eye PERRL, bilateral eye EOMI ENT: normal pharynx Neck: supple Respiratory: no retraction, no accessory muscle use, crackles - Both lower lobes Cardiovascular #1: tachycardia Gastrointestinal: non tender, soft Musculoskeletal: normal inspection Neurologic: alert, oriented x3, responsive Skin: other - Edema diffusely Lymphatic: no adenopathy Medical Decision Making Diagnostic Impression: Primary Impression: CHF (congestive heart failure) Additional Impressions: Amphetamine abuse Renal insufficiency ER Course Patient is a fairly complex patient with multiple differential to consideration including but not limited to cardiac cardiopulmonary and vascular emergencies Patient's presentation today seems significantly worse than previous presentations therefore extensive workup was initiated x-ray shows Pulmonary congestion Patient clinically appears agitated and appears to be under the influence of drugs Amphetamine is positive in the urine Patient has very poor ejection fraction documented previously of approximately 20% Patient appears to be in acute CHF further diuretics are provided Patient's mom is at bedside she reports that she is understanding of the patient 's poor disposition and complexity Labs Test 11/30/18 03:23 11/30/18 03:25 Urine Opiates Screen Negative (NEGATIVE) Urine Barbiturates Screen Negative (NEGATIVE) Phencyclidine (PCP) Screen Negative (NEGATIVE) Urine Amphetamines Screen Positive (NEGATIVE) Urine Benzodiazepines Screen Negative (NEGATIVE) Urine Cocaine Screen Negative (NEGATIVE) Urine Marijuana (THC) Screen Positive (NEGATIVE) White Blood Count 12.7 K/UL (4.8-10.8) Red Blood Count 4.63 M/UL (4.70-6.10) Hemoglobin 12.1 G/DL (14.2-18.0) Hematocrit 39.7 % (42.0-52.0) Mean Corpuscular Volume 86 FL (80-99) Mean Corpuscular Hemoglobin 26.1 PG (27.0-31.0) Mean Corpuscular Hemoglobin Concent 30.5 G/DL (32.0-36.0) Red Cell Distribution Width 15.1 % (11.6-14.8) Platelet Count 231 K/UL (150-450) Mean Platelet Volume 8.0 FL (6.5-10.1) Neutrophils (%) (Auto) 74.1 % (45.0-75.0) Lymphocytes (%) (Auto) 19.6 % (20.0-45.0) Monocytes (%) (Auto) 4.8 % (1.0-10.0) Eosinophils (%) (Auto) 0.9 % (0.0-3.0) Basophils (%) (Auto) 0.7 % (0.0-2.0) Sodium Level 140 MMOL/L (136-145) Potassium Level 3.2 MMOL/L (3.5-5.1) Chloride Level 105 MMOL/L (98-107) Carbon Dioxide Level 25 MMOL/L (21-32) Anion Gap 10 mmol/L (5-15) Blood Urea Nitrogen 16 mg/dL (7-18) Creatinine 1.2 MG/DL (0.55-1.30) Estimat Glomerular Filtration Rate > 60 mL/min (>60) Glucose Level 115 MG/DL (74-106) Calcium Level 8.5 MG/DL (8.5-10.1) Total Bilirubin 1.0 MG/DL (0.2-1.0) Aspartate Amino Transf (AST/SGOT) 35 U/L (15-37) Alanine Aminotransferase (ALT/SGPT) 45 U/L (12-78) Alkaline Phosphatase 175 U/L (46-116) Total Creatine Kinase 162 U/L (26-308) Creatine Kinase MB 2.9 NG/ML (0.0-3.6) Creatine Kinase MB Relative Index 1.7 Troponin I 0.048 ng/mL (0.000-0.056) Pro-B-Type Natriuretic Peptide 2112 pg/mL (0-125) Total Protein 7.2 G/DL (6.4-8.2) Albumin 3.2 G/DL (3.4-5.0) Globulin 4.0 g/dL Albumin/Globulin Ratio 0.8 (1.0-2.7) EKG Diagnostic Results Rate: tachycardiac Rhythm: other ST Segments: other - Nonspecific ST, T wave changes Rhythm Strip Diag. Results EP Interpretation: yes Rate: 110 Rhythm: no PVC's, no ectopy, other - Sinus tach Chest X-Ray Diagnostic Results Chest X-Ray Diagnostic Results : Chest X-Ray Ordered: Yes # of Views/Limited/Complete: 1 View Indication: Shortness of Breath EP Interpretation: Yes Interpretation: no consolidation, no pneumothorax, other - Cardiomegaly pulmonary congestion Impression: Other - Acute CHF Electronically Signed by: Arnulfo Wilkinson DO Last Vital Signs Date Time Temp Pulse Resp B/P (MAP) Pulse Ox O2 Delivery O2 Flow Rate FiO2 11/30/18 02:33 98.1 61 20 145/88 97 Room Air Status: improved Disposition: XFER SHT-TRM HOSP Condition: Serious Referrals: [facility],REFERRING (PCP) Arnulfo Wilkinson DO Nov 30, 2018 02:59
[2018-11-30] MEDS ORDERED: LORazepam Inj 2mg/ml 1ml IV ONE (03:00)
--- NOTE | 2018-11-30 03:47 | NUR ---
ED Nurse Note: Patient tolerated medications well. patient still is in sinus tachy, all other vital signs within normal range. Patient is voiding with urinal at bedside.
[2018-11-30 03:48] VITALS: BP 109/81
[2018-11-30 03:55] LABS: ANION GAP 10 mmol/L (5-15); BLOOD UREA NITROGEN 16 mg/dL (7-18); CALCIUM 8.5 MG/DL (8.5-10.1); CARBON DIOXIDE 25 MMOL/L (21-32); CHLORIDE 105 MMOL/L (98-107); CREATININE 1.2 MG/DL (0.55-1.30); POTASSIUM 3.2 MMOL/L (3.5-5.1); SODIUM 140 MMOL/L (136-145)
[2018-11-30 03:59] LABS: BASOPHILS % (AUTO) 0.7 % (0.0-2.0); EOSINOPHILS % (AUTO) 0.9 % (0.0-3.0); HEMATOCRIT 39.7 % (42.0-52.0); HEMOGLOBIN 12.1 G/DL (14.2-18.0); LYMPHOCYTES % (AUTO) 19.6 % (20.0-45.0); MEAN CORPUSCULAR VOLUME 86 FL (80-99); MONOCYTES % (AUTO) 4.8 % (1.0-10.0); NEUTROPHILS % (AUTO) 74.1 % (45.0-75.0); PLATELET COUNT 231 K/UL (150-450); RED BLOOD COUNT 4.63 M/UL (4.70-6.10); RED CELL DISTRIBUTION WIDTH 15.1 % (11.6-14.8); WHITE BLOOD COUNT 12.7 K/UL (4.8-10.8)
[2018-11-30 04:12] LABS: ALANINE AMINOTRANSFERASE 45 U/L (12-78); ALBUMIN 3.2 G/DL (3.4-5.0); ALBUMIN/GLOBULIN RATIO 0.8 (1.0-2.7); ALKALINE PHOSPHATASE 175 U/L (46-116); ASPARTATE AMINO TRANSFERASE 35 U/L (15-37); CKMB 2.9 NG/ML (0.0-3.6); CREATINE KINASE 162 U/L (26-308)
--- NOTE | 2018-11-30 04:20 | NUR ---
ED Nurse Note: Patient tolerating Bipap well, low potassium reported to ERMD, received order to give 20 meq of potassium PO along with second push of lasix. Patient mother at bedside, patient resting comfortably on bipap machine.
[2018-11-30 05:13] VITALS: BP 104/97
--- NOTE | 2018-11-30 05:13 | NUR ---
ED Nurse Note: Patient cleared for transfer, MISAEL arrived for nut picker at this time. Patient is A&Ox4, ambulatory with steady gait, vital signs stable at BP: 104/97, RR: 27 O2sat: 100%;RA, pulse: 114. Report given to MISAEL and called in to Vitor BALDERAS at [facility]. Patient took all of his belongings, IV remained in place at right medial upper arm, 24 G patent with good blood return.
--- NOTE | 2018-11-30 10:27 | Diagnostic Imaging Report ---
Indication: Dyspnea Comparison: 11/12/2018 A single view chest radiograph was obtained. Findings: There is enlargement of the cardiac silhouette with pulmonary vascular redistribution and prominence, hazy vessel margins and the suggestion of interstitial edema consistent with CHF. IMPRESSION: Congestive heart failure slightly worse
--- NOTE | 2018-11-30 16:06 | Cardiology Report ---
APPROVED REPORT EKG Measurement Heart [id number] Sinus tachycardia Possible Anterior infarct, age undetermined Abnormal ECG
== END 2018-11-30 05:13 | disposition short-term general hospital (02) ==
LOC: EMR 02:54
DX: I50.9 Heart failure, unspecified (principal); F15.10 Other stimulant abuse, uncomplicated; N28.9 Disorder of kidney and ureter, unspecified
CPT/HCPCS: 36415; 71045; 80053; 80307; 82550; 82553; 83880; 84484; 85025; 93005; 94664; 96374; 96375; 99284; J1940; J8499

== ENCOUNTER 2018-12-05 07:59 | Emergency (ER) | payer OTHER ==
[~2018-12-05] VITALS: Ht 172.7 cm; Wt 90.7 kg
[2018-12-05] MEDS ORDERED: FUROSEMIDE20 M1 ORAL (08:08)
[2018-12-05] MEDS ORDERED: ASPIR 8181 MG ORAL (08:08)
--- NOTE | 2018-12-05 08:13 | NUR ---
ED Nurse Note: Pt came into the ER w/ complaints of SOB since last night. Pt sating at 99% on room air in the ER. Pt states that it started after going to the store. Pt was just discharged from [facility] x 2 days ago for CHF. Pt takes lasix for CHF. A + O x4. Ambulatory. Skin warm to touch. Complaining of 10/10 generalized body pain.
[2018-12-05 08:15] VITALS: BP 113/93
[2018-12-05 09:58] VITALS: BP 110/85
--- NOTE | 2018-12-05 09:59 | NUR ---
ED Nurse Note: Discharge instructions given to pt. Answered all questions. Verbalized understanding. No acute distress noted. ID band removed. Left ER w/ steady gait and all belongings.
--- NOTE | 2018-12-06 06:51 | Emergency Room Report ---
History of Present Illness General Chief Complaint: Upper Respiratory Illness Source: Patient Present Illness HPI Patient presents with complaints of feeling short of breath he reports That as he was walking to the store he became more short of breath Denies any chest pain with this denies any headache denies any vomiting or diarrhea I do recall seeing the patient recently and it appears the patient had been transferred to [facility] was dispositioned home in the last 2 days Denies any vomiting or diarrhea denies any fevers or chills denies any neck pain or photophobia The shortness of breath is worse with exertion Allergies: Coded Allergies: No Known Allergies (Unverified , 08/25/13) Patient History Past Medical History: see triage record Pertinent Family History: none Reviewed Nursing Documentation: PMH: Agreed; PSxH: Agreed Nursing Documentation-PMH Past Medical History: No History, Except For Hx Cardiac Problems: Yes - CHF Hx Cancer: No Hx Gastrointestinal Problems: No Review of Systems All Other Systems: negative except mentioned in HPI Physical Exam Vital Signs Date Time Temp Pulse Resp B/P (MAP) Pulse Ox O2 Delivery O2 Flow Rate FiO2 12/05/18 08:02 98.1 110 22 125/73 98 Room Air 12/05/18 08:15 100 Sp02 EP Interpretation: reviewed, normal General Appearance: well appearing, no apparent distress Head: normocephalic, atraumatic Eyes: bilateral eye PERRL, bilateral eye EOMI ENT: hearing grossly normal, normal pharynx, TMs + canals normal, uvula midline Neck: full range of motion, supple, no meningismus, no bony tend Respiratory: lungs clear, normal breath sounds, no rhonchi, no respiratory distress, no retraction, no accessory muscle use Cardiovascular #1: normal peripheral pulses, regular rate, rhythm, no gallop, no JVD, no murmur Gastrointestinal: normal bowel sounds, non tender, soft, no mass, no organomegaly, non-distended, no guarding, no hernia, no pulsatile mass, no rebound Musculoskeletal: normal inspection Neurologic: oriented x3, responsive, hypnotherapist III-XII nml as tested, motor strength/ tone normal, sensory intact Psychiatric: mood/affect normal Skin: warm/dry, palpation normal, other - Mild edema bilaterally lower extremities it does appear somewhat improved from previous Lymphatic: normal inspection, no adenopathy Medical Decision Making Diagnostic Impression: Primary Impression: CHF (congestive heart failure) ER Course Patient is a fairly complex patient with multiple differential to consideration including but not limited to cardiac cardiopulmonary and vascular emergencies Patient's initial heart rate was 110 at triage however after being allowed to sit and rest heart rate is down to 80 Patient saturating well lung sounds are clear Patient has significant noncompliance with medications Patient was just hospitalized recently the edema appears improved patient's symptoms are consistent with Baseline congestive heart failure Patient observed continues to saturate well respirations are appropriate on disposition he reports that he needs to feel better as he plans on going Out for [employer] He was encouraged to rest and it was discussed that further exertion today would not be recommended Rhythm Strip Diag. Results EP Interpretation: yes Rate: 80 Rhythm: NSR, no PVC's, no ectopy Last Vital Signs Date Time Temp Pulse Resp B/P (MAP) Pulse Ox O2 Delivery O2 Flow Rate FiO2 12/05/18 09:58 98.0 110 34 110/85 99 Room Air 12/05/18 08:15 100 Status: improved Disposition: HOME, SELF-CARE Condition: Stable Referrals: [facility],REFERRING (PCP) Patient Instructions: Heart Failure, [id number] Additional Instructions: Patient is provided with the discharge instructions notified to follow up with primary doctor in the next 2-3 days otherwise return to the er with any worsening symptoms. Please note that this report is being documented using [employer] technology. This can lead to erroneous entry secondary to incorrect interpretation by the dictating instrument. Arnulfo Wilkinson DO Dec 06, 2018 06:51
== END 2018-12-05 10:00 | disposition home or self-care (01) ==
LOC: EMR 08:22
DX: I50.9 Heart failure, unspecified (principal)
CPT/HCPCS: 99283

== ENCOUNTER 2018-12-13 00:36 | Emergency (ER) | payer OTHER ==
[~2018-12-13] VITALS: Ht 172.7 cm; Wt 99.8 kg
[~2018-12-13 00:36] MED LIST changes: +ASPIR 8181 MG ORAL
--- NOTE | 2018-12-13 00:50 | NUR ---
ED Nurse Note: Patient presents with pain of the abdomen. pt stated he has abdominal pain because he has std, complainting of 7/10 pain. will continue to monitor.
[2018-12-13] MEDS ORDERED: PRILOSEC OTC20 MG ORAL (01:08)
--- NOTE | 2018-12-13 01:09 | Emergency Room Report ---
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 His ejection is around 20%. He is noncompliant with her medication and is using methamphetamine. He presents with chief complaint abdominal pain. This is a chronic problem for him. Point to the epigastric area. He's been here numerous times for the same thing. He is also said he been to [facility] and other hospitals for same. Pain is 9 out of 10. No nausea no vomiting. No fever or chills. Worse with exertion. He also said he has a lesion on his penis. It has been there for a year. Never seen anybody for it. No pain. Sexually active with unprotected sex. Allergies: Coded Allergies: No Known Allergies (Unverified , 08/25/13) Patient History Past Medical History: see triage record, old chart reviewed Past Surgical History: none Pertinent Family History: none Social History: Reports: drug use Immunizations: other Reviewed Nursing Documentation: PMH: Agreed; PSxH: Agreed Nursing Documentation-PMH Hx Cardiac Problems: Yes Hx Hypertension: Yes Hx Cancer: No Hx Gastrointestinal Problems: No Review of Systems Eye: Denies: eye pain, blurred vision ENT: Denies: ear pain, nose congestion, throat swelling Respiratory: Denies: cough, shortness of breath Cardiovascular: Denies: chest pain, palpitations Gastrointestinal: Reports: abdominal pain; Denies: diarrhea, nausea, vomiting Musculoskeletal: Denies: back pain, joint pain Skin: Denies: rash Neurological: Denies: headache, numbness Endocrine: Denies: increased thirst, increased urine Hematologic/Lymphatic: Denies: easy bruising All Other Systems: negative except mentioned in HPI Physical Exam Vital Signs Date Time Temp Pulse Resp B/P (MAP) Pulse Ox O2 Delivery O2 Flow Rate FiO2 12/13/18 00:44 97.9 122 22 97 Room Air vitals with tachycardia Sp02 EP Interpretation: reviewed, normal General Appearance: well appearing, no apparent distress, alert, obese Head: normocephalic, atraumatic Eyes: bilateral eye PERRL, bilateral eye EOMI ENT: hearing grossly normal, normal pharynx Neck: full range of motion, supple, no meningismus Respiratory: chest non-tender, lungs clear, normal breath sounds Cardiovascular #1: regular rate, rhythm, no murmur Gastrointestinal: normal bowel sounds, non tender, no mass, no organomegaly, no bruit, non-distended Genitourinary: other - [place] To gland of penis Musculoskeletal: back normal, gait/station normal, normal range of motion Neurologic: alert, oriented x3 Psychiatric: mood/affect normal Skin: warm/dry Medical Decision Making Diagnostic Impression: Primary Impression: Abdominal pain Qualified Codes: R10.84 - Generalized abdominal pain Additional Impressions: Amphetamine abuse [place], syphilitic ER Course Patient presents with abdominal pain. This most likely gastritis. He is noncompliant with medication. He has a history of CHF but not vertically taking his medicine. He is not hypoxic. Walking around without any difficulty. Penile lesion consistent with syphilis. Penicillin given here. Last Vital Signs Date Time Temp Pulse Resp B/P (MAP) Pulse Ox O2 Delivery O2 Flow Rate FiO2 12/13/18 00:44 97.9 122 22 97 Room Air Status: improved Disposition: HOME, SELF-CARE Condition: Stable Scripts Omeprazole Magnesium (PRILOSEC OTC) 20 Mg Tablet. 20 MG ORAL DAILY, #30 TAB Prov: Eliel Loyola MD 12/13/18 Additional Instructions: Stop using drugs. Take your medication. Recommend outpatient testing for HIV, hepatitis, syphilis, and other STDs. Return if worse. Eliel Loyola MD Dec 13, 2018 01:09
[2018-12-13] MEDS ORDERED: Ketorolac 60mg Inj IM ONE ×2 (01:15)
[2018-12-13] MEDS ORDERED: Bicillin LA 2.4MMU/4ML SYR IM ONE (01:15)
[2018-12-13 01:20] VITALS: BP 115/75
--- NOTE | 2018-12-13 01:20 | NUR ---
ED Nurse Note: pt was cleared for discharge by ermd, prescription and discharge instruction explained and pt able to verbalize understanding. id band removed. pt aox4. pt able to wlak with steady gait. pt left the ed with all belongings.
== END 2018-12-13 01:20 | disposition home or self-care (01) ==
LOC: EMR 00:48
DX: R10.13 Epigastric pain (principal); F15.10 Other stimulant abuse, uncomplicated; A51.0 Primary genital syphilis; I10 Essential (primary) hypertension
CPT/HCPCS: 99283

== ENCOUNTER 2018-12-16 05:34 | Emergency (ER) | payer OTHER ==
[~2018-12-16] VITALS: Ht 172.7 cm; Wt 99.8 kg
[~2018-12-16 05:34] MED LIST changes: +PRILOSEC OTC20 MG ORAL
[2018-12-16] MEDS ORDERED: Aspirin Baby 81mg ORAL ONE (06:00)
--- NOTE | 2018-12-16 06:05 | NUR ---
ED Nurse Note: RECIEVED PT FROM HOME, AWAKE, ALERT AND ORIENTED X 4, PT HERE WITH C/O SOB, PT HAS HX OF CHF AND HERE ABOUT 2 TIMES WEEKLY FOR TREATMENT, PT IS NON-COMPLIANT WITH MEDS AT HOME AND CANT SAY WHY, PT ALSO C/O ABD PAIN, ALL OVER, AT 08/24, PT DENIES CP, NO SOB NOTED, IMMEDIATELY GOWNED AND PLACED ON MONITORING, WILL RESUME CARE ORDERED AND CONTINUE TO CLOSELY MONITOR.
[2018-12-16 06:25] LABS: BASOPHILS % (AUTO) 0.8 % (0.0-2.0); EOSINOPHILS % (AUTO) 0.8 % (0.0-3.0); HEMATOCRIT 37.6 % (42.0-52.0); HEMOGLOBIN 11.7 G/DL (14.2-18.0); LYMPHOCYTES % (AUTO) 20.3 % (20.0-45.0); MEAN CORPUSCULAR VOLUME 83 FL (80-99); MONOCYTES % (AUTO) 6.3 % (1.0-10.0); NEUTROPHILS % (AUTO) 71.9 % (45.0-75.0); PLATELET COUNT 231 K/UL (150-450); RED BLOOD COUNT 4.56 M/UL (4.70-6.10); RED CELL DISTRIBUTION WIDTH 15.6 % (11.6-14.8); WHITE BLOOD COUNT 12.7 K/UL (4.8-10.8)
[2018-12-16 06:39] LABS: ANION GAP 11 mmol/L (5-15); BLOOD UREA NITROGEN 16 mg/dL (7-18); CALCIUM 8.8 MG/DL (8.5-10.1); CARBON DIOXIDE 23 MMOL/L (21-32); CHLORIDE 104 MMOL/L (98-107); CREATININE 1.3 MG/DL (0.55-1.30); SODIUM 138 MMOL/L (136-145)
--- NOTE | 2018-12-16 06:39 | Emergency Room Report ---
History of Present Illness General Chief Complaint: Dyspnea/Respdistress Present Illness HPI Patient is a 38-year-old male who presented after increased shortness of breath. Patient a prior history of congestive heart failure. He reports having some increased cough. Patient states that he has not been using drugs although he has a pretty substantial history of methamphetamine as well as marijuana abuse. Patient prior history of cardiomyopathy. He denies any fever. He reports having been compliant with his Lasix. Patient reports having decreased exercise tolerance and increased orthopnea. He reports having gradual onset of symptoms over the past few days. Patient had recent hospitalization. (Sae Sanchez MD) Allergies: Coded Allergies: No Known Allergies (Unverified , 08/25/13) Patient History Past Medical History: see triage record Reviewed Nursing Documentation: PMH: Agreed; PSxH: Agreed (Sae Sanchez MD) Nursing Documentation-PMH Hx Cardiac Problems: Yes Hx Hypertension: Yes Hx Cancer: No Hx Gastrointestinal Problems: No (Sae Sanchez MD) Review of Systems All Other Systems: negative except mentioned in HPI (Sae Sanchez MD) Physical Exam Vital Signs Date Time Temp Pulse Resp B/P (MAP) Pulse Ox O2 Delivery O2 Flow Rate FiO2 12/16/18 05:42 97.5 109 16 129/94 95 Room Air Sp02 EP Interpretation: reviewed, normal General Appearance: normal inspection, well appearing, no apparent distress, alert, GCS 15, obese, Chronically Ill Head: atraumatic ENT: normal ENT inspection, hearing grossly normal, normal voice Neck: normal inspection, full range of motion, supple, no bony tend Respiratory: normal inspection, no respiratory distress, no retraction, decreased breath sounds Cardiovascular #1: regular rate, rhythm, no edema Gastrointestinal: normal inspection, normal bowel sounds, non tender, soft, no guarding, no hernia Genitourinary: no CVA tenderness Musculoskeletal: normal inspection, back normal, normal range of motion Neurologic: normal inspection, alert, oriented x3, responsive, attendance clerk III-XII nml as tested, speech normal Psychiatric: normal inspection, judgement/insight normal, mood/affect normal Skin: normal inspection, normal color, no rash (Sae Sanchez MD) Medical Decision Making Diagnostic Impression: Primary Impression: CHF (congestive heart failure) Additional Impression: Amphetamine abuse ER Course Patient presented for shortness of breath. Differential included but was not limited to anemia, pneumonia, pneumothorax, myocardial infarction, pericardial effusion, congestive heart failure, acidosis. Because of complexity of patient' s case laboratory testing and imaging studies were ordered. Patient was endorsed to Dr. Wilkinson pending laboratory testing Labs Test 12/16/18 06:00 12/16/18 06:05 White Blood Count 12.7 K/UL (4.8-10.8) Red Blood Count 4.56 M/UL (4.70-6.10) Hemoglobin 11.7 G/DL (14.2-18.0) Hematocrit 37.6 % (42.0-52.0) Mean Corpuscular Volume 83 FL (80-99) Mean Corpuscular Hemoglobin 25.6 PG (27.0-31.0) Mean Corpuscular Hemoglobin Concent 31.1 G/DL (32.0-36.0) Red Cell Distribution Width 15.6 % (11.6-14.8) Platelet Count 231 K/UL (150-450) Mean Platelet Volume 8.5 FL (6.5-10.1) Neutrophils (%) (Auto) 71.9 % (45.0-75.0) Lymphocytes (%) (Auto) 20.3 % (20.0-45.0) Monocytes (%) (Auto) 6.3 % (1.0-10.0) Eosinophils (%) (Auto) 0.8 % (0.0-3.0) Basophils (%) (Auto) 0.8 % (0.0-2.0) (Sae Sanchez MD) ER Course Please for the initial note for the history and exam At this time patient continued to complain of some shortness of breath Was given further Lasix Saturations remain appropriate X-ray shows concerning findings of CHF Given the patient's comorbidities poor EF and outpatient disposition Patient was requested for admission and secondary to insurance request is being transferred Please note that I did make contact with the case management, I did voice my concerns regarding the patient's multiple visits to the emergency room They report that the patient is on there high risk red flag, and is being followed by a high risk case management I did not receive a call back as of yet Labs Test 12/16/18 06:00 2 06:05 Urine Opiates Screen Negative (NEGATIVE) Urine Barbiturates Screen Negative (NEGATIVE) Phencyclidine (PCP) Screen Negative (NEGATIVE) Urine Amphetamines Screen Negative (NEGATIVE) Urine Benzodiazepines Screen Negative (NEGATIVE) Urine Cocaine Screen Negative (NEGATIVE) Urine Marijuana (THC) Screen Positive (NEGATIVE) White Blood Count 12.7 K/UL (4.8-10.8) Red Blood Count 4.56 M/UL (4.70-6.10) Hemoglobin 11.7 G/DL (14.2-18.0) Hematocrit 37.6 % (42.0-52.0) Mean Corpuscular Volume 83 FL (80-99) Mean Corpuscular Hemoglobin 25.6 PG (27.0-31.0) Mean Corpuscular Hemoglobin Concent 31.1 G/DL (32.0-36.0) Red Cell Distribution Width 15.6 % (11.6-14.8) Platelet Count 231 K/UL (150-450) Mean Platelet Volume 8.5 FL (6.5-10.1) Neutrophils (%) (Auto) 71.9 % (45.0-75.0) Lymphocytes (%) (Auto) 20.3 % (20.0-45.0) Monocytes (%) (Auto) 6.3 % (1.0-10.0) Eosinophils (%) (Auto) 0.8 % (0.0-3.0) Basophils (%) (Auto) 0.8 % (0.0-2.0) Sodium Level 138 MMOL/L (136-145) Potassium Level 4.0 MMOL/L (3.5-5.1) Chloride Level 104 MMOL/L (98-107) Carbon Dioxide Level 23 MMOL/L (21-32) Anion Gap 11 mmol/L (5-15) Blood Urea Nitrogen 16 mg/dL (7-18) Creatinine 1.3 MG/DL (0.55-1.30) Estimat Glomerular Filtration Rate > 60 mL/min (>60) Glucose Level 131 MG/DL (74-106) Calcium Level 8.8 MG/DL (8.5-10.1) Total Bilirubin 1.8 MG/DL (0.2-1.0) Direct Bilirubin 0.7 MG/DL (0.0-0.3) Aspartate Amino Transf (AST/SGOT) 35 U/L (15-37) Alanine Aminotransferase (ALT/SGPT) 36 U/L (12-78) Alkaline Phosphatase 161 U/L (46-116) Total Creatine Kinase 154 U/L (26-308) Creatine Kinase MB 1.7 NG/ML (0.0-3.6) Creatine Kinase MB Relative Index 1.1 Troponin I 0.031 ng/mL (0.000-0.056) Pro-B-Type Natriuretic Peptide 3340 pg/mL (0-125) Total Protein 7.0 G/DL (6.4-8.2) Albumin 3.1 G/DL (3.4-5.0) Globulin 3.9 g/dL Albumin/Globulin Ratio 0.8 (1.0-2.7) (Arnulfo Wilkinson DO) EKG Diagnostic Results Rate: tachycardiac Rhythm: NSR ST Segments: no acute changes (Sae Sanchez MD) Rate: normal Rhythm: NSR ST Segments: no acute changes (Arnulfo Wilkinson DO) Rhythm Strip Diag. Results EP Interpretation: yes Rate: 60 Rhythm: NSR, no PVC's, no ectopy (Arnulfo Wilkinson DO) Chest X-Ray Diagnostic Results Chest X-Ray Diagnostic Results : Chest X-Ray Ordered: Yes # of Views/Limited/Complete: 1 View Indication: Shortness of Breath EP Interpretation: Yes Interpretation: no consolidation, no pneumothorax, other - Cardiomegaly, pulmonary congestion Impression: Other - acute CHF Electronically Signed by: Arnulfo Wilkinson DO (Arnulfo Wilkinson DO) Last Vital Signs Date Time Temp Pulse Resp B/P (MAP) Pulse Ox O2 Delivery O2 Flow Rate FiO2 12/16/18 05:42 97.5 109 16 129/94 95 Room Air (Sae Sanchez MD) Status: improved (Arnulfo Wilkinson DO) Disposition: XFER SHT-TRM HOSP Condition: Serious Referrals: [facility],REFERRING (PCP) Sae Sanchez MD Dec 16, 2018 06:39 Arnulfo Wilkinson DO Dec 16, 2018 13:43
[2018-12-16 06:45] VITALS: BP 138/96
[2018-12-16 06:54] LABS: ALANINE AMINOTRANSFERASE 36 U/L (12-78); ALBUMIN 3.1 G/DL (3.4-5.0); ALBUMIN/GLOBULIN RATIO 0.8 (1.0-2.7); ALKALINE PHOSPHATASE 161 U/L (46-116); ASPARTATE AMINO TRANSFERASE 35 U/L (15-37); BILIRUBIN,DIRECT 0.7 MG/DL (0.0-0.3); BILIRUBIN,TOTAL 1.8 MG/DL (0.2-1.0); CKMB 1.7 NG/ML (0.0-3.6); CREATINE KINASE 154 U/L (26-308)
--- NOTE | 2018-12-16 07:14 | NUR ---
ED Nurse Note: Chest x-ray at the bedside
[2018-12-16 08:26] VITALS: BP 119/76
--- NOTE | 2018-12-16 08:50 | NUR ---
ED Nurse Note: Pt has been talking to his self
--- NOTE | 2018-12-16 09:00 | NUR ---
ED Nurse Note: Pt. was given warm blankets and water
--- NOTE | 2018-12-16 09:53 | Diagnostic Imaging Report ---
Indication: Shortness of breath Technique: One view of the chest Comparison: 11/30/2018 Findings: Body habitus limits evaluation Less optimal inspiration currently. Heart is enlarged. There is equivocal mild bilateral interstitial congestion and possibly right lung hazy opacity. The pleural spaces are clear. Impression: Cardiomegaly. Borderline interstitial congestion. Nonspecific right lung hazy opacity
--- NOTE | 2018-12-16 10:15 | NUR ---
ED Nurse Note: Telephone Report given to SHERRIE Ayala
[2018-12-16 10:29] VITALS: BP 118/72
--- NOTE | 2018-12-16 10:31 | NUR ---
ED Nurse Note: informed Dr. Wilkinson that pt. is feeling restless and is requesting for benadryl to help him to go to sleep.
--- NOTE | 2018-12-16 10:53 | NUR ---
ED Nurse Note: pt given juice
[2018-12-16 14:03] VITALS: BP 121/93
[2018-12-16 15:51] VITALS: BP 106/81
[2018-12-16 15:55] VITALS: BP 106/81
--- NOTE | 2018-12-16 15:56 | NUR ---
ED Nurse Note: Pt. left with all his belongings[facility] [facility] with no s/s of acute distress noted
== END 2018-12-16 15:58 | disposition short-term general hospital (02) ==
LOC: EMR 05:48
DX: I11.0 Hypertensive heart disease with heart failure (principal); I50.9 Heart failure, unspecified; F15.10 Other stimulant abuse, uncomplicated
CPT/HCPCS: 36415; 71045; 80053; 80307; 82248; 82550; 82553; 83880; 84484; 85025; 93005; 96374; 96375; 99285; J1940

== ENCOUNTER 2018-12-23 14:36 | Emergency (ER) | payer OTHER ==
[~2018-12-23] VITALS: Ht 172.7 cm; Wt 99.8 kg
[2018-12-23 14:45] VITALS: BP 122/74
[2018-12-23] MEDS ORDERED: FUROSEMIDE40 MG ORAL (14:54)
[2018-12-23] MEDS ORDERED: ASPIRIN EC81 MG ORAL (14:54)
[2018-12-23] MEDS ORDERED: CARVEDILOL3.125 MG ORAL (14:54)
[2018-12-23] MEDS ORDERED: LISINOPRIL5 MG ORAL (14:54)
[2018-12-23] MEDS ORDERED: POTASSIUM CHLO20 ME1 ORAL (14:54)
[2018-12-23] MEDS ORDERED: Acetaminophen 500mg (ES) tab ORAL ONE (15:15)
--- NOTE | 2018-12-23 15:28 | Emergency Room Report ---
History of Present Illness General Chief Complaint: Pain Source: Patient Present Illness HPI Patient is a 38-year-old male brought in by self after increased right lower extremity pain. Patient reports having a recent procedure on his right inguinal area. He reports of increased pain to the area. Patient had prior history of cardiomyopathy secondary to drug abuse. Reportedly had a recent procedure done at the [facility]. Patient had prior history of heart failure. He reports being compliant with his medications. Allergies: Coded Allergies: No Known Allergies (Unverified , 08/25/13) Patient History Past Medical History: see triage record Reviewed Nursing Documentation: PMH: Agreed; PSxH: Agreed Nursing Documentation-PMH Past Medical History: No History, Except For Hx Cardiac Problems: Yes - CHF Hx Hypertension: Yes Hx Cancer: No Hx Gastrointestinal Problems: No Review of Systems All Other Systems: negative except mentioned in HPI Physical Exam Vital Signs Date Time Temp Pulse Resp B/P (MAP) Pulse Ox O2 Delivery O2 Flow Rate FiO2 12/23/18 14:41 98.1 92 17 116/76 96 Room Air General Appearance: well appearing, no apparent distress, alert, GCS 15, obese Head: normocephalic, atraumatic ENT: hearing grossly normal, normal voice Neck: full range of motion, supple Respiratory: no respiratory distress, speaking full sentences Cardiovascular #1: normal inspection Musculoskeletal: normal inspection, no calf tenderness Neurologic: normal inspection, alert, oriented x3, responsive, business support manager III-XII nml as tested, normal gait Psychiatric: mood/affect normal Skin: no rash Medical Decision Making Diagnostic Impression: Primary Impression: Chronic pain Additional Impression: Amphetamine abuse ER Course Patient presented for right lower extremity pain. Differential diagnosis include was not limited to postoperative pain, vascular occlusion, deep venous thrombosis, drug-seeking behavior among other. patient has a benign exam and does not appear to require any further imaging or laboratory testing at this time. Patient is well-known to me from previous visits. Patient was noted to have some recent procedure at the [facility].Patient does not appear to have any acute evidence of infection.Patient reportedly had increased right lower extremity pain after cardiac catheterization. Patient was reportedly noted to have no evidence of ischemic cardiac disease per his corporate travel consultant.Lower extremity ultrasound showed no evidence of hematoma per tech. Patient's catheterization site appears to be clean and dry without any evidence of erythema or bruising.Patient given medications for pain. Patient is advised to follow-up with Dr. Walton. Labs Test 12/23/18 15:55 Urine Color Pale yellow Urine Appearance Clear Urine pH 6 (4.5-8.0) Urine Specific [place] 1.010 (1.005-1.035) Urine Protein Negative (NEGATIVE) Urine Glucose (UA) Negative (NEGATIVE) Urine Ketones Negative (NEGATIVE) Urine Blood Negative (NEGATIVE) Urine Nitrite Negative (NEGATIVE) Urine Bilirubin Negative (NEGATIVE) Urine Urobilinogen Normal MG/DL (0.0-1.0) Urine Leukocyte Esterase Negative (NEGATIVE) Urine Opiates Screen Negative (NEGATIVE) Urine Barbiturates Screen Negative (NEGATIVE) Phencyclidine (PCP) Screen Negative (NEGATIVE) Urine Amphetamines Screen Negative (NEGATIVE) Urine Benzodiazepines Screen Negative (NEGATIVE) Urine Cocaine Screen Negative (NEGATIVE) Urine Marijuana (THC) Screen Positive (NEGATIVE) Last Vital Signs Date Time Temp Pulse Resp B/P (MAP) Pulse Ox O2 Delivery O2 Flow Rate FiO2 12/23/18 14:45 98.3 86 18 122/74 98 Room Air Status: improved Disposition: HOME, SELF-CARE Condition: Stable Scripts Hydrocodone Bit/Acetaminophen 5-325* (NORCO 5-325*) 1 Each Tablet 1 TAB ORAL Q6H PRN for For Pain, #10 TAB 0 Refills Prov: Sae Sanchez MD 12/23/18 Referrals: NON PHYSICIAN (PCP) Sae Sanchez MD Dec 23, 2018 15:28
[2018-12-23] MEDS ORDERED: NORCO 5-325 TA1 EACH ORAL (16:27)
[2018-12-23 16:28] LABS: APPEARANCE,URINE CLEAR; BILIRUBIN, URINE NEGATIVE (NEGATIVE); COLOR,URINE PALE YELLOW; GLUCOSE, URINE (UA) NEGATIVE (NEGATIVE); KETONES,URINE NEGATIVE (NEGATIVE); LEUKOCYTE ESTERASE ,URINE NEGATIVE (NEGATIVE); NITRITE,URINE NEGATIVE (NEGATIVE); PH,URINE 6 (4.5-8.0); PROTEIN,URINE NEGATIVE (NEGATIVE); UROBILINOGEN,URINE NORMAL MG/DL (0.0-1.0)
--- NOTE | 2018-12-23 16:49 | Diagnostic Imaging Report ---
Indication: Recent procedure involving the right groin. Patient complains of pain. Technique: Grayscale and duplex Doppler imaging of the right lower extremity arteries from the common femoral artery to the popliteal artery performed in real-time. Comparison: None Findings: There is visualization of the lower portion of the external iliac artery on the right. Common femoral arteries superficial femoral artery and popliteal arteries are well seen and show normal antegrade flow with triphasic and biphasic waveforms. There is no stenosis identified. There is no evidence of a hematoma in the right groin. IMPRESSION: No evidence of a right groin hematoma or pseudoaneurysm. No high-grade arterial stenosis identified.
[2018-12-23 17:16] VITALS: BP 126/72
== END 2018-12-23 17:17 | disposition home or self-care (01) ==
LOC: EMR 15:02
DX: G89.29 Other chronic pain (principal); F15.10 Other stimulant abuse, uncomplicated; I11.0 Hypertensive heart disease with heart failure; I50.9 Heart failure, unspecified
CPT/HCPCS: 80307; 81003; 93926; 99284

== ENCOUNTER 2018-12-31 01:44 | Emergency (ER) | payer OTHER ==
[~2018-12-31] VITALS: Ht 172.7 cm; Wt 99.8 kg
[~2018-12-31 01:44] MED LIST changes: +ASPIRIN EC81 MG ORAL; +NORCO 5-325 TA1 EACH ORAL; +POTASSIUM CHLO20 ME1 ORAL
[2018-12-31 01:55] VITALS: BP 127/87
[2018-12-31 02:25] VITALS: BP 127/87
--- NOTE | 2018-12-31 02:25 | Emergency Room Report ---
History of Present Illness General Chief Complaint: General Complaint Source: Patient Present Illness HPI Patient present with complaints of swelling to his abdomen over the past few days Denies any vomiting denies any chest pain or short of breath Patient has been noncompliant with his diuretics Denies any fevers or chills Patient has previous visit with medical history including CHF EF approximately 20% Denies any recent travel denies any pleurisy Abdominal discomfort is fairly diffuse and complains mainly of the swelling sensation Allergies: Coded Allergies: No Known Allergies (Unverified , 08/25/13) Patient History Past Medical History: see triage record Pertinent Family History: none Reviewed Nursing Documentation: PMH: Agreed; PSxH: Agreed Nursing Documentation-PMH Hx Cardiac Problems: Yes - CHF Hx Hypertension: Yes Hx Cancer: No Hx Gastrointestinal Problems: No Review of Systems All Other Systems: negative except mentioned in HPI Physical Exam Vital Signs Date Time Temp Pulse Resp B/P (MAP) Pulse Ox O2 Delivery O2 Flow Rate FiO2 12/31/18 01:49 97.7 110 18 127/87 96 Room Air Sp02 EP Interpretation: reviewed, normal General Appearance: no apparent distress Head: normocephalic, atraumatic Eyes: bilateral eye PERRL, bilateral eye EOMI ENT: hearing grossly normal, normal pharynx, TMs + canals normal, uvula midline Neck: full range of motion, supple, no meningismus, no bony tend Respiratory: lungs clear, normal breath sounds, no rhonchi, no respiratory distress, no retraction, no accessory muscle use Cardiovascular #1: normal peripheral pulses, regular rate, rhythm, no edema, no gallop, no JVD, no murmur Gastrointestinal: normal bowel sounds, non tender, soft, no mass, no organomegaly, non-distended, no guarding, no hernia, no pulsatile mass, no rebound Genitourinary: no CVA tenderness Musculoskeletal: normal inspection Neurologic: oriented x3, responsive, assembler steam and gas turbine III-XII nml as tested, motor strength/ tone normal, sensory intact Psychiatric: mood/affect normal Skin: normal color, no rash, warm/dry, palpation normal Lymphatic: normal inspection, no adenopathy Medical Decision Making Diagnostic Impression: Primary Impression: Abdominal pain ER Course With the history exam and presentation, multiple differentials considered, including but not limited to appendicitis, gastritis, cholecystitis, diverticulitis Patient has a benign medical evaluation Remains hemodynamically stable on cardiac monitoring Patient has had fairly significant multiple evaluations through the emergency room I had further discussion with him regarding appropriate outpatient follow- up and patient will return with any changes Last Vital Signs Date Time Temp Pulse Resp B/P (MAP) Pulse Ox O2 Delivery O2 Flow Rate FiO2 12/31/18 01:55 110 18 Room Air 12/31/18 01:55 97.7 127/87 96 Status: unchanged Disposition: HOME, SELF-CARE Condition: Stable Referrals: NOT CHOSEN [facility]/MD,REFERRING (PCP) Patient Instructions: Abdominal Pain, Adult, [id number] Additional Instructions: Patient is provided with the discharge instructions notified to follow up with primary doctor in the next 2-3 days otherwise return to the er with any worsening symptoms. Please note that this report is being documented using [employer] technology. This can lead to erroneous entry secondary to incorrect interpretation by the dictating instrument. Arnulfo Wilkinson DO Dec 31, 2018 02:25
--- NOTE | 2018-12-31 02:25 | NUR ---
ER DISCHARGE NOTE: Patient is cleared to be discharged per ERMD, pt is aox4, on room air, with stable vital signs. pt was given dc and prescription instructions, pt was able to verbalize understanding, pt id band removed without complications. pt is able to ambulate with steady gait. pt took all belongings.
== END 2018-12-31 02:25 | disposition home or self-care (01) ==
LOC: EMR 02:07
DX: R10.9 Unspecified abdominal pain (principal); I11.0 Hypertensive heart disease with heart failure; I50.9 Heart failure, unspecified
CPT/HCPCS: 99282

== ENCOUNTER 2019-01-28 01:36 | Emergency (ER) | payer OTHER ==
[~2019-01-28] VITALS: Ht 172.7 cm; Wt 108.9 kg
--- NOTE | 2019-01-28 01:51 | NUR ---
ED Nurse Note: pt walked in due to medication refill on lasix.
[2019-01-28 01:52] VITALS: BP 123/94
[2019-01-28] MEDS ORDERED: FUROSEMIDE20 M1 ORAL (02:03)
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
[2019-01-28 02:06] VITALS: BP 123/94
--- NOTE | 2019-01-28 02:06 | NUR ---
ER DISCHARGE NOTE: Patient is cleared to be discharged per ERMD, pt is aox4, on room air, with stable vital signs. pt was given dc and prescription instructions, pt was able to verbalize understanding, pt id band removed. pt is able to ambulate with steady gait. pt took all belongings.
[2019-01-29] MEDS ORDERED: IBUPROFEN600 MG ORAL (01:31)
== END 2019-01-28 02:06 | disposition home or self-care (01) ==
LOC: EMR 02:00
DX: I50.9 Heart failure, unspecified (principal); F15.10 Other stimulant abuse, uncomplicated; Z76.0 Encounter for issue of repeat prescription; I10 Essential (primary) hypertension
CPT/HCPCS: 99282

== ENCOUNTER 2019-01-29 01:05 | Emergency (ER) | payer OTHER ==
[~2019-01-29] VITALS: Ht 175.3 cm; Wt 99.8 kg
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
[2019-01-29] MEDS ORDERED: IBUPROFEN600 MG ORAL (01:31)
[2019-01-29 01:34] VITALS: BP 125/82
== END 2019-01-29 01:34 | disposition home or self-care (01) ==
LOC: EMR 01:19
DX: M25.562 Pain in left knee (principal); I50.9 Heart failure, unspecified; F15.10 Other stimulant abuse, uncomplicated; R10.9 Unspecified abdominal pain; M54.9 Dorsalgia, unspecified; I11.0 Hypertensive heart disease with heart failure; Z91.14 Patient's other noncompliance with medication regimen
CPT/HCPCS: 99282

== ENCOUNTER 2019-07-15 14:57 | Emergency (ER) | payer OTHER ==
[~2019-07-15] VITALS: Ht 172.7 cm; Wt 90.7 kg
--- NOTE | 2019-07-15 15:09 | NUR ---
ED Nurse Note: Patient walked in c/o left forearm pain, swelling due to skin rash/abscess and penile pain x 2 days; patient states 'I don't know what happened' Pt is A&O x4, V/S stable with no s/s of acute distress noted at this time.
[2019-07-15 15:12] VITALS: BP 105/57
[2019-07-15] MEDS ORDERED: Ketorolac 30mg Inj IM ONE (15:45)
[2019-07-15] MEDS ORDERED: Bicillin LA 2.4MMU/4ML SYR IM ONE (15:45)
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
[2019-07-15] MEDS ORDERED: CEPHALEXIN500 MG ORAL (16:17)
[2019-07-15] MEDS ORDERED: BACITRACIN-P28.35 GM TP (16:17)
[2019-07-15 16:32] VITALS: BP 118/61
--- NOTE | 2019-07-15 16:34 | NUR ---
ER DISCHARGE NOTE: Patient is cleared to be discharged per PA, pt is aox4, on room air, with stable vital signs. pt was given dc and prescription instructions, pt was able to verbalize understanding, pt id band removed. pt is able to ambulate with steady gait. pt took all belongings.
== END 2019-07-15 16:35 | disposition home or self-care (01) ==
LOC: EMR 15:22
DX: R21 Rash and other nonspecific skin eruption (principal); L98.8 Other specified disorders of the skin and subcutaneous tissue; I11.0 Hypertensive heart disease with heart failure; I50.9 Heart failure, unspecified
CPT/HCPCS: 96372; 99283; J1885

== ENCOUNTER 2020-02-20 03:48 | Emergency (ER) | payer OTHER ==
[~2020-02-20] VITALS: Ht 172.7 cm; Wt 90.7 kg
[~2020-02-20 03:48] MED LIST changes: +BACITRACIN-P28.35 GM TP
[2020-02-20 04:10] VITALS: BP 125/85
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
[2020-02-20] MEDS ORDERED: Tetanus/Diptheria/Pertussis IM ONE (04:15)
[2020-02-20] MEDS ORDERED: Acetaminophen 500mg (ES) tab ORAL ONE (04:15)
[2020-02-20] MEDS ORDERED: TYLENOL EXTRA500 MG ORAL (04:37)
[2020-02-20] MEDS ORDERED: SILVADENE20 GM TP (04:37)
[2020-02-20] MEDS ORDERED: FAMOTIDINE20 MG ORAL (04:37)
--- NOTE | 2020-02-20 04:40 | NUR ---
ED Nurse Note: Cream placed on pt and bandaged by tech.
[2020-02-20 04:50] VITALS: BP 127/90
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
== END 2020-02-20 04:50 | disposition home or self-care (01) ==
LOC: EMR 04:07
DX: T21.02XA Burn of unspecified degree of abdominal wall, initial encounter (principal); Z23 Encounter for immunization; I11.0 Hypertensive heart disease with heart failure; I50.9 Heart failure, unspecified; X10.0XXA Contact with hot drinks, initial encounter; Y92.9 Unspecified place or not applicable; E66.9 Obesity, unspecified; Z68.30 Body mass index [BMI] 30.0-30.9, adult
CPT/HCPCS: 90471; 90715; Z7502; 99283

== ENCOUNTER 2020-10-14 12:34 | Emergency (ER) | payer OTHER ==
[~2020-10-14] VITALS: Ht 172.7 cm; Wt 96.2 kg
[~2020-10-14 12:34] MED LIST changes: +FAMOTIDINE20 MG ORAL; +SILVADENE20 GM TP
[2020-10-14 13:15] VITALS: BP 149/111
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
[2020-10-14 14:01] LABS: EOSINOPHILS % (AUTO) 1.1 % (0.0-3.0); HEMOGLOBIN 11.5 G/DL (14.2-18.0); LYMPHOCYTES % (AUTO) 27.6 % (20.0-45.0); MEAN CORPUSCULAR VOLUME 80 FL (80-99); MONOCYTES % (AUTO) 9.9 % (1.0-10.0); NEUTROPHILS % (AUTO) 60.3 % (45.0-75.0); PLATELET COUNT 185 K/UL (150-450); RED BLOOD COUNT 4.69 M/UL (4.70-6.10); RED CELL DISTRIBUTION WIDTH 19.4 % (11.6-14.8); WHITE BLOOD COUNT 11.1 K/UL (4.8-10.8)
[2020-10-14 14:11] LABS: HEMATOCRIT 37.4 % (42.0-52.0)
[2020-10-14] MEDS ORDERED: Morphine Sulfate 4mg/ml Inj (IV USE ONLY) IVP ONE (14:15)
[2020-10-14 14:18] LABS: ANION GAP 11 mmol/L (5-15); BLOOD UREA NITROGEN 29 mg/dL (7-18); CALCIUM 8.2 MG/DL (8.5-10.1); CARBON DIOXIDE 22 MMOL/L (21-32); CHLORIDE 103 MMOL/L (98-107); CREATININE 1.5 MG/DL (0.55-1.30); POTASSIUM 3.7 MMOL/L (3.5-5.1); SODIUM 136 MMOL/L (136-145)
--- NOTE | 2020-10-14 14:30 | NUR ---
ED Nurse Note: Pt walked into ED for c/o SOB and Bilateral chest pain 05/24 since yesterday. He is 96% RA. Pt is alert and orientedx4, ambulatory. Pt has been seen by ERMD. Set up on monitor. IV established and labs drawn.
[2020-10-14 14:36] LABS: ALANINE AMINOTRANSFERASE 84 U/L (12-78); ALBUMIN 2.9 G/DL (3.4-5.0); ALBUMIN/GLOBULIN RATIO 0.7 (1.0-2.7); ALKALINE PHOSPHATASE 169 U/L (46-116); ASPARTATE AMINO TRANSFERASE 59 U/L (15-37); BILIRUBIN,TOTAL 1.8 MG/DL (0.2-1.0)
[2020-10-14 15:05] VITALS: BP 147/104
--- NOTE | 2020-10-14 15:22 | Diagnostic Imaging Report ---
Indication: Chest pain Technique: One view of the chest Comparison: 12/16/2018 Findings: Body habitus limits evaluation. The heart is enlarged. No definite acute infiltrates, effusions, or congestion. Impression: Cardiomegaly. No definite acute process
--- NOTE | 2020-10-14 16:33 | NUR ---
ED Nurse Note: Report given to [facility].
--- NOTE | 2020-10-14 17:00 | NUR ---
ED Nurse Note: Pt transferred with all belongings. No acute distress. Cleared by ERMD to be transferred.
[2020-10-14 17:12] VITALS: BP 146/108
== END 2020-10-14 17:00 | disposition short-term general hospital (02) ==
LOC: EMR 12:57
DX: I11.0 Hypertensive heart disease with heart failure (principal); I50.9 Heart failure, unspecified; F15.10 Other stimulant abuse, uncomplicated; N28.9 Disorder of kidney and ureter, unspecified
CPT/HCPCS: 36415; 71045; 80053; 80307; 82248; 83880; 84484; 85025; 93005; 96374; 96375; J1940; J2270; Z7502; 99291